=== PATIENT | female | born 1975 | race Caucasian/White ===

== ENCOUNTER 2017-12-02 04:42 | Inpatient (IN) | payer MEDICAID, SELFPAY ==
[2017-12-02] VITALS (33 sets, daily range): BP systolic 90–162; BP diastolic 50–101; PULSE 52–82; RESP 12–22; TEMP 35.6–36.6; O2SAT 93–100; BMI 24.5; BMI 23.6
--- NOTE | 2017-12-02 04:54 | EKG12_ITS ---
Test Reason : CP Blood Pressure : / mmHG Vent. Rate : 068 BPM Atrial Rate : 068 BPM P-R Int : 126 ms QRS Dur : 074 ms QT Int : 388 ms P-R-T Axes : 073 -17 -01 degrees QTc Int : 412 ms Normal sinus rhythm Nonspecific T wave abnormality Abnormal ECG Confirmed by LAURIE ANGELA, JOSE DE JESUS ([id number]), news editor BIRDIE JEFFREY ([id number]) on 12/04/2017 10:47:56 AM Referred By: NATHAN Confirmed By:JOSE DE JESUS SULLIVAN MD
--- NOTE | 2017-12-02 04:56 | ED.VISSUMM ---
- ER Visit Summary Date of Service: 12/02/17 Chief Complaint: [] Chest pain History of Present Illness: The patient is a 42 F [] complaining of midsternal chest pain with radiation to left upper extremity. Reports symptoms started 3 hours ago and awoke her from sleep. Patient reports similar symptoms in the past and was evaluated about 1 year ago for similar presentation and she ultimately had a negative stress test. Patient does report a history of COPD and is still an active smoker. No other complaints at this time. Physical Examination: [] Afebrile, vital signs stable. Cardiovascular exam is regular rate and rhythm. Lungs are clear to auscultation. Abdomen is soft and nontender. There is no lower extremity edema. Test Results: [] EKG shows normal sinus rhythm with a rate of 68 without ischemic changes or ectopy. Unchanged from previous EKG.CBC, BMP within normal limits. Chest x-ray negative per my interpretation. Troponin shows an indeterminate level of 0.14. Emergency Department Course and Treatment: [] Patient given nitroglycerin and intravenous morphine for symptom relief. Aspirin was provided upon arrival. In light of the patient's indeterminate troponin she will be admitted to the medical floor for further evaluation and serial enzymes. Case was discussed with the hospitalist, Dr. Hussein. Admit to telemetry. Disposition: [] Admission, stable. Impression: [] Chest pain Indeterminate troponin This note was generated with Jinni dictation software. It may contain incorrect words, spelling, and punctuation that were not noted in review of the chart prior to signing ED Disposition - Plan for ED Patient: Chief Complaint: Chest Pain Referrals: Bennett Blandon MD [Primary Care Provider] -
[2017-12-02 05:02] LABS: Absolute Lymphocyte Count 2.91 X10^3/ul (0.83-4.51); Absolute Neutrophil Count 4.7 X10^3/uL (2.0-7.7); Basophil# 0.07 X10^3/uL; Basophil% 0.8 % (0-1); Eosinophil# 0.13 X10^3/uL; Eosinophils% 1.5 % (0-5); Hematocrit 41.9 % (37-47); Hemoglobin 14.2 g/dl (12.0-15.0); Lymphocyte # 2.91 X10^3/ul (4.0); Lymphocyte % 33.7 % (19-41); Mean Corp Hgb Conc 33.9 g/gl (32-36); Mean Corpuscular Hgb 32.8 pg (27.0-32.0); Mean Corpuscular Volume 96.8 fL (81-99); Mean Platelet Vol. 9.1 fl (6.2-12.0); Monocyte% 9.3 % (0-10); Neutrophil # 4.71 X10^3/uL (2.7-7.7); Neutrophil % 54.5 % (47-70); Platelet Count 240 K/mm3 (150-450); RBC Distribution Width CV 12.9 % (11.6-14.6); RBC Distribution Width SD 44.8 fl (35.1-43.9); Red Blood Count 4.33 M/mm3 (4.2-5.4); White Blood Count 8.6 K/mm3 (4.4-11.0)
[2017-12-02 05:04] LABS: POSITIVE COUNT NO; POSITIVE DIFFERENTIAL NO; POSITIVE MORPHOLOGY NO
[2017-12-02] MEDS: Aspirin 81 MG TAB.CHEW 324 MG PO (05:05)
[2017-12-02 05:10] LABS: D-Dimer Quantitative (DVT/PE) 0.42 FEU/ug/m (0.27-0.49)
[2017-12-02] MEDS: Ondansetron 4 MG/2 ML Vial IV (05:22)
[2017-12-02 05:28] LABS: Anion Gap 8 (5-15); BUN 10 mg/dL (7-18); BUN/Creat Ratio 13.8 RATIO (10-20); Chloride 103 mmol/L (98-107); Creatinine, Serum 0.72 mg/dL (0.55-1.02); EST Glomerular Filtration Rate 93 mL/min (>60); Est Glom Filt Rate - Afr Amer 113 mL/min (>60); Estimated Creatinine Clearance 83.34 ml/min; Glucose 108 mg/dL (70-110); Potassium 4.4 mmol/L (3.5-5.1); Sodium Level 140 mmol/L (136-145)
--- NOTE | 2017-12-02 05:31 | RAD_ITS ---
STUDY: X-RAY CHEST REASON FOR EXAM: Female, 42 years old. Chest pain TECHNIQUE: Frontal and lateral views of the chest. COMPARISON: 07/25/2017 FINDINGS: The lungs are clear and expanded. There is no demonstrated pleural abnormality. Normal size heart. Normal mediastinum and kt. Normal visualized pulmonary arteries. Normal visualized aortic arch and descending thoracic aorta. Normal visualized thoracic spine. Normal visualized ribs, clavicles, and shoulders. There is no demonstrated abnormality of the visualized soft tissue structures of the upper abdomen. RAD/Chest PA and Lateral IMPRESSION: Normal x-ray examination of the chest. Electronically Signed: Isaías Huddleston MD at 5:57 EST Tel , Service support ,
--- NOTE | 2017-12-02 06:38 | HP.PCM_ITS ---
Problem List (1) Chest pain Status: Acute (2) Acute respiratory failure with hypoxemia Status: Acute (3) Hyponatremia Status: Acute (4) Lethargy Status: Acute (5) Trimalleolar fracture of left ankle Status: Acute Comment: 06/09....stepped in a hole (6) COPD (chronic obstructive pulmonary disease) Status: Chronic (7) Smoking addiction Status: Chronic History of Present Illness Date of Admission: 12/02/17 Chief Complaint: Chest pain The patient is a 42 year old female w/ h/o COPD, tobacco abuse, and HTN admitted for chest pain. She had chest pain this AM around 1AM. Pain was sudden and severe that it woke her up from her sleep. Pain was pressure on the left chest. It radiated down the left arm and caused ache in the left arm. Nothing appeared to make it better or worse. Morphine helped with the pain. She had similar episode of pain last year and had a stress test done about a year ago that was negative. She still smokes and lives a sedentary lifestyle. Past Medical History Past Medical History (Chronic Problems): Chronic Problems Smoking addiction (Chronic) COPD (chronic obstructive pulmonary disease) (Chronic) Allergies bupropion HCl [From Wellbutrin] Adverse Reaction (Verified 12/02/17 04:44) Other prednisone Adverse Reaction (Verified 12/02/17 04:44) Other Home Medications: Ambulatory Orders Medication Instructions Recorded Albuterol Aerosols [Ventolin 2.5 mg INHALATION Q4HWA.RT 02/16/17 Aerosols] Albuterol Inhaler [Ventolin Hfa] 2 puff INHALATION Q4H PRN PRN #1 02/16/17 inhaler Budesonide/Formoterol 160/4.5 2 puff INHALATION BID 12/02/17 [Symbicort 160/4.5 Mcg Inhaler (SP)] Surgical History: hysterectomy - with BL oophorectomy for cervical CA,, - - neurosurgery to repair a intracerebral aneurysm. 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 Denies: Palpitations Respiratory: Denies: Cough, Shortness of breath at rest, Sputum production Gastrointestinal: Denies: Abdominal Pain, Nausea, Vomiting Genitourinary: Denies: Dysuria Musculoskeletal: Denies: Joint Pain, Joint Tenderness Skin: Denies: Rash, Wounds Neurological: Denies: Numbness, Tingling, Focal weakness Psychiatric: Denies: Anxiety, Depression, Homicidal Ideations, Suicidal Ideations Hematologic/ Lymphatic: Denies: Easy Bruising, Easy Bleeding VTE Information - Inpt Only VTE Present on Admission: No VTE Mechan Device Prophylaxis: SCD's VTE Pharm Prophylaxis ordered?: Yes Patient Problems: Active and Suspected Problems Chest pain (Acute) - Physical Exam General: Alert, Oriented x3, Cooperative HEENT: Atraumatic, PERRLA, EOMI, Normocephalic Neck: Supple, No JVD, Negative Carotid Bruits Lungs: Short of Breath, Wheezes Cardiovascular: Regular rate, No murmurs Abdomen: Bowel Sounds Present, Soft, Non Tender Extremities: No edema, Capillary Refill Less than 3 Seconds Skin: No rashes, No breakdown Musculoskeletal: No Tenderness to Palpation of Joints or Extremities Neurological: Cranial nerves II-XII grossly intact Psych/Mental Status: Normal Affect, Appropriate Vital Signs Temp Pulse Resp BP Pulse Ox 96.1 F L 69 20 H 106/69 96 12/02/17 04:43 12/02/17 05:53 12/02/17 05:53 12/02/17 05:53 12/02/17 05:53 Oxygen Flow Rate 2 Oxygen Delivery Method Nasal Cannula Weight: 62.9 kg Body Mass Index (BMI) 24.5 Laboratory Tests Past 24 Hrs 12/02/17 12/02/17 12/02/17 04:54 04:54 04:54 WBC 8.6 RBC 4.33 Hgb 14.2 Hct 41.9 MCV 96.8 MCH 32.8 H MCHC 33.9 RDW 12.9 RDW Differential 44.8 H Plt Count 240 MPV 9.1 Immature Gran % (Auto) 0.200 Neut % (Auto) 54.5 Lymph % (Auto) 33.7 Crisp % (Auto) 9.3 Eos % (Auto) 1.5 Baso % (Auto) 0.8 Absolute Neuts (auto) 4.7 Absolute Lymphs (auto) 2.91 Total Counted Not Reportable D-Dimer Quant (PE/DVT) 0.42 Sodium 140 Potassium 4.4 Chloride 103 Carbon Dioxide 29.0 Anion Gap 8 BUN 10 Creatinine 0.72 Estim Creat Clear Calc 83.34 Est GFR (MDRD) Af Amer 113 Est GFR (MDRD) Non-Af 93 BUN/Creatinine Ratio 13.8 Glucose 108 Calcium 9.0 Troponin I 0.14 H Assessment/Plan Active and Suspected Problems Chest pain (Acute) 42 year old female w/ h/o COPD, tobacco abuse, and HTN admitted for chest pain. 1) Chest pain: Heart score 4 EKG and xray unremarkable. Trop elevated 0.14 Will get lipid. Will start statin, ASA, nitro, morphine, oxygen and coreg. Serial trops and stress test in AM. ECHO pending. Monitor. 2) Tobacco abuse: Education done. Monitor. 3) COPD: No acute exacerbation. Resume home meds. C/w bronchodilator. Monitor. 4) Prophylaxis: Heparin / SCD.
--- NOTE | 2017-12-02 07:07 | NURSING ---
Pt. arrived to PCU room 122 around 0645. No c/o pain or SOB at this time. Admission started, will report off to dayshift RN to finish admission. Pt. VSS
--- NOTE | 2017-12-02 08:13 | PCM.PN.BLA ---
Progress Note Patient is a 42-year-old female with a past medical history of hypertension, nicotine dependence, COPD, cervical cancer with BRIANNA/BSO and resection of an intracerebral aneurysm who presented to the emergency room at [facility] on 12/02/2017 complaining of chest pain that awoke her from sleep. It was located at the left chest and radiated down the left arm. Significant lab in the emergency room included a normal d-dimer at 0.42 and a troponin elevation to 0.14. Chest x-ray showed no infiltrates, pulmonary vascular congestion or pleural effusions. CTA of the chest done 1 year ago showed a normal aortic arch. Stress test on 07/26/2016 was negative for ischemia and the gated nuclear ejection fraction was 70%. Troponin has been increased in the past to 0.17, 1 month prior to the stress test. It has also been < 0/02 in the past. EKG showed no suspicious ST or T-wave changes and was unchanged from prior EKG. She was admitted to a monitored bed on PCU and stress test has been ordered for Sunday a.m. and also an echocardiogram. The pain last night was a 10/10 and currently is a 3/10. She has been getting exertional CP for the past year and it goes away with rest for a few minutes. The pain last night was associated with Nausea and she vomited twice.....once at home and once in the ER. She also had diaphoresis and the pain radiated down the left arm. She gets reflux sometimes and it goes away with baking soda and water but, last night she tried this and it did not work. The SL NTG made the pain better but it would recur. The CP last night would be severe for a few minutes, go away and then come right back. EKG's show non-specific T wave flattening with no ST elevation. There is a FH of CAD in her maternal GF and she thinks her mother recently had an SC, but it may have been a stroke. She has been smoking since the age of 13 and is currently smoking 1 PPD. Telemetry shows NSR with no significant ectopy. RR slows down at night. Has never been tested for sleep apnea. Alert and oriented ?3, having some chest discomfort but only a 3/10 and nonradiating Lungs-clear to auscultation Heart-regular rate and rhythm, normal S1, normal S2, no murmur, no gallop, no rub Abdomen-soft, nontender, nondistended, normal bowel sounds, no bruits Carotids-brisk upstroke with good pulse volume and no bruits heard No jugular vein distention Affect is flat Nonfocal neuro exam Impressions 1. NSTEMI 2. Hypertension 3. COPD 4. Tobacco dependence 5. History of cervical cancer, status post BRIANNA/BSO 6. History of intracerebral aneurysm-status post clipping Start nitroglycerin infusion Loading dose of Plavix, 300 mg Lovenox 1 mg/kg subcu ?[address] Alonso-will likely need cardiac catheterization smoking cessation counseling given Aspirin 81 mg daily Increase atorvastatin to 80 mg p.o. nightly Continue carvedilol ordered by Dr. Hussein Echo in the a.m. 40 minutes spent getting hx, reviewing chart, placing orders and discussing with Dr. Alonso and follow up visits to ensure the pain is improving. Code Visit Procedures: 47633 Prolonged Physician INPT
[2017-12-02] MEDS: Aspirin E.C. 81 MG Tablet PO (09:40)
[2017-12-02] MEDS: Carvedilol 3.125 MG TABLET PO ×2 (09:40→21:22)
[2017-12-02 10:10] LABS: Cholesterol 209 mg/dL (200); High Density Lipoprotein 46 mg/dL; Triglycerides 138 mg/dL; Very Low Density Lipoprotein 28 mg/dL (5-40)
[2017-12-02 10:21] LABS: International Normalized Ratio 0.9
[2017-12-02] MEDS: Clopidogrel Bisulfate 300 MG Tablet PO (10:21)
[2017-12-02] MEDS: Enoxaparin 60 MG/0.6 ML Syringe SC ×2 (10:21→17:57)
[2017-12-02 10:22] LABS: Partial Thromboplast Time 31.3 Seconds (24.1-36.2)
[2017-12-02] MEDS: Albuterol 2.5 MG/3 ML VIAL.NEB. INHALATION ×2 (11:14→20:30)
[2017-12-02] MEDS: Budesonide Respules 0.5 MG/2 ML AMPUL.NEB. INHALATION (11:15)
--- NOTE | 2017-12-02 11:44 | PCM.CONS.C ---
Problem List (1) Non-STEMI (non-ST elevated myocardial infarction) Status: Acute (2) Smoking addiction Status: Chronic (3) Chest pain Status: Acute Reason for Consult Date of Consultation: 12/02/17 Reason for Consultation: Chest pain, non-STEMI, tobacco abuse, History of Present Illness: The patient is a 42 year old F, no previous known cardiac history, nondiabetic, positive smoker 1 pack per day for the past 30 years, nondrinker, occasional THC, last dose 3 days ago, apparently with previously known hypertension hypercholesterolemia but on no medications. In July 2016 the patient developed substernal chest pain and underwent a non-walking nuclear stress test which reportedly was negative for inducible ischemia. Patient has never had a catheterization. Last evening around 1 AM she awoke with severe substernal 10 out of 10 chest heaviness, with associated nausea and vomiting, which waxed and waned over the next several hours about 4 times. When the pain came back fourth time, she was brought to the emergency room where her chest pain was relieved with sublingual nitroglycerin. Her initial EKG showed normal sinus rhythm with subtle nonspecific ST and T-wave changes. Her initial troponin was 0.14, and now is increased to 0.86. Patient has had periodic chest pain this morning which is relieved with sublingual nitroglycerin. She is currently chest pain-free. Patient was treated with baby aspirin, subcu Lovenox, and transitioned to nitroglycerin paste. On further history she denies any exertional chest pain, angina, shortness of breath prior to this event last evening other than the event in July 2016. Patient does report decreased exercise capacity and increasing fatigue. On further history the patient has had a diagnosis of a uterine type cancer in 2002 and reportedly is status post partial and complete hysterectomy. She required no chemotherapy or x-ray therapy after that. [] Past Medical History Allergies/Adverse Reactions: Allergies bupropion HCl [From Wellbutrin] Adverse Reaction (Verified 12/02/17 04:44) Other prednisone Adverse Reaction (Verified 12/02/17 04:44) Other Home Medications: Ambulatory Orders Medication Instructions Recorded Albuterol Aerosols [Ventolin 2.5 mg INHALATION Q4HWA.RT 02/16/17 Aerosols] Albuterol Inhaler [Ventolin Hfa] 2 puff INHALATION Q4H PRN PRN #1 04/14/17 inhaler Budesonide/Formoterol 160/4.5 2 puff INHALATION PRN PRN 12/02/17 [Symbicort 160/4.5 Mcg Inhaler (SP)] Past Medical History (Chronic Problems): Chronic Problems Smoking addiction (Chronic) COPD (chronic obstructive pulmonary disease) (Chronic) Surgical History: hysterectomy - with BL oophorectomy for cervical CA,, - - neurosurgery to repair a intracerebral aneurysm. 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 Denies: Shortness of Breath, Orthopnea, PND, Peripheral Edema, Palpitations, Lightheadedness, Dizziness, Near Syncope, Syncope Respiratory: Denies: Cough, Sputum Production, Hemoptysis Gastrointestinal: Reports: Nausea, Emesis. Denies: Hematemesis, Hematochezia, Melena Genitourinary: Denies: Dysuria, Hematuria Skin: Denies: Rash Subjectve: Patient chest pain-free, no acute distress. Objective: Vital Signs Temp Pulse Resp BP Pulse Ox 98 F 52 L 16 91/64 98 12/02/17 06:48 12/02/17 11:16 12/02/17 11:16 12/02/17 11:05 12/02/17 11:05 Oxygen Flow Rate 2 Oxygen Delivery Method Nasal Cannula Weight: 133 lb 6.075 oz Body Mass Index (BMI) 23.6 Intake and Output for Last 24 Hours 11/30/17 12/01/17 12/02/17 23:59 23:59 23:59 Intake Total 100 / 100 Balance 100 / 100 General: Awake, Alert, Oriented x 3 HEENT: PERRL, EOMI, Sclera Non Icteric Neck: Supple, Good ROM, No Lymph Node Enlargement Lungs: Clear to auscultation Cardiovascular: Regular Rhythm, Normal S1, Normal S2, No Murmurs, No Rubs, No Gallops Vascular: No Carotid Bruits, Normal Femoral Pulses, Normal Radial Pulses, Normal Dorsalis Pedal Pulse, Normal Posterior Tibial Pulses Abdomen: Bowel Sounds Present, Soft, Non Tender, No HSM, No Organomegaly Extremities: No Cyanosis, No Clubbing, No edema Neurological: No Focal Motor or Sensory Deficit 12/02/17 08:27: Troponin I 0.86 H* 12/02/17 08:27: Triglycerides 138, Cholesterol 209 H, LDL Cholesterol 135 H, VLDL Cholesterol 28, HDL Cholesterol 46 12/02/17 10:05: PT 12.0, INR 0.9, APTT 31.3 Rhythm: Telemetry negative. EKG: As above ECHO: Pending Stress Test: Cardiac Cath: Pending PCI: CT Surgery: Holter monitor: EPS: PPM: CXR: Chest CT Scan: As above Assessment/Plan #1. Unstable angina: The patient presents with acute onset substernal chest pain waking her up from a sound sleep, waxing and waning chest pain since that time, abnormal initial troponin 0 0.14 increase and is 0.86. At this point I recommend the patient continue baby aspirin 81 mg p.o. daily, that should be loaded with Plavix 300 mg ?1 now followed by 75 mg a day, continued subcu Lovenox 1 mg/kg subcu twice daily holding it for tomorrow morning in anticipation for left heart catheterization. The risks/benefits of the procedure were thoroughly explained the patient including specific attention to lack of on-site surgical backup and emergent transfer protocols, and the patient is agreed to proceed. Out of an abundance of caution given her confusion about her gynecological history, I recommend that we obtain a urine test. Also recommend that she continue Coreg at this time. We will obtain a 2D echo with Doppler to determine if she has any LV dysfunction. If so she will require afterload reduction with CHIKI inhibitor or ARB. In addition I recommend that she be placed on nitroglycerin paste 1 inch every 6 hours, and if this is ineffective would recommend an IV nitroglycerin drip. 2. Hyperlipidemia: Her LDL cholesterol is 135 and HDL is 46. I am in agreement with high-dose Lipitor therapy. We will repeat lipid profile in 6 weeks time. 3. Tobacco cessation: I had a long and thorough discussion with the patient regarding tobacco cessation and recommended cessation of all tobacco products as well as THC products. 4. Thank you very much for the opportunity to precipitate in the cardiac care of your patient. Consultation time took place between 1030 11 AM. Code Visit Inpatient E&M: 71384 Init Hosp L2
--- NOTE | 2017-12-02 12:39 | CASEMGMT ---
According to [facility] website, the following are in-network tertiary facilities: [facility], [facility], [facility], [facility], [facility], [facility], [place], [facility], and . Jack DECKER CM
[2017-12-02] MEDS: Atorvastatin Calcium 80 MG Tablet PO (21:22)
[2017-12-02 21:26] LABS: Internal QC Validated? YES +Cl - CLEAR BKGD; Pregnancy, Urine Negative Negative
[2017-12-02 21:46] LABS: Amphetamine Urine VISTA NEGATIVE (<1000 ng/mL); Barbiturate Urine VISTA NEGATIVE (< 200 ng/mL); Benzodiazepine Urine VISTA NEGATIVE (< 200 ng/mL); Cocaine Urine VISTA NEGATIVE (< 300 ng/mL); Ecstacy Urine VISTA NEGATIVE (< 500 ng/mL); Methadone Urine VISTA NEGATIVE (< 300 ng/mL); PCP Urine VISTA NEGATIVE (< 25 ng/mL); THC Urine VISTA POSITIVE (< 50 ng/mL); Vista UDS pH Range 6
[2017-12-03] VITALS (47 sets, daily range): BP systolic 90–172; BP diastolic 52–140; PULSE 64–86; RESP 10–25; TEMP 36.6–36.8; O2SAT 92–99; BMI 23.6
[2017-12-03] MEDS: Zolpidem Tartrate 5 MG Tablet PO (00:18)
[2017-12-03] MEDS: Acetaminophen 325 MG Tablet 650 MG PO ×2 (00:18→04:42)
[2017-12-03 05:18] LABS: Absolute Lymphocyte Count 3.08 X10^3/ul (0.83-4.51); Absolute Neutrophil Count 5.9 X10^3/uL (2.0-7.7); Basophil# 0.02 X10^3/uL; Basophil% 0.2 % (0-1); Eosinophil# 0.22 X10^3/uL; Eosinophils% 2.2 % (0-5); Hematocrit 37.1 % (37-47); Hemoglobin 12.3 g/dl (12.0-15.0); Lymphocyte # 3.08 X10^3/ul (4.0); Lymphocyte % 30.5 % (19-41); Mean Corp Hgb Conc 33.2 g/gl (32-36); Mean Corpuscular Hgb 32.3 pg (27.0-32.0); Mean Corpuscular Volume 97.4 fL (81-99); Mean Platelet Vol. 9.1 fl (6.2-12.0); Monocyte# 0.84 X10^3/uL; Monocyte% 8.3 % (0-10); Neutrophil # 5.92 X10^3/uL (2.7-7.7); Neutrophil % 58.7 % (47-70); Platelet Count 240 K/mm3 (150-450); RBC Distribution Width CV 12.9 % (11.6-14.6); RBC Distribution Width SD 44.5 fl (35.1-43.9); Red Blood Count 3.81 M/mm3 (4.2-5.4); White Blood Count 10.1 K/mm3 (4.4-11.0)
[2017-12-03 05:23] LABS: Partial Thromboplast Time 35.7 Seconds (24.1-36.2); Prothrombin Time (Protime)PT. 12.9 SECONDS (11.7-14.9)
[2017-12-03 05:35] LABS: POSITIVE COUNT NO; POSITIVE DIFFERENTIAL NO; POSITIVE MORPHOLOGY NO
[2017-12-03 05:46] LABS: AST(SGOT) 17 U/L (15-37); Alanine Aminotransfer ALT/SGPT 19 U/L (13-56); Albumin, Serum 3.2 g/dL (3.2-5.0); Alkaline Phosphatase 122 U/L (45-117); Anion Gap 7 (5-15); BUN 9 mg/dL (7-18); BUN/Creat Ratio 15.2 RATIO (10-20); Calcium,Total 8.4 mg/dL (8.5-10.1); Chloride 104 mmol/L (98-107); Creatinine, Serum 0.59 mg/dL (0.55-1.02); EST Glomerular Filtration Rate 117 mL/min (>60); Est Glom Filt Rate - Afr Amer 142 mL/min (>60); Globulin 3.3 g/dL (2.2-4.2); Glucose 103 mg/dL (70-110); Magnesium 2.4 mg/dL (1.6-2.6); Potassium 3.8 mmol/L (3.5-5.1); Protein, Total 6.5 g/dL (6.4-8.2); Sodium Level 139 mmol/L (136-145); Thyroid Stim Hormone (TSH) 1.98 uIU/mL (0.358-3.74)
--- NOTE | 2017-12-03 05:55 | ECHOCS_ITS ---
Reason For Study: Chest Pain Procedure This was a 2D Doppler, Color Flow transthoracic echocardiogram. Exam performed portable in ICU/CCU. Left Ventricle Normal LV size. The estimated ejection fraction is 50 %. Transmitral and pulmonary venous doppler flow suggestive of impaired relaxation of left ventricle. Walden : Hypokinetic. Right Ventricle Normal RV size. Normal systolic function. Atria Normal left atrium. Normal right atrium. Mitral Valve Normal mitral valve. Tricuspid Valve Normal tricuspid valve. Aortic Valve Normal aortic valve. Pulmonic Valve Normal pulmonic valve. Great Vessels Normal aortic root. The pulmonary artery is normal size. Normal inferior vena cava. Pericardium/Pleural No pericardial effusion. Medication Definity0.6ml given slow IV push to enhance endocardial definition. MMode/2D Measurements & Calculations LVIDd: 4.7 cm IVSd: 0.90 cm Ao root diam: 2.9 cm LVIDs: 3.0 cm LVPWd: 0.71 cm LA dimension: 3.5 cm RVDd: 2.3 cm FS: 35.7 % LAV(MOD-bp): 31.1 ml LAV(MOD-bp) Indexed: 19.1 ml/m2 LA A4 area: 13.3 cm2 RA A4 area: 11.9 cm2 LAV(MOD-sp2): 32.3 ml LAV(MOD-sp4): 31.4 ml Doppler Measurements & Calculations MV E max david: 64.2 cm/sec Lat Peak E' David: 5.9 cm/sec Med Peak E' David: 5.7 cm/sec MV A max david: 80.1 cm/sec E/E' lat: 10.9 E/E' med: 11.2 MV E/A: 0.80 Ao V2 max: 118.9 cm/sec LV V1 max: 89.4 cm/sec PA V2 max: 65.3 cm/sec Ao max P.7 mmHg LV V1 max P.2 mmHg Ao V2 mean: 83.0 cm/sec Ao mean P.1 mmHg Ao V2 VTI: 25.0 cm Interpretation Summary Normal LV size. The estimated ejection fraction is 50 %. Transmitral and pulmonary venous doppler flow suggestive of impaired relaxation of left ventricle Contrast injection was performed. Ordering Physician: Brandyn Hussein Referring Physician: Delonte Blandon M.D. Performed By: Kathi Garvin, NICK, RVT
--- NOTE | 2017-12-03 05:55 | EKG12_ITS ---
Test Reason : MORNING EKG Blood Pressure : / mmHG Vent. Rate : 077 BPM Atrial Rate : 077 BPM P-R Int : 118 ms QRS Dur : 082 ms QT Int : 458 ms P-R-T Axes : 081 -04 257 degrees QTc Int : 518 ms Normal sinus rhythm with sinus arrhythmia ST & Marked T wave abnormality, consider anterolateral ischemia Prolonged QT Abnormal ECG When compared with ECG of 02-DEC-2017 04:46, MANUAL COMPARISON REQUIRED, DATA IS UNCONFIRMED Confirmed by ADINA UMANZOR ([id number]), art editor BIRDIE JEFFREY ([id number]) on 12/06/2017 12:00:50 PM Referred By: Confirmed By:ADINA UMANZOR
[2017-12-03] MEDS: Clopidogrel Bisulfate 75 MG Tablet PO (06:32)
[2017-12-03] MEDS: Aspirin E.C. 81 MG Tablet PO (06:32)
[2017-12-03] MEDS: Carvedilol 3.125 MG TABLET PO ×2 (06:32→21:42)
[2017-12-03] MEDS: 0.9% Normal Saline 1,000 ML 15 ML IV (06:47)
[2017-12-03] MEDS: DiphenhydrAMINE 25 MG Capsule 50 MG PO (07:37)
--- NOTE | 2017-12-03 08:49 | NURSING ---
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
--- NOTE | 2017-12-03 08:55 | EKG12_ITS ---
Test Reason : POST PCI Blood Pressure : / mmHG Vent. Rate : 073 BPM Atrial Rate : 073 BPM P-R Int : 130 ms QRS Dur : 076 ms QT Int : 464 ms P-R-T Axes : 071 -14 240 degrees QTc Int : 511 ms Normal sinus rhythm ST & Marked T wave abnormality, consider anterolateral ischemia Prolonged QT Abnormal ECG When compared with ECG of 03-DEC-2017 05:31, MANUAL COMPARISON REQUIRED, DATA IS UNCONFIRMED Confirmed by ADINA UMANZOR ([id number]), international editorial producer BIRDIE JEFFREY ([id number]) on 12/06/2017 12:07:20 PM Referred By: LUIS Confirmed By:ADINA UMANZOR
--- NOTE | 2017-12-03 08:59 | PCM.PROGNOTE ---
Patient Problems: Active and Suspected Problems Chest pain (Acute) Non-STEMI (non-ST elevated myocardial infarction) (Acute) Subjective: 42-year-old female admitted to the hospital with NSTEMI. Cardiac catheterization was done today revealed an 85% lesion in the LAD which was stented. There was a wall motion abnormality in the apex with a mild decrease in ejection fraction. Dr. Alonso has started her on Cozaar for LV dysfunction. She basically had single-vessel disease. She denies chest pain or shortness of breath. She is still somewhat drowsy after her catheterization. Her only complaint currently is back pain which she has chronically. EKG shows deep T-wave inversions in the precordial leads. Telemetry shows normal sinus rhythm. Blood pressure stable. - Physical Exam General: Alert, Cooperative, No apparent distress HEENT: Atraumatic, PERRLA, EOMI Oral: Moist Mucosa Neck: Supple, Trachea Midline Lungs: Clear to auscultation, Diminished Cardiovascular: Regular rate, Regular Rhythm, Normal S1, Normal S2, No murmurs, No Gallop Abdomen: Bowel Sounds Present, Soft, Non Tender, Non-Distended Extremities: - - The dressing on the right groin is dry and there is no evidence of swelling. Skin: No rashes Neurological: Cranial nerves II-XII grossly intact, Neuro grossly intact Vital Signs Temp Pulse Resp BP Pulse Ox 98.0 F 75 12 107/75 97 12/03/17 07:00 12/03/17 07:00 12/03/17 07:00 12/03/17 07:00 12/03/17 07:35 Oxygen Flow Rate 2 Oxygen Delivery Method Nasal Cannula Intake and Output for Last 24 Hours 12/01/17 12/02/17 12/03/17 23:59 23:59 23:59 Intake Total 731 / 731 Balance 731 / 731 Laboratory Tests Past 24 Hrs 12/02/17 12/02/17 12/02/17 12:55 19:10 21:00 WBC RBC Hgb Hct MCV MCH MCHC RDW RDW Differential Plt Count MPV Immature Gran % (Auto) Neut % (Auto) Lymph % (Auto) [place] % (Auto) Eos % (Auto) Baso % (Auto) Absolute Neuts (auto) Absolute Lymphs (auto) Total Counted PT INR APTT Sodium Potassium Chloride Carbon Dioxide Anion Gap BUN Creatinine Estim Creat Clear Calc Est GFR (MDRD) Af Amer Est GFR (MDRD) Non-Af BUN/Creatinine Ratio Glucose Calcium Magnesium Total Bilirubin AST ALT Alkaline Phosphatase Troponin I 0.98 H* 0.61 H* Total Protein Albumin Globulin Albumin/Globulin Ratio TSH Urine Test Urine Opiates Screen POSITIVE H Urine Methadone Screen NEGATIVE Ur Barbiturates Screen NEGATIVE Ur Phencyclidine Scrn NEGATIVE Ur Amphetamines Screen NEGATIVE U Methamphetamin-MDMA NEGATIVE U Benzodiazepines Scrn NEGATIVE Urine Cocaine Screen NEGATIVE U Cannabinoids Screen POSITIVE H Ur Drug Screen Comment 12/02/17 12/03/17 12/03/17 21:00 05:02 05:02 WBC 10.1 RBC 3.81 L Hgb 12.3 Hct 37.1 MCV 97.4 MCH 32.3 H MCHC 33.2 RDW 12.9 RDW Differential 44.5 H Plt Count 240 MPV 9.1 Immature Gran % (Auto) 0.100 Neut % (Auto) 58.7 Lymph % (Auto) 30.5 [place] % (Auto) 8.3 Eos % (Auto) 2.2 Baso % (Auto) 0.2 Absolute Neuts (auto) 5.9 Absolute Lymphs (auto) 3.08 Total Counted Not Reportable PT INR APTT Sodium 139 Potassium 3.8 Chloride 104 Carbon Dioxide 28.0 Anion Gap 7 BUN 9 Creatinine 0.59 Estim Creat Clear Calc 101.70 Est GFR (MDRD) Af Amer 142 Est GFR (MDRD) Non-Af 117 BUN/Creatinine Ratio 15.2 Glucose 103 Calcium 8.4 L Magnesium 2.4 Total Bilirubin 0.40 AST 17 ALT 19 Alkaline Phosphatase 122 H Troponin I Total Protein 6.5 Albumin 3.2 Globulin 3.3 Albumin/Globulin Ratio 1.0 TSH 1.98 Urine Test Negative Urine Opiates Screen Urine Methadone Screen Ur Barbiturates Screen Ur Phencyclidine Scrn Ur Amphetamines Screen U Methamphetamin-MDMA U Benzodiazepines Scrn Urine Cocaine Screen U Cannabinoids Screen Ur Drug Screen Comment 12/03/17 05:02 WBC RBC Hgb Hct MCV MCH MCHC RDW RDW Differential Plt Count MPV Immature Gran % (Auto) Neut % (Auto) Lymph % (Auto) [place] % (Auto) Eos % (Auto) Baso % (Auto) Absolute Neuts (auto) Absolute Lymphs (auto) Total Counted PT 12.9 INR 1.0 APTT 35.7 Sodium Potassium Chloride Carbon Dioxide Anion Gap BUN Creatinine Estim Creat Clear Calc Est GFR (MDRD) Af Amer Est GFR (MDRD) Non-Af BUN/Creatinine Ratio Glucose Calcium Magnesium Total Bilirubin AST ALT Alkaline Phosphatase Troponin I Total Protein Albumin Globulin Albumin/Globulin Ratio TSH Urine Test Urine Opiates Screen Urine Methadone Screen Ur Barbiturates Screen Ur Phencyclidine Scrn Ur Amphetamines Screen U Methamphetamin-MDMA U Benzodiazepines Scrn Urine Cocaine Screen U Cannabinoids Screen Ur Drug Screen Comment Assessment/Plan Active and Suspected Problems Chest pain (Acute) Non-STEMI (non-ST elevated myocardial infarction) (Acute) Impressions 1. NSTEMI 2. Hypertension 3. COPD 4. Tobacco dependence 5. History of cervical cancer, status post BRIANNA/BSO 6. History of intracerebral aneurysm-status post clipping 7. Coronary artery disease with an 85% occlusion of the LAD-status post PCI and drug-eluting stent 8. Left ventricular dysfunction at the apex 9. Dyslipidemia Admitted to ICU post stent-currently stable and without chest pain Abnormal EKG with deep T-wave inversions V2-V6 and in the inferior leads started on an ARB by Dr. Alonso Will need dual antiplatelet therapy for 1 year and lifelong aspirin Nitroglycerin has been discontinued. Continue carvedilol, atorvastatin, aspirin, Plavix, losartan and as needed sublingual nitroglycerin for chest pain. Possible discharge on 12/04/2017 Echocardiogram todaySmoking cessation advised again. she feels the nicotine patch is helping and will RX at DC meet with cardiac rehab prior to DC
[2017-12-03] MEDS: 0.9% Normal Saline 1,000 ML 150 ML IV (09:00)
[2017-12-03 09:01] LABS: ACT Activated Clotting Time 252 sec (74-137)
[2017-12-03 09:52] LABS: CPK Total, Creatine Kinase 50 U/L (26-192)
[2017-12-03 09:54] LABS: Hematocrit 36.5 % (37-47); Hemoglobin 11.9 g/dl (12.0-15.0); Mean Corp Hgb Conc 32.6 g/gl (32-36); Mean Corpuscular Hgb 31.8 pg (27.0-32.0); Mean Corpuscular Volume 97.6 fL (81-99); Mean Platelet Vol. 9.3 fl (6.2-12.0); Platelet Count 223 K/mm3 (150-450); RBC Distribution Width CV 12.9 % (11.6-14.6); RBC Distribution Width SD 45.3 fl (35.1-43.9); Red Blood Count 3.74 M/mm3 (4.2-5.4); White Blood Count 9.3 K/mm3 (4.4-11.0)
[2017-12-03 09:55] LABS: Scan Indicated on CBC? Y/N NO
--- NOTE | 2017-12-03 10:10 | CL.I_ITS ---
Patient Name: CANDIE IRIS Nathan Study Date: 12/03/2017 Performing: Mat Alonso MD Ht: 63 inches 160 cm : 1975 Wt: 134.7 lbs 61 kg Age: 42 Gender: female BSA: 1.63 PROCEDURE(S) PERFORMED QH91-VET/COR/LV ZM34-LHB W OR WO PTCA, SINGLE CORONARY ARTERY CLINICAL PROFILE AND CO-MORBIDITIES INDICATIONS: Unstable Angina Stress/Imaging Stress/Image Study Performed: No Angina Classification Anginal Classification w/in 2 Weeks: CCS III CAD Presentations: Unstable angina. Non-STEMI. Symptom onset Date/Time: 12/02/2017 Time Not Availa ble Comorbidities/Risk Factors: Hypertension Dyslipidemia Current/Recent Smoker (< 1year) CONCLUSIONS Segmented LV systolic dysfunction- Mild Non obstructive coronary arteries Single vessel CAD of the Critical mid LAD stenosis. Successful PTCA/LIZETH of the mid LAD with a 2.5 x 20 Promus Synergy; 75%-->0%, no dissection. RECOMMENDATIONS Referred for immediate PCI Risk factor modification Management as per referring Digital Account Manager Highly recommend quitting all tobacco products Follow up with primary emr trainer Risk factor modification ASA Indefinitley Plavix for at least 12 months Routine post interventional care Refer for Outpatient Cardiac Rehab Manual sheath removal per protocol Follow up with Dr. Alonso Medical management of remaining non-obstructive CAD. DESCRIPTION OF PROCEDURE The patient arrived to the procedure lab. The risks and benefits of the procedure as well as a full d escription of our services here and lack of surgical backup were fully explained to the patient and/o r their significant other prior to the catheterization. The Timeout was completed, verifying the nicky ect patient and procedure. The patient's procedural site was prepped and draped in the usual fashion. Local anesthetic was given subcutaneously to right groin region with Lidocaine 2%. Using a modified Seldinger technique, arterial access was obtained via the right femoral artery, a 4Fr sheath was inse rted. Left Coronary Artery selective angiography was performed in multiple views using a 4 Fr. JL5 c atheter. Right Coronary Artery selective angiography was then performed in multiple views using a 4 F r. 3DRC catheter. Left Ventriculography was performed in MEDINA projection using a 4 Fr. Pigtail cathete r. LV to AO pullback pressures were then recorded Arterial sheath was exchanged for a 6 Fr Sheath EBU 3.5 Guide catheter was inserted and engaged into the LCA. Kerman Guide wire was advanced to the LAD. 2.0 by 12 Balloon catheter was inserted. Ballo on catheter was advanced across lesion in the LAD, mid. PTCA balloon inflated at 6 atms for 14 secs 2 .5 by 20 Drug Eluting stent was inserted Drug Eluting stent was advanced across the lesion in the LAD , mid.. . The arterial sheath was sutured in place and capped. CORONARY ANGIOGRAPHY DOMINANCE: Right Dominant LEFT HEART ASSESSMENT Left Ventricular Ejection Fraction: by LV Gram 50 % Anterior Hypokinesis - Mild. Apical Hypokinesis - Moderate LEFT MAIN: Angiographically normal LEFT ANTERIOR DECENDING ARTERY: MID LAD: 75 % Stenosis CIRCUMFLEX ARTERY: Mild luminal irregularities less than 30% RIGHT CORONARY ARTERY: Mild luminal irregularities less than 30% RT PDA: Proximal - Mild luminal irregularities less than 30% INTERVENTION INFORMATION LESION SITE: LAD (Mid) Lesion Complexity: High/C, lesion at bifurcation: No, thrombus present: No, lesion length: 20 mm, cul prit lesion: Yes Pre Stenosis: 75 % Pre intervention ESTEFANIA flow: 3 PROCEDURE: Drug Eluting Stent with pre dilatation. Post Stenosis: 0 % Post intervention ESTEFANIA flow: 3 Lesion Devices: Barreto .014 BMW Kerman Straight 190cm Medtronic 6 Fr EBU3.5 100cm Guide Catheter Mann Sci EMERGE MR 2.00x12 BALLOON Mann Sci Synergy MR LIZETH 2.50x20 COMPLICATIONS No Complications PROCEDURE MEDICATIONS Versed 1 mg IV Atropine 1mg/10ml 0.25 amp @ 12/03/2017 08:25:38 Heparin 6000 unit(s) IV 12/03/2017 08:29:42 Nitro glycerin 25mg / 250ml D5W @ 12/03/2017 07:52:30 Nitro glycerin 25mg / 250ml D5W @ 5 mcg/min arrived on 12/03/2017 07:55:47 Nitro glycerin 25mg / 250ml D5W @ 0 mcg/min discontinued 12/03/2017 08:24:42 Nitro 200 mcg IC 12/03/2017 08:31:36 Nitro 200 mcg IC 12/03/2017 08:36:34 Nitro 200 mcg IC 12/03/2017 08:40:25 IV Bolus: .9 NaCl 200 ml total 12/03/2017 08:49:36 IV Fluids: .9 NaCl increased to wide open ml/hr 12/03/2017 08:23:33 SUMMARY OF HEMODYNAMIC DATA Time AIR REST ECG 07:52:40 AO 100/70 (84) SA 08:22:54 LV 161/7, 27 08:27:56 LV 160/-10, 15 08:28:02 LVp 155/-11, 13 08:28:09 AOp 155/78 (108) 08:28:14 AO 147/72 (102) 08:30:46 Signed By Mat Alonso MD On 12/03/2017 10:09:52 Mat Alonso MD
[2017-12-03 11:01] LABS: ACT Activated Clotting Time 169 sec (74-137)
[2017-12-03] MEDS: Atropine Sulfate 1 MG/10 ML Syringe 0.25 MG IV (11:21)
[2017-12-03] MEDS: Labetalol 100 MG/20 ML Vial IV (11:51)
[2017-12-03] MEDS: tiZANidine HCl 2 MG Tablet PO (11:52)
--- NOTE | 2017-12-03 11:55 | CRPHASE1_ITS ---
Patient Data/Charges Vehicle Delivery Worker:: Mat Alonso Phase I Charge:: Level I - Education - INFORMATION LEFT WITH PATIENT IN PAIN AT THIS TIME Risk Factors/Lifestyle Smoking Status: Current every day smoker Hx Hypertension: Yes Height: 1.6 m Weight:: 60.328 kg BMI: 23.6 Stress: Long-standing Caffeine: Yes Risk Factor for Sedentary Lifestyle: Moderate Risk Family History: Asthma Laboratory Values: Cardiac Rehab Phase I Labs Triglycerides 138 mg/dL (-199) 12/02/17 08:27 Cholesterol 209 mg/dL (200) H 12/02/17 08:27 LDL Cholesterol 135 mg/dL (0-130) H 12/02/17 08:27 HDL Cholesterol 46 mg/dL (40-) 12/02/17 08:27 Issues Affecting Care:: None Hospital Course Pain Description: Sharp, Tightness Cardiac Cath Date:: 12/03/17 Medical/Surgical History Angina:: Yes Pulmonary:: Yes COPD:: Yes Hypertension:: Yes Cancer:: Yes - CERVICAL Anxiety:: Yes
--- NOTE | 2017-12-03 11:57 | CRPH1.INST_ITS ---
General Education CAD and cardiac anatomy and function:: Not instructed Explanation of diagnoses and procedures:: Not instructed Sign/Symptoms of [place]:: Not instructed Compliance of all prescribed medications: Not instructed - INFORMATION LEFT WITH PATIENT SHE IS IN PAIN AT THIS TIME Smoking Patient Nicotine/Smoking Risk Factors Are:: Cigarettes Dyslipidemia Patient Dyslipidemia Risk Factors Are:: Total Cholesterol - 209, Triglycerides - 138, HDL - 46, LDL - 28 Recommendations Include:: Lipid profile provided Overweight/Obesity Patient Overweight/Obesity Risk Factors Are:: BMI Normal [18-25 & < 65 years old ] Diabetes Patient Diabetes Risk Factors Are:: No documented hx of diabetes Sedentary Patient Sedentary Risk Factors Are:: Lack of regular exercise
[2017-12-03 12:38] LABS: M R Staph aureus DNA By PCR Negative (Negative); Probe Check PASS; Specimen Processing Control PASS
[2017-12-03] MEDS: Losartan Potassium 25 MG Tablet PO (12:46)
[2017-12-03 14:51] LABS: Hematocrit 36.8 % (37-47); Hemoglobin 12.5 g/dl (12.0-15.0); Mean Corpuscular Hgb 32.9 pg (27.0-32.0); Mean Corpuscular Volume 96.8 fL (81-99); Mean Platelet Vol. 9.2 fl (6.2-12.0); Platelet Count 235 K/mm3 (150-450); RBC Distribution Width CV 12.7 % (11.6-14.6); RBC Distribution Width SD 42.9 fl (35.1-43.9); Scan Indicated on CBC? Y/N NO; White Blood Count 9.3 K/mm3 (4.4-11.0)
[2017-12-03 15:05] LABS: CPK Total, Creatine Kinase 55 U/L (26-192)
[2017-12-03] MEDS: Magnesium Citrate 300 ML PO (18:16)
[2017-12-03] MEDS: Ondansetron 4 MG/2 ML Vial IV (18:45)
[2017-12-03] MEDS: Atorvastatin Calcium 40 MG Tablet PO (21:42)
[2017-12-03 22:13] LABS: Hematocrit 39.8 % (37-47); Hemoglobin 13.1 g/dl (12.0-15.0); Mean Corp Hgb Conc 32.9 g/gl (32-36); Mean Corpuscular Hgb 32.1 pg (27.0-32.0); Mean Corpuscular Volume 97.5 fL (81-99); Mean Platelet Vol. 9.5 fl (6.2-12.0); Platelet Count 185 K/mm3 (150-450); RBC Distribution Width CV 12.9 % (11.6-14.6); RBC Distribution Width SD 46.1 fl (35.1-43.9); Red Blood Count 4.08 M/mm3 (4.2-5.4); Scan Indicated on CBC? Y/N NO; White Blood Count 10.1 K/mm3 (4.4-11.0)
[2017-12-03 22:29] LABS: CPK Total, Creatine Kinase 65 U/L (26-192)
[2017-12-04] VITALS (13 sets, daily range): BP systolic 95–151; BP diastolic 49–85; PULSE 57–85; RESP 11–22; TEMP 36.9; O2SAT 92–96
[2017-12-04] MEDS: 0.9% Normal Saline 500 ML IV.SOLN. IV (03:59)
[2017-12-04 05:19] LABS: Hematocrit 35.6 % (37-47); Hemoglobin 11.8 g/dl (12.0-15.0); Mean Corp Hgb Conc 33.1 g/gl (32-36); Mean Corpuscular Hgb 32.5 pg (27.0-32.0); Mean Corpuscular Volume 98.1 fL (81-99); Mean Platelet Vol. 9.2 fl (6.2-12.0); Platelet Count 211 K/mm3 (150-450); RBC Distribution Width CV 12.9 % (11.6-14.6); RBC Distribution Width SD 44.7 fl (35.1-43.9); Red Blood Count 3.63 M/mm3 (4.2-5.4); Scan Indicated on CBC? Y/N NO; White Blood Count 7.1 K/mm3 (4.4-11.0)
[2017-12-04] MEDS: Budesonide Respules 0.5 MG/2 ML AMPUL.NEB. INHALATION (05:20)
[2017-12-04] MEDS: Albuterol 2.5 MG/3 ML VIAL.NEB. INHALATION (05:20)
[2017-12-04 05:34] LABS: ALB/GLOB Ratio 0.9 RATIO (0.9-2.4); AST(SGOT) 16 U/L (15-37); Alanine Aminotransfer ALT/SGPT 15 U/L (13-56); Albumin, Serum 2.8 g/dL (3.2-5.0); Alkaline Phosphatase 109 U/L (45-117); Anion Gap 7 (5-15); BUN 7 mg/dL (7-18); BUN/Creat Ratio 14.6 RATIO (10-20); Calcium,Total 7.5 mg/dL (8.5-10.1); Chloride 110 mmol/L (98-107); Creatinine, Serum 0.48 mg/dL (0.55-1.02); EST Glomerular Filtration Rate 150 mL/min (>60); Est Glom Filt Rate - Afr Amer 181 mL/min (>60); Estimated Creatinine Clearance 125.01 ml/min; Glucose 85 mg/dL (70-110); Protein, Total 5.8 g/dL (6.4-8.2); Sodium Level 141 mmol/L (136-145)
--- NOTE | 2017-12-04 05:54 | NURSING ---
500ml NS fluid bolus given due to low BP
--- NOTE | 2017-12-04 05:55 | EKG12_ITS ---
Test Reason : AM EKG Blood Pressure : / mmHG Vent. Rate : 074 BPM Atrial Rate : 074 BPM P-R Int : 120 ms QRS Dur : 074 ms QT Int : 478 ms P-R-T Axes : 077 000 263 degrees QTc Int : 530 ms Normal sinus rhythm ST & Marked T wave abnormality, consider anterolateral ischemia Prolonged QT Abnormal ECG When compared with ECG of 03-DEC-2017 09:09, MANUAL COMPARISON REQUIRED, DATA IS UNCONFIRMED Confirmed by ADINA UMANZOR ([id number]), film editor BIRDIE JEFFREY ([id number]) on 12/06/2017 11:39:30 AM Referred By: FARIDEH Confirmed By:ADINA UMANZOR
--- NOTE | 2017-12-04 07:15 | PCM.PN.BLA ---
Progress Note Pt. is scheduled for a Cardiology office follow-up appointment with the [facility] on 01/02/2018 at 9:30 AM with Viral Garvin, Nurse Practitioner. She will follow-up long-term with Dr. Alonso.
--- NOTE | 2017-12-04 08:57 | PCM.DC ---
- Discharge Diagnoses Current Active Problems: Current Active and Chronic Problems Chest pain (Acute) Non-STEMI (non-ST elevated myocardial infarction) (Acute) You will use the following diet at home:: Cardiac Your food should be the consistency of: Regular Your liquids should be the consistency of: Regular/Thin Discharge Activity: May Shower - on sunday, - - no lifting > 5-10 lbs for the next 10 days. May resume sexual activity in: 10-14 days Call your doctor if your incision/area has: Continuous Slow Oozing, Sudden Increased Bleeding, Increased Pain/ Swelling, Increased Redness, Foul Smelling Discharge, Swelling at the incision site Call your doctor if you observe: Fever of 101 or Higher, Shortness of breath, Dizziness, Fainting spells, Swelling in the ankles, Chest pain, Increased palpitations (irregular heartbeat) Instructions: Tips for Quitting Smoking (Cardiovascular), Why Do You Smoke?, Planning to Quit Smoking, Getting Support for Quitting Smoking, Facts About Dietary Fat, Low-Fat Cooking Tips, Reading?Food Labels, Eating Heart-Healthy Foods, Coronary Stents Additional Instructions: You can remove the bandage tomorrow and take a shower. NO lifiting > 5-10 pounds for the next 10 days. No sexual intercourse for 10-14 days becuase of the puncture site in the right groin.....there is increased risk of bleeding and infection for the first 10 days. You should start a walking program.....no hills and work up to 30 minutes daily. The BEST thing you can do to prevent additional heart attacks and need for stents or bypass surgery is to stop smoking. I know it is hard but you are only 42 and alread had a heart attack and an 85% occlusion of a major artery in the heart. If you want to lead a long life with good quality of life then you must quit smoking. Allergies/Adverse Reactions: Allergies bupropion HCl [From Wellbutrin] Adverse Reaction (Verified 12/02/17 04:44) Other prednisone Adverse Reaction (Verified 12/02/17 04:44) Other Medications to take at Discharge Albuterol Inhaler [Ventolin Hfa] 2 puff INHALATION Q4H PRN PRN #1 inhaler 02/16/17 Budesonide/Formoterol 160/4.5 [Symbicort 160/4.5 Mcg Inhaler (SP)] 2 puff INHALATION PRN PRN 12/02/17 Acetaminophen [Tylenol Tablet] 650 mg PO Q4H PRN PRN tablet 12/04/17 Albuterol Aerosols [Ventolin Aerosols] 2.5 mg INHALATION Q4H PRN PRN vial.neb. 12/04/17 Aspirin E.C. [Ecotrin] 81 mg PO DAILY@0800 #30 tab 12/04/17 Atorvastatin Calcium [Lipitor] 40 mg PO QHS #30 tab 12/04/17 Carvedilol [Coreg (Beta Alise)] 3.125 mg PO BID #60 tab 12/04/17 Clopidogrel Bisulfate [Plavix] 75 mg PO DAILY #30 tab 12/04/17 Losartan Potassium [Cozaar] 25 mg PO DAILY #30 tab 12/04/17 Nicotine [Nicoderm Cq] 21 mg TRANSDERM. DAILY #28 patch 12/04/17 Nitroglycerin [Nitrostat] 0.4 mg SUBLINGUAL Q5M PRN #1 bottle 12/04/17 The following prescriptions were given: Aspirin E.C. [Ecotrin] 81 mg PO DAILY@0800 #30 tab Atorvastatin Calcium [Lipitor] 40 mg PO QHS #30 tab Clopidogrel Bisulfate [Plavix] 75 mg PO DAILY #30 tab Losartan Potassium [Cozaar] 25 mg PO DAILY #30 tab Nicotine [Nicoderm Cq] 21 mg TRANSDERM. DAILY #28 patch Nitroglycerin [Nitrostat] 0.4 mg SUBLINGUAL Q5M PRN #1 bottle PRN Reason: Chest Pain Carvedilol [Coreg (Beta Alise)] 3.125 mg PO BID #60 tab Primary Care Physician: Bennett Blandon MD [Primary Care Provider] - Please follow up with your Primary Care Physician in: 5-7 days Please Follow Up With: Cardiology/Dr. Alonso - has appt scheduled already When: 01/02/18 Proposed Discharge Date: 12/04/17
[2017-12-04] MEDS: Losartan Potassium 25 MG Tablet PO (09:49)
[2017-12-04] MEDS: Carvedilol 3.125 MG TABLET PO (09:49)
[2017-12-04] MEDS: Aspirin E.C. 81 MG Tablet PO (09:49)
[2017-12-04] MEDS: Clopidogrel Bisulfate 75 MG Tablet PO (09:49)
--- NOTE | 2017-12-04 09:59 | PCM.DC.SUM ---
Discharge Date and Diagnosis - Problem List Patient Problems: Active and Suspected Problems Ischemic cardiomyopathy (Acute) Chest pain (Acute) Non-STEMI (non-ST elevated myocardial infarction) (Acute) Date of Admission: 12/02/17 Date of Discharge: 12/04/17 - Primary Discharge Diagnosis Active and Suspected Problems Chest pain (Acute) Non-STEMI (non-ST elevated myocardial infarction) (Acute) Ischemic cardiomyopathy (Acute) S/P PCI/LIZETH to 75% lesion in the LAD Mild LV dysfunction with segmental wall motion abnormality due to STEMI/ischemic CM - Secondary Discharge Diagnosis Chronic Problems Dyslipidemia (Chronic) Chronic back pain (Chronic) Smoking addiction (Chronic) COPD (chronic obstructive pulmonary disease) (Chronic) Hx of cervical CA - S/P BRIANNA with BSO hx of intracerebral aneurysm - S/P clipping Hospital Course and Treatment Imaging Results: Clinical Impression(s) from Imaging Studies Chest X-Ray 12/02/17 05:31 IMPRESSION: Normal x-ray examination of the chest. Electronically Signed: Isaías Huddleston MD at 5:57 EST Tel , Service support , Laboratory Tests 12/02/17 12/02/17 12/02/17 04:54 04:54 04:54 WBC 8.6 RBC 4.33 Hgb 14.2 Hct 41.9 MCV 96.8 MCH 32.8 H MCHC 33.9 RDW 12.9 RDW Differential 44.8 H Plt Count 240 MPV 9.1 Immature Gran % (Auto) 0.200 Neut % (Auto) 54.5 Lymph % (Auto) 33.7 Rhea % (Auto) 9.3 Eos % (Auto) 1.5 Baso % (Auto) 0.8 Absolute Neuts (auto) 4.7 Absolute Lymphs (auto) 2.91 Total Counted Not Reportable PT INR APTT Activated Clotting Time D-Dimer Quant (PE/DVT) 0.42 Sodium 140 Potassium 4.4 Chloride 103 Carbon Dioxide 29.0 Anion Gap 8 BUN 10 Creatinine 0.72 Estim Creat Clear Calc 83.34 Est GFR (MDRD) Af Amer 113 Est GFR (MDRD) Non-Af 93 BUN/Creatinine Ratio 13.8 Glucose 108 Calcium 9.0 Magnesium Total Bilirubin AST ALT Alkaline Phosphatase Total Creatine Kinase Troponin I 0.14 H Total Protein Albumin Globulin Albumin/Globulin Ratio Triglycerides Cholesterol LDL Cholesterol VLDL Cholesterol HDL Cholesterol TSH Urine Test Urine Opiates Screen Urine Methadone Screen Ur Barbiturates Screen Ur Phencyclidine Scrn Ur Amphetamines Screen U Methamphetamin-MDMA U Benzodiazepines Scrn Urine Cocaine Screen U Cannabinoids Screen Ur Drug Screen Comment MRSA (PCR) 12/02/17 12/02/17 12/02/17 08:27 08:27 10:05 WBC RBC Hgb Hct MCV MCH MCHC RDW RDW Differential Plt Count MPV Immature Gran % (Auto) Neut % (Auto) Lymph % (Auto) Rhea % (Auto) Eos % (Auto) Baso % (Auto) Absolute Neuts (auto) Absolute Lymphs (auto) Total Counted PT 12.0 INR 0.9 APTT 31.3 Activated Clotting Time D-Dimer Quant (PE/DVT) Sodium Potassium Chloride Carbon Dioxide Anion Gap BUN Creatinine Estim Creat Clear Calc Est GFR (MDRD) Af Amer Est GFR (MDRD) Non-Af BUN/Creatinine Ratio Glucose Calcium Magnesium Total Bilirubin AST ALT Alkaline Phosphatase Total Creatine Kinase Troponin I 0.86 H* Total Protein Albumin Globulin Albumin/Globulin Ratio Triglycerides 138 Cholesterol 209 H LDL Cholesterol 135 H VLDL Cholesterol 28 HDL Cholesterol 46 TSH Urine Test Urine Opiates Screen Urine Methadone Screen Ur Barbiturates Screen Ur Phencyclidine Scrn Ur Amphetamines Screen U Methamphetamin-MDMA U Benzodiazepines Scrn Urine Cocaine Screen U Cannabinoids Screen Ur Drug Screen Comment MRSA (PCR) 12/02/17 12/02/17 12/02/17 12:55 19:10 21:00 WBC RBC Hgb Hct MCV MCH MCHC RDW RDW Differential Plt Count MPV Immature Gran % (Auto) Neut % (Auto) Lymph % (Auto) Rhea % (Auto) Eos % (Auto) Baso % (Auto) Absolute Neuts (auto) Absolute Lymphs (auto) Total Counted PT INR APTT Activated Clotting Time D-Dimer Quant (PE/DVT) Sodium Potassium Chloride Carbon Dioxide Anion Gap BUN Creatinine Estim Creat Clear Calc Est GFR (MDRD) Af Amer Est GFR (MDRD) Non-Af BUN/Creatinine Ratio Glucose Calcium Magnesium Total Bilirubin AST ALT Alkaline Phosphatase Total Creatine Kinase Troponin I 0.98 H* 0.61 H* Total Protein Albumin Globulin Albumin/Globulin Ratio Triglycerides Cholesterol LDL Cholesterol VLDL Cholesterol HDL Cholesterol TSH Urine Test Urine Opiates Screen POSITIVE H Urine Methadone Screen NEGATIVE Ur Barbiturates Screen NEGATIVE Ur Phencyclidine Scrn NEGATIVE Ur Amphetamines Screen NEGATIVE U Methamphetamin-MDMA NEGATIVE U Benzodiazepines Scrn NEGATIVE Urine Cocaine Screen NEGATIVE U Cannabinoids Screen POSITIVE H Ur Drug Screen Comment MRSA (PCR) 12/02/17 12/03/17 12/03/17 21:00 05:02 05:02 WBC 10.1 RBC 3.81 L Hgb 12.3 Hct 37.1 MCV 97.4 MCH 32.3 H MCHC 33.2 RDW 12.9 RDW Differential 44.5 H Plt Count 240 MPV 9.1 Immature Gran % (Auto) 0.100 Neut % (Auto) 58.7 Lymph % (Auto) 30.5 Rhea % (Auto) 8.3 Eos % (Auto) 2.2 Baso % (Auto) 0.2 Absolute Neuts (auto) 5.9 Absolute Lymphs (auto) 3.08 Total Counted Not Reportable PT INR APTT Activated Clotting Time D-Dimer Quant (PE/DVT) Sodium 139 Potassium 3.8 Chloride 104 Carbon Dioxide 28.0 Anion Gap 7 BUN 9 Creatinine 0.59 Estim Creat Clear Calc 101.70 Est GFR (MDRD) Af Amer 142 Est GFR (MDRD) Non-Af 117 BUN/Creatinine Ratio 15.2 Glucose 103 Calcium 8.4 L Magnesium 2.4 Total Bilirubin 0.40 AST 17 ALT 19 Alkaline Phosphatase 122 H Total Creatine Kinase Troponin I Total Protein 6.5 Albumin 3.2 Globulin 3.3 Albumin/Globulin Ratio 1.0 Triglycerides Cholesterol LDL Cholesterol VLDL Cholesterol HDL Cholesterol TSH 1.98 Urine Test Negative Urine Opiates Screen Urine Methadone Screen Ur Barbiturates Screen Ur Phencyclidine Scrn Ur Amphetamines Screen U Methamphetamin-MDMA U Benzodiazepines Scrn Urine Cocaine Screen U Cannabinoids Screen Ur Drug Screen Comment MRSA (PCR) 12/03/17 12/03/17 12/03/17 05:02 08:44 09:15 WBC RBC Hgb Hct MCV MCH MCHC RDW RDW Differential Plt Count MPV Immature Gran % (Auto) Neut % (Auto) Lymph % (Auto) Rhea % (Auto) Eos % (Auto) Baso % (Auto) Absolute Neuts (auto) Absolute Lymphs (auto) Total Counted PT 12.9 INR 1.0 APTT 35.7 Activated Clotting Time 252 H D-Dimer Quant (PE/DVT) Sodium Potassium Chloride Carbon Dioxide Anion Gap BUN Creatinine Estim Creat Clear Calc Est GFR (MDRD) Af Amer Est GFR (MDRD) Non-Af BUN/Creatinine Ratio Glucose Calcium Magnesium Total Bilirubin AST ALT Alkaline Phosphatase Total Creatine Kinase 50 Troponin I Total Protein Albumin Globulin Albumin/Globulin Ratio Triglycerides Cholesterol LDL Cholesterol VLDL Cholesterol HDL Cholesterol TSH Urine Test Urine Opiates Screen Urine Methadone Screen Ur Barbiturates Screen Ur Phencyclidine Scrn Ur Amphetamines Screen U Methamphetamin-MDMA U Benzodiazepines Scrn Urine Cocaine Screen U Cannabinoids Screen Ur Drug Screen Comment MRSA (PCR) 12/03/17 12/03/17 12/03/17 09:15 10:45 10:49 WBC 9.3 RBC 3.74 L Hgb 11.9 L Hct 36.5 L MCV 97.6 MCH 31.8 MCHC 32.6 RDW 12.9 RDW Differential 45.3 H Plt Count 223 MPV 9.3 Immature Gran % (Auto) Neut % (Auto) Lymph % (Auto) Rhea % (Auto) Eos % (Auto) Baso % (Auto) Absolute Neuts (auto) Absolute Lymphs (auto) Total Counted PT INR APTT Activated Clotting Time 169 H D-Dimer Quant (PE/DVT) Sodium Potassium Chloride Carbon Dioxide Anion Gap BUN Creatinine Estim Creat Clear Calc Est GFR (MDRD) Af Amer Est GFR (MDRD) Non-Af BUN/Creatinine Ratio Glucose Calcium Magnesium Total Bilirubin AST ALT Alkaline Phosphatase Total Creatine Kinase Troponin I Total Protein Albumin Globulin Albumin/Globulin Ratio Triglycerides Cholesterol LDL Cholesterol VLDL Cholesterol HDL Cholesterol TSH Urine Test Urine Opiates Screen Urine Methadone Screen Ur Barbiturates Screen Ur Phencyclidine Scrn Ur Amphetamines Screen U Methamphetamin-MDMA U Benzodiazepines Scrn Urine Cocaine Screen U Cannabinoids Screen Ur Drug Screen Comment MRSA (PCR) Negative 12/03/17 12/03/17 12/03/17 14:30 14:30 21:55 WBC 9.3 RBC 3.80 L Hgb 12.5 Hct 36.8 L MCV 96.8 MCH 32.9 H MCHC 34.0 RDW 12.7 RDW Differential 42.9 Plt Count 235 MPV 9.2 Immature Gran % (Auto) Neut % (Auto) Lymph % (Auto) Rhea % (Auto) Eos % (Auto) Baso % (Auto) Absolute Neuts (auto) Absolute Lymphs (auto) Total Counted PT INR APTT Activated Clotting Time D-Dimer Quant (PE/DVT) Sodium Potassium Chloride Carbon Dioxide Anion Gap BUN Creatinine Estim Creat Clear Calc Est GFR (MDRD) Af Amer Est GFR (MDRD) Non-Af BUN/Creatinine Ratio Glucose Calcium Magnesium Total Bilirubin AST ALT Alkaline Phosphatase Total Creatine Kinase 55 65 Troponin I Total Protein Albumin Globulin Albumin/Globulin Ratio Triglycerides Cholesterol LDL Cholesterol VLDL Cholesterol HDL Cholesterol TSH Urine Test Urine Opiates Screen Urine Methadone Screen Ur Barbiturates Screen Ur Phencyclidine Scrn Ur Amphetamines Screen U Methamphetamin-MDMA U Benzodiazepines Scrn Urine Cocaine Screen U Cannabinoids Screen Ur Drug Screen Comment MRSA (PCR) 12/03/17 12/04/17 12/04/17 21:55 05:10 05:10 WBC 10.1 7.1 RBC 4.08 L 3.63 L Hgb 13.1 11.8 L Hct 39.8 35.6 L MCV 97.5 98.1 MCH 32.1 H 32.5 H MCHC 32.9 33.1 RDW 12.9 12.9 RDW Differential 46.1 H 44.7 H Plt Count 185 211 MPV 9.5 9.2 Immature Gran % (Auto) Neut % (Auto) Lymph % (Auto) Rhea % (Auto) Eos % (Auto) Baso % (Auto) Absolute Neuts (auto) Absolute Lymphs (auto) Total Counted PT INR APTT Activated Clotting Time D-Dimer Quant (PE/DVT) Sodium 141 Potassium 4.0 Chloride 110 H Carbon Dioxide 24.0 Anion Gap 7 BUN 7 Creatinine 0.48 L Estim Creat Clear Calc 125.01 Est GFR (MDRD) Af Amer 181 Est GFR (MDRD) Non-Af 150 BUN/Creatinine Ratio 14.6 Glucose 85 Calcium 7.5 L Magnesium Total Bilirubin 0.40 AST 16 ALT 15 Alkaline Phosphatase 109 Total Creatine Kinase Troponin I Total Protein 5.8 L Albumin 2.8 L Globulin 3.0 Albumin/Globulin Ratio 0.9 Triglycerides Cholesterol LDL Cholesterol VLDL Cholesterol HDL Cholesterol TSH Urine Test Urine Opiates Screen Urine Methadone Screen Ur Barbiturates Screen Ur Phencyclidine Scrn Ur Amphetamines Screen U Methamphetamin-MDMA U Benzodiazepines Scrn Urine Cocaine Screen U Cannabinoids Screen Ur Drug Screen Comment MRSA (PCR) Dr. [facility] Operations: None Procedures: 2-D Echocardiogram - 50% ejection fraction, suspected impaired relaxation of the left ventricle, hypokinetic apex, Cardiac catheterization - Single vessel CAD with PCI/LIZETH to a 75% LAD lesion Summary of Care Provided: Patient is a 42-year-old female with a past medical history of hypertension, nicotine dependence, COPD, cervical cancer with BRIANNA/BSO and resection of an intracerebral aneurysm who presented to the emergency room at [facility] on 12/02/2017 complaining of chest pain that awoke her from sleep. It was located at the left chest and radiated down the left arm. Significant lab in the emergency room included a normal d-dimer at 0.42 and a troponin elevation to 0.14. Chest x-ray showed no infiltrates, pulmonary vascular congestion or pleural effusions. EKG showed no suspicious ST or T-wave changes and was unchanged from prior EKG. She was admitted to a monitored bed on PCU. Troponin peaked at 0.98. Lipid panel showed a total cholesterol of 209 with an LDL of 135 and an HDL of 46. Dr. Mat Alonso was consulted and performed cardiac catheterization on 12/03/2017. Cardiac cath revealed single-vessel disease in the LAD. She had PCI/LIZETH to a 75% occlusion in the LAD. Post cath she was transferred to the intensive care unit. Telemetry post-cath showed no ventricular ectopy. She was in normal sinus rhythm for the entire monitoring period post cath. Smoking cessation counselling was given by multiple individuals during her hospital stay and she was given a RX for a Nicotine patch at [facility]. She was also given the contact number for the smoking cessation program at [facility]. She was seen by cardiac rehab during her stay and also by the PA for [facility]. An appointment was arranged for January 02 prior to discharge. On the day of DC the vital signs were temp 98.4, heart rate 64-85, blood pressure 108/64, respiratory rate 11 and she was 96% saturated on room air. She does desaturate at night when sleeping and has never had a sleep study. Telemetry showed normal sinus rhythm with no ectopy. EKG showed diffuse deep T-wave inversions in V3 through V6 and in the inferior leads. This has been consistent since 12/03/2017. Auscultation of her lungs revealed diminished breath sounds but they were clear to auscultation. The heart had a regular rate and rhythm with no murmur, no gallop and no rub. She had no calf tenderness and no peripheral edema. The right groin site was dry with no swelling, erythema or extensive bruising. She was seen by Dr. Alonso on the morning of 12/04/2017 and okayed for discharge. She will follow-up with Dr. Bennett Blandon in [address] Alonso on January 02. At the time of discharge she was on aspirin, Plavix, atorvastatin, Coreg and Cozaar. She was also given a prescription for sublingual nitroglycerin and instructed on how to use it. She will need a liver profile, CPK and lipid profile in 4-6 weeks. This note was generated with [employer] dictation software. It may contain incorrect words, spelling, and punctuation that were not noted in checking the note before signing. Discharge Activity: May Shower - on sunday, - - no lifting > 5-10 lbs for the next 10 days. May resume sexual activity in: 10-14 days Call your doctor if your incision/area has: Continuous Slow Oozing, Sudden Increased Bleeding, Increased Pain/ Swelling, Increased Redness, Foul Smelling Discharge, Swelling at the incision site Call your doctor if you observe: Fever of 101 or Higher, Shortness of breath, Dizziness, Fainting spells, Swelling in the ankles, Chest pain, Increased palpitations (irregular heartbeat) Home Medications: Medications to take at Discharge Albuterol Inhaler [Ventolin Hfa] 2 puff INHALATION Q4H PRN PRN #1 inhaler 02/16/17 Budesonide/Formoterol 160/4.5 [Symbicort 160/4.5 Mcg Inhaler (SP)] 2 puff INHALATION PRN PRN 12/02/17 Acetaminophen [Tylenol Tablet] 650 mg PO Q4H PRN PRN tablet 12/04/17 Albuterol Aerosols [Ventolin Aerosols] 2.5 mg INHALATION Q4H PRN PRN vial.neb. 12/04/17 Aspirin E.C. [Ecotrin] 81 mg PO DAILY@0800 #30 tab 12/04/17 Atorvastatin Calcium [Lipitor] 40 mg PO QHS #30 tab 12/04/17 Carvedilol [Coreg (Beta Alise)] 3.125 mg PO BID #60 tab 12/04/17 Clopidogrel Bisulfate [Plavix] 75 mg PO DAILY #30 tab 12/04/17 Losartan Potassium [Cozaar] 25 mg PO DAILY #30 tab 12/04/17 Nicotine [Nicoderm Cq] 21 mg TRANSDERM. DAILY #28 patch 12/04/17 Nitroglycerin [Nitrostat] 0.4 mg SUBLINGUAL Q5M PRN #1 bottle 12/04/17 Following Prescrptions Were Given to Patient: Aspirin E.C. [Ecotrin] 81 mg PO DAILY@0800 #30 tab Atorvastatin Calcium [Lipitor] 40 mg PO QHS #30 tab Clopidogrel Bisulfate [Plavix] 75 mg PO DAILY #30 tab Losartan Potassium [Cozaar] 25 mg PO DAILY #30 tab Nicotine [Nicoderm Cq] 21 mg TRANSDERM. DAILY #28 patch Nitroglycerin [Nitrostat] 0.4 mg SUBLINGUAL Q5M PRN #1 bottle PRN Reason: Chest Pain Carvedilol [Coreg (Beta Alise)] 3.125 mg PO BID #60 tab Primary Care Physician: Bennett Blandon MD [Primary Care Provider] - Please follow up with your Primary Care Physician in: 5-7 days Please Follow Up With: Cardiology/Dr. Alonso - has appt scheduled already When: 01/02/18 Patient Instructions: Coronary Stents, Tips for Quitting Smoking (Cardiovascular), Facts About Dietary Fat, Low-Fat Cooking Tips, Reading?Food Labels, Why Do You Smoke?, Planning to Quit Smoking, Getting Support for Quitting Smoking, Eating Heart-Healthy Foods Disposition: Home Minutes spent on discharge:: 40 Patient Condition:: Good Meaningful Use Info Meaningful Use Diagnoses (Choose all that apply): AMI - AMI Aspirin given w/in 24hrs of arrival?: Yes ASA at discharge?: Yes Statins at discharge?: Yes Blair/ARB at discharge?: Yes Beta Alise at discharge?: Yes Done w/ Acute CT measure.: Yes Code Visit Inpatient E&M: 58572 Disch Hosp
--- NOTE | 2017-12-04 10:18 | DS.PCM_ITS ---
Discharge Date and Diagnosis - Problem List Patient Problems: Active and Suspected Problems Ischemic cardiomyopathy (Acute) Chest pain (Acute) Non-STEMI (non-ST elevated myocardial infarction) (Acute) Date of Admission: 12/02/17 Date of Discharge: 12/04/17 - Primary Discharge Diagnosis Active and Suspected Problems Chest pain (Acute) Non-STEMI (non-ST elevated myocardial infarction) (Acute) Ischemic cardiomyopathy (Acute) S/P PCI/LIZETH to 75% lesion in the LAD Mild LV dysfunction with segmental wall motion abnormality due to STEMI/ ischemic CM - Secondary Discharge Diagnosis Chronic Problems Dyslipidemia (Chronic) Chronic back pain (Chronic) Smoking addiction (Chronic) COPD (chronic obstructive pulmonary disease) (Chronic) Hx of cervical CA - S/P BRIANNA with BSO hx of intracerebral aneurysm - S/P clipping Hospital Course and Treatment Imaging Results: Clinical Impression(s) from Imaging Studies Chest X-Ray 12/02/17 05:31 IMPRESSION: Normal x-ray examination of the chest. Electronically Signed: Isaías Huddleston MD at 5:57 EST Tel , Service support , Laboratory Tests 12/02/17 12/02/17 12/02/17 04:54 04:54 04:54 WBC 8.6 RBC 4.33 Hgb 14.2 Hct 41.9 MCV 96.8 MCH 32.8 H MCHC 33.9 RDW 12.9 RDW Differential 44.8 H Plt Count 240 MPV 9.1 Immature Gran % (Auto) 0.200 Neut % (Auto) 54.5 Lymph % (Auto) 33.7 [place] % (Auto) 9.3 Eos % (Auto) 1.5 Baso % (Auto) 0.8 Absolute Neuts (auto) 4.7 Absolute Lymphs (auto) 2.91 Total Counted Not Reportable PT INR APTT Activated Clotting Time D-Dimer Quant (PE/DVT) 0.42 Sodium 140 Potassium 4.4 Chloride 103 Carbon Dioxide 29.0 Anion Gap 8 BUN 10 Creatinine 0.72 Estim Creat Clear Calc 83.34 Est GFR (MDRD) Af Amer 113 Est GFR (MDRD) Non-Af 93 BUN/Creatinine Ratio 13.8 Glucose 108 Calcium 9.0 Magnesium Total Bilirubin AST ALT Alkaline Phosphatase Total Creatine Kinase Troponin I 0.14 H Total Protein Albumin Globulin Albumin/Globulin Ratio Triglycerides Cholesterol LDL Cholesterol VLDL Cholesterol HDL Cholesterol TSH Urine Test Urine Opiates Screen Urine Methadone Screen Ur Barbiturates Screen Ur Phencyclidine Scrn Ur Amphetamines Screen U Methamphetamin-MDMA U Benzodiazepines Scrn Urine Cocaine Screen U Cannabinoids Screen Ur Drug Screen Comment MRSA (PCR) 12/02/17 12/02/17 12/02/17 08:27 08:27 10:05 WBC RBC Hgb Hct MCV MCH MCHC RDW RDW Differential Plt Count MPV Immature Gran % (Auto) Neut % (Auto) Lymph % (Auto) [place] % (Auto) Eos % (Auto) Baso % (Auto) Absolute Neuts (auto) Absolute Lymphs (auto) Total Counted PT 12.0 INR 0.9 APTT 31.3 Activated Clotting Time D-Dimer Quant (PE/DVT) Sodium Potassium Chloride Carbon Dioxide Anion Gap BUN Creatinine Estim Creat Clear Calc Est GFR (MDRD) Af Amer Est GFR (MDRD) Non-Af BUN/Creatinine Ratio Glucose Calcium Magnesium Total Bilirubin AST ALT Alkaline Phosphatase Total Creatine Kinase Troponin I 0.86 H* Total Protein Albumin Globulin Albumin/Globulin Ratio Triglycerides 138 Cholesterol 209 H LDL Cholesterol 135 H VLDL Cholesterol 28 HDL Cholesterol 46 TSH Urine Test Urine Opiates Screen Urine Methadone Screen Ur Barbiturates Screen Ur Phencyclidine Scrn Ur Amphetamines Screen U Methamphetamin-MDMA U Benzodiazepines Scrn Urine Cocaine Screen U Cannabinoids Screen Ur Drug Screen Comment MRSA (PCR) 12/02/17 12/02/17 12/02/17 12:55 19:10 21:00 WBC RBC Hgb Hct MCV MCH MCHC RDW RDW Differential Plt Count MPV Immature Gran % (Auto) Neut % (Auto) Lymph % (Auto) [place] % (Auto) Eos % (Auto) Baso % (Auto) Absolute Neuts (auto) Absolute Lymphs (auto) Total Counted PT INR APTT Activated Clotting Time D-Dimer Quant (PE/DVT) Sodium Potassium Chloride Carbon Dioxide Anion Gap BUN Creatinine Estim Creat Clear Calc Est GFR (MDRD) Af Amer Est GFR (MDRD) Non-Af BUN/Creatinine Ratio Glucose Calcium Magnesium Total Bilirubin AST ALT Alkaline Phosphatase Total Creatine Kinase Troponin I 0.98 H* 0.61 H* Total Protein Albumin Globulin Albumin/Globulin Ratio Triglycerides Cholesterol LDL Cholesterol VLDL Cholesterol HDL Cholesterol TSH Urine Test Urine Opiates Screen POSITIVE H Urine Methadone Screen NEGATIVE Ur Barbiturates Screen NEGATIVE Ur Phencyclidine Scrn NEGATIVE Ur Amphetamines Screen NEGATIVE U Methamphetamin-MDMA NEGATIVE U Benzodiazepines Scrn NEGATIVE Urine Cocaine Screen NEGATIVE U Cannabinoids Screen POSITIVE H Ur Drug Screen Comment MRSA (PCR) 12/02/17 12/03/17 12/03/17 21:00 05:02 05:02 WBC 10.1 RBC 3.81 L Hgb 12.3 Hct 37.1 MCV 97.4 MCH 32.3 H MCHC 33.2 RDW 12.9 RDW Differential 44.5 H Plt Count 240 MPV 9.1 Immature Gran % (Auto) 0.100 Neut % (Auto) 58.7 Lymph % (Auto) 30.5 [place] % (Auto) 8.3 Eos % (Auto) 2.2 Baso % (Auto) 0.2 Absolute Neuts (auto) 5.9 Absolute Lymphs (auto) 3.08 Total Counted Not Reportable PT INR APTT Activated Clotting Time D-Dimer Quant (PE/DVT) Sodium 139 Potassium 3.8 Chloride 104 Carbon Dioxide 28.0 Anion Gap 7 BUN 9 Creatinine 0.59 Estim Creat Clear Calc 101.70 Est GFR (MDRD) Af Amer 142 Est GFR (MDRD) Non-Af 117 BUN/Creatinine Ratio 15.2 Glucose 103 Calcium 8.4 L Magnesium 2.4 Total Bilirubin 0.40 AST 17 ALT 19 Alkaline Phosphatase 122 H Total Creatine Kinase Troponin I Total Protein 6.5 Albumin 3.2 Globulin 3.3 Albumin/Globulin Ratio 1.0 Triglycerides Cholesterol LDL Cholesterol VLDL Cholesterol HDL Cholesterol TSH 1.98 Urine Test Negative Urine Opiates Screen Urine Methadone Screen Ur Barbiturates Screen Ur Phencyclidine Scrn Ur Amphetamines Screen U Methamphetamin-MDMA U Benzodiazepines Scrn Urine Cocaine Screen U Cannabinoids Screen Ur Drug Screen Comment MRSA (PCR) 12/03/17 12/03/17 12/03/17 05:02 08:44 09:15 WBC RBC Hgb Hct MCV MCH MCHC RDW RDW Differential Plt Count MPV Immature Gran % (Auto) Neut % (Auto) Lymph % (Auto) [place] % (Auto) Eos % (Auto) Baso % (Auto) Absolute Neuts (auto) Absolute Lymphs (auto) Total Counted PT 12.9 INR 1.0 APTT 35.7 Activated Clotting Time 252 H D-Dimer Quant (PE/DVT) Sodium Potassium Chloride Carbon Dioxide Anion Gap BUN Creatinine Estim Creat Clear Calc Est GFR (MDRD) Af Amer Est GFR (MDRD) Non-Af BUN/Creatinine Ratio Glucose Calcium Magnesium Total Bilirubin AST ALT Alkaline Phosphatase Total Creatine Kinase 50 Troponin I Total Protein Albumin Globulin Albumin/Globulin Ratio Triglycerides Cholesterol LDL Cholesterol VLDL Cholesterol HDL Cholesterol TSH Urine Test Urine Opiates Screen Urine Methadone Screen Ur Barbiturates Screen Ur Phencyclidine Scrn Ur Amphetamines Screen U Methamphetamin-MDMA U Benzodiazepines Scrn Urine Cocaine Screen U Cannabinoids Screen Ur Drug Screen Comment MRSA (PCR) 12/03/17 12/03/17 12/03/17 09:15 10:45 10:49 WBC 9.3 RBC 3.74 L Hgb 11.9 L Hct 36.5 L MCV 97.6 MCH 31.8 MCHC 32.6 RDW 12.9 RDW Differential 45.3 H Plt Count 223 MPV 9.3 Immature Gran % (Auto) Neut % (Auto) Lymph % (Auto) [place] % (Auto) Eos % (Auto) Baso % (Auto) Absolute Neuts (auto) Absolute Lymphs (auto) Total Counted PT INR APTT Activated Clotting Time 169 H D-Dimer Quant (PE/DVT) Sodium Potassium Chloride Carbon Dioxide Anion Gap BUN Creatinine Estim Creat Clear Calc Est GFR (MDRD) Af Amer Est GFR (MDRD) Non-Af BUN/Creatinine Ratio Glucose Calcium Magnesium Total Bilirubin AST ALT Alkaline Phosphatase Total Creatine Kinase Troponin I Total Protein Albumin Globulin Albumin/Globulin Ratio Triglycerides Cholesterol LDL Cholesterol VLDL Cholesterol HDL Cholesterol TSH Urine Test Urine Opiates Screen Urine Methadone Screen Ur Barbiturates Screen Ur Phencyclidine Scrn Ur Amphetamines Screen U Methamphetamin-MDMA U Benzodiazepines Scrn Urine Cocaine Screen U Cannabinoids Screen Ur Drug Screen Comment MRSA (PCR) Negative 12/03/17 12/03/17 12/03/17 14:30 14:30 21:55 WBC 9.3 RBC 3.80 L Hgb 12.5 Hct 36.8 L MCV 96.8 MCH 32.9 H MCHC 34.0 RDW 12.7 RDW Differential 42.9 Plt Count 235 MPV 9.2 Immature Gran % (Auto) Neut % (Auto) Lymph % (Auto) [place] % (Auto) Eos % (Auto) Baso % (Auto) Absolute Neuts (auto) Absolute Lymphs (auto) Total Counted PT INR APTT Activated Clotting Time D-Dimer Quant (PE/DVT) Sodium Potassium Chloride Carbon Dioxide Anion Gap BUN Creatinine Estim Creat Clear Calc Est GFR (MDRD) Af Amer Est GFR (MDRD) Non-Af BUN/Creatinine Ratio Glucose Calcium Magnesium Total Bilirubin AST ALT Alkaline Phosphatase Total Creatine Kinase 55 65 Troponin I Total Protein Albumin Globulin Albumin/Globulin Ratio Triglycerides Cholesterol LDL Cholesterol VLDL Cholesterol HDL Cholesterol TSH Urine Test Urine Opiates Screen Urine Methadone Screen Ur Barbiturates Screen Ur Phencyclidine Scrn Ur Amphetamines Screen U Methamphetamin-MDMA U Benzodiazepines Scrn Urine Cocaine Screen U Cannabinoids Screen Ur Drug Screen Comment MRSA (PCR) 12/03/17 12/04/17 12/04/17 21:55 05:10 05:10 WBC 10.1 7.1 RBC 4.08 L 3.63 L Hgb 13.1 11.8 L Hct 39.8 35.6 L MCV 97.5 98.1 MCH 32.1 H 32.5 H MCHC 32.9 33.1 RDW 12.9 12.9 RDW Differential 46.1 H 44.7 H Plt Count 185 211 MPV 9.5 9.2 Immature Gran % (Auto) Neut % (Auto) Lymph % (Auto) [place] % (Auto) Eos % (Auto) Baso % (Auto) Absolute Neuts (auto) Absolute Lymphs (auto) Total Counted PT INR APTT Activated Clotting Time D-Dimer Quant (PE/DVT) Sodium 141 Potassium 4.0 Chloride 110 H Carbon Dioxide 24.0 Anion Gap 7 BUN 7 Creatinine 0.48 L Estim Creat Clear Calc 125.01 Est GFR (MDRD) Af Amer 181 Est GFR (MDRD) Non-Af 150 BUN/Creatinine Ratio 14.6 Glucose 85 Calcium 7.5 L Magnesium Total Bilirubin 0.40 AST 16 ALT 15 Alkaline Phosphatase 109 Total Creatine Kinase Troponin I Total Protein 5.8 L Albumin 2.8 L Globulin 3.0 Albumin/Globulin Ratio 0.9 Triglycerides Cholesterol LDL Cholesterol VLDL Cholesterol HDL Cholesterol TSH Urine Test Urine Opiates Screen Urine Methadone Screen Ur Barbiturates Screen Ur Phencyclidine Scrn Ur Amphetamines Screen U Methamphetamin-MDMA U Benzodiazepines Scrn Urine Cocaine Screen U Cannabinoids Screen Ur Drug Screen Comment MRSA (PCR) Dr. [facility] Operations: None Procedures: 2-D Echocardiogram - 50% ejection fraction, suspected impaired relaxation of the left ventricle, hypokinetic apex, Cardiac catheterization - Single vessel CAD with PCI/LIZETH to a 75% LAD lesion Summary of Care Provided: Patient is a 42-year-old female with a past medical history of hypertension , nicotine dependence, COPD, cervical cancer with BRIANNA/BSO and resection of an intracerebral aneurysm who presented to the emergency room at [facility] on 12/02/2017 complaining of chest pain that awoke her from sleep. It was located at the left chest and radiated down the left arm. Significant lab in the emergency room included a normal d-dimer at 0.42 and a troponin elevation to 0.14. Chest x-ray showed no infiltrates, pulmonary vascular congestion or pleural effusions. EKG showed no suspicious ST or T-wave changes and was unchanged from prior EKG. She was admitted to a monitored bed on PCU. Troponin peaked at 0.98. Lipid panel showed a total cholesterol of 209 with an LDL of 135 and an HDL of 46. Dr. Mat Alonso was consulted and performed cardiac catheterization on 12/03/2017. Cardiac cath revealed single-vessel disease in the LAD. She had PCI/LIZETH to a 75% occlusion in the LAD. Post cath she was transferred to the intensive care unit. Telemetry post-cath showed no ventricular ectopy. She was in normal sinus rhythm for the entire monitoring period post cath. Smoking cessation counselling was given by multiple individuals during her hospital stay and she was given a RX for a Nicotine patch at [place]. She was also given the contact number for the smoking cessation program at [facility]. She was seen by cardiac rehab during her stay and also by the PA for [facility]. An appointment was arranged for January 02 prior to discharge. On the day of DC the vital signs were temp 98.4, heart rate 64-85, blood pressure 108/64, respiratory rate 11 and she was 96% saturated on room air. She does desaturate at night when sleeping and has never had a sleep study. Telemetry showed normal sinus rhythm with no ectopy. EKG showed diffuse deep T- wave inversions in V3 through V6 and in the inferior leads. This has been consistent since 12/03/2017. Auscultation of her lungs revealed diminished breath sounds but they were clear to auscultation. The heart had a regular rate and rhythm with no murmur, no gallop and no rub. She had no calf tenderness and no peripheral edema. The right groin site was dry with no swelling, erythema or extensive bruising. She was seen by Dr. Alonso on the morning of 12/04/2017 and okayed for discharge. She will follow-up with Dr. Bennett Blandon in [address] Alonso on January 02. At the time of discharge she was on aspirin, Plavix, atorvastatin, Coreg and Cozaar. She was also given a prescription for sublingual nitroglycerin and instructed on how to use it. She will need a liver profile, CPK and lipid profile in 4-6 weeks. This note was generated with [employer] dictation software. It may contain incorrect words, spelling, and punctuation that were not noted in checking the note before signing. Discharge Activity: May Shower - on sunday, - - no lifting > 5-10 lbs for the next 10 days. May resume sexual activity in: 10-14 days Call your doctor if your incision/area has: Continuous Slow Oozing, Sudden Increased Bleeding, Increased Pain/ Swelling, Increased Redness, Foul Smelling Discharge, Swelling at the incision site Call your doctor if you observe: Fever of 101 or Higher, Shortness of breath, Dizziness, Fainting spells, Swelling in the ankles, Chest pain, Increased palpitations (irregular heartbeat) Home Medications: Medications to take at Discharge Albuterol Inhaler [Ventolin Hfa] 2 puff INHALATION Q4H PRN PRN #1 inhaler Budesonide/Formoterol 160/4.5 [Symbicort 160/4.5 Mcg Inhaler (SP)] 2 puff INHALATION PRN PRN 12/02/17 Acetaminophen [Tylenol Tablet] 650 mg PO Q4H PRN PRN tablet 12/04/17 Albuterol Aerosols [Ventolin Aerosols] 2.5 mg INHALATION Q4H PRN PRN vial.neb. 12/04/17 Aspirin E.C. [Ecotrin] 81 mg PO DAILY@0800 #30 tab 12/04/17 Atorvastatin Calcium [Lipitor] 40 mg PO QHS #30 tab 12/04/17 Carvedilol [Coreg (Beta Alise)] 3.125 mg PO BID #60 tab 12/04/17 Clopidogrel Bisulfate [Plavix] 75 mg PO DAILY #30 tab 12/04/17 Losartan Potassium [Cozaar] 25 mg PO DAILY #30 tab 12/04/17 Nicotine [Nicoderm Cq] 21 mg TRANSDERM. DAILY #28 patch 12/04/17 Nitroglycerin [Nitrostat] 0.4 mg SUBLINGUAL Q5M PRN #1 bottle 12/04/17 Following Prescrptions Were Given to Patient: Aspirin E.C. [Ecotrin] 81 mg PO DAILY@0800 #30 tab Atorvastatin Calcium [Lipitor] 40 mg PO QHS #30 tab Clopidogrel Bisulfate [Plavix] 75 mg PO DAILY #30 tab Losartan Potassium [Cozaar] 25 mg PO DAILY #30 tab Nicotine [Nicoderm Cq] 21 mg TRANSDERM. DAILY #28 patch Nitroglycerin [Nitrostat] 0.4 mg SUBLINGUAL Q5M PRN #1 bottle PRN Reason: Chest Pain Carvedilol [Coreg (Beta Alise)] 3.125 mg PO BID #60 tab Primary Care Physician: Bennett Blandon MD [Primary Care Provider] - Please follow up with your Primary Care Physician in: 5-7 days Please Follow Up With: Cardiology/Dr. Alonso - has appt scheduled already When: 01/02/18 Patient Instructions: Coronary Stents, Tips for Quitting Smoking ( Cardiovascular), Facts About Dietary Fat, Low-Fat Cooking Tips, Reading?Food Labels, Why Do You Smoke?, Planning to Quit Smoking, Getting Support for Quitting Smoking, Eating Heart-Healthy Foods Disposition: Home Minutes spent on discharge:: 40 Patient Condition:: Good Meaningful Use Info Meaningful Use Diagnoses (Choose all that apply): AMI - AMI Aspirin given w/in 24hrs of arrival?: Yes ASA at discharge?: Yes Statins at discharge?: Yes Blair/ARB at discharge?: Yes Beta Alise at discharge?: Yes Done w/ Acute VA measure.: Yes Code Visit Inpatient E&M: 60373 Disch Hosp
--- NOTE | 2017-12-04 10:25 | PCM.PN.CARD ---
Subjectve: Patient doing very well, feels much better. Right groin is clean/dry/intact, no thrills, bruits or hematoma. Hemoglobin and creatinine within nominal limits. Telemetry negative. EKG showed normal sinus rhythm with resolving anterior T-wave inversion. Objective: Vital Signs Temp Pulse Resp BP Pulse Ox 98.4 F 70 22 H 127/62 H 92 12/04/17 00:21 12/04/17 09:00 12/04/17 09:00 12/04/17 09:00 12/04/17 09:00 Oxygen Flow Rate 2 Oxygen Delivery Method Room Air Weight: 136 lb 10.986 oz Intake and Output for Last 24 Hours 12/02/17 12/03/17 12/04/17 23:59 23:59 23:59 Intake Total 731 / 731 2427 / 2427 555 / 555 Output Total 400 / 400 Balance 731 / 731 2026 / 2026 555 / 555 General: Awake, Alert, Oriented x 3 HEENT: PERRL, EOMI, Sclera Non Icteric Neck: Supple, Good ROM, No Lymph Node Enlargement Lungs: Clear to auscultation Cardiovascular: Regular Rhythm, Normal S1, Normal S2, No Murmurs, No Rubs, No Gallops Vascular: No Carotid Bruits, Normal Femoral Pulses, Normal Radial Pulses, Normal Dorsalis Pedal Pulse, Normal Posterior Tibial Pulses Abdomen: Bowel Sounds Present, Soft, Non Tender, No HSM, No Organomegaly Extremities: No Cyanosis, No Clubbing, No edema Neurological: No Focal Motor or Sensory Deficit 12/03/17 14:30: WBC 9.3, RBC 3.80 L, Hgb 12.5, Hct 36.8 L, MCV 96.8, MCH 32.9 H, MCHC 34.0, RDW 12.7, RDW Differential 42.9, Plt Count 235, MPV 9.2 12/03/17 21:55: WBC 10.1, RBC 4.08 L, Hgb 13.1, Hct 39.8, MCV 97.5, MCH 32.1 H, MCHC 32.9, RDW 12.9, RDW Differential 46.1 H, Plt Count 185, MPV 9.5 12/04/17 05:10: WBC 7.1, RBC 3.63 L, Hgb 11.8 L, Hct 35.6 L, MCV 98.1, MCH 32.5 H, MCHC 33.1, RDW 12.9, RDW Differential 44.7 H, Plt Count 211, MPV 9.2 12/04/17 05:10: Sodium 141, Potassium 4.0, Chloride 110 H, Carbon Dioxide 24.0, Anion Gap 7, BUN 7, Creatinine 0.48 L, Est GFR (MDRD) Af Amer 181, Est GFR (MDRD) Non-Af 150, BUN/Creatinine Ratio 14.6, Glucose 85, Calcium 7.5 L, Total Bilirubin 0.40 Rhythm: EKG: ECHO: Stress Test: Cardiac Cath: PCI: CT Surgery: Holter monitor: EPS: PPM: CXR: Chest CT Scan: Assessment/Plan #1. Unstable angina: The patient presents with acute onset substernal chest pain waking her up from a sound sleep, waxing and waning chest pain since that time, abnormal initial troponin 0 0.14 increase and is 0.86. Patient underwent diagnostic coronary angiogram yesterday which demonstrated a critical lesion in her mid LAD and nonobstructive disease in her left circumflex and RCA. Patient underwent successful drug-eluting stent with a 2.5X 16 drug-eluting Promus stent. Telemetry is negative. Right groin is clean/dry/intact. The patient may continue baby aspirin and Plavix going forward and may be discharged home today. Patient will be arranged for cardiac rehab in the next few weeks once her groin heals. 2. Hyperlipidemia: Her LDL cholesterol is 135 and HDL is 46. I am in agreement with high-dose Lipitor therapy. We will repeat lipid profile in 6 weeks time. 3. Tobacco cessation: I had a long and thorough discussion with the patient regarding tobacco cessation and recommended cessation of all tobacco products as well as THC products. 4. Thank you very much for the opportunity to precipitate in the cardiac care of your patient. Patient will follow-up with me going forward. Patient may be discharged home. Code Visit Inpatient E&M: 00717 Subs Hosp L2
--- NOTE | 2017-12-04 10:28 | PN.CARD_ITS ---
Subjectve: Patient doing very well, feels much better. Right groin is clean/dry/intact, no thrills, bruits or hematoma. Hemoglobin and creatinine within nominal limits. Telemetry negative. EKG showed normal sinus rhythm with resolving anterior T-wave inversion. Objective: Vital Signs Temp Pulse Resp BP Pulse Ox 98.4 F 70 22 H 127/62 H 92 12/04/17 00:21 12/04/17 09:00 12/04/17 09:00 12/04/17 09:00 12/04/17 09:00 Oxygen Flow Rate 2 Oxygen Delivery Method Room Air Weight: 136 lb 10.986 oz Intake and Output for Last 24 Hours 12/02/17 12/03/17 12/04/17 23:59 23:59 23:59 Intake Total 731 / 731 2427 / 2427 555 / 555 Output Total 400 / 400 Balance 731 / 731 2026 / 2026 555 / 555 General: Awake, Alert, Oriented x 3 HEENT: PERRL, EOMI, Sclera Non Icteric Neck: Supple, Good ROM, No Lymph Node Enlargement Lungs: Clear to auscultation Cardiovascular: Regular Rhythm, Normal S1, Normal S2, No Murmurs, No Rubs, No Gallops Vascular: No Carotid Bruits, Normal Femoral Pulses, Normal Radial Pulses, Normal Dorsalis Pedal Pulse, Normal Posterior Tibial Pulses Abdomen: Bowel Sounds Present, Soft, Non Tender, No HSM, No Organomegaly Extremities: No Cyanosis, No Clubbing, No edema Neurological: No Focal Motor or Sensory Deficit 12/03/17 14:30: WBC 9.3, RBC 3.80 L, Hgb 12.5, Hct 36.8 L, MCV 96.8, MCH 32.9 H , MCHC 34.0, RDW 12.7, RDW Differential 42.9, Plt Count 235, MPV 9.2 12/03/17 21:55: WBC 10.1, RBC 4.08 L, Hgb 13.1, Hct 39.8, MCV 97.5, MCH 32.1 H, MCHC 32.9, RDW 12.9, RDW Differential 46.1 H, Plt Count 185, MPV 9.5 12/04/17 05:10: WBC 7.1, RBC 3.63 L, Hgb 11.8 L, Hct 35.6 L, MCV 98.1, MCH 32.5 H, MCHC 33.1, RDW 12.9, RDW Differential 44.7 H, Plt Count 211, MPV 9.2 12/04/17 05:10: Sodium 141, Potassium 4.0, Chloride 110 H, Carbon Dioxide 24.0, Anion Gap 7, BUN 7, Creatinine 0.48 L, Est GFR (MDRD) Af Amer 181, Est GFR (MDRD ) Non-Af 150, BUN/Creatinine Ratio 14.6, Glucose 85, Calcium 7.5 L, Total Bilirubin 0.40 Rhythm: EKG: ECHO: Stress Test: Cardiac Cath: PCI: CT Surgery: Holter monitor: EPS: PPM: CXR: Chest CT Scan: Assessment/Plan #1. Unstable angina: The patient presents with acute onset substernal chest pain waking her up from a sound sleep, waxing and waning chest pain since that time, abnormal initial troponin 0 0.14 increase and is 0.86. Patient underwent diagnostic coronary angiogram yesterday which demonstrated a critical lesion in her mid LAD and nonobstructive disease in her left circumflex and RCA. Patient underwent successful drug-eluting stent with a 2.5X 16 drug-eluting Promus stent. Telemetry is negative. Right groin is clean /dry/intact. The patient may continue baby aspirin and Plavix going forward and may be discharged home today. Patient will be arranged for cardiac rehab in the next few weeks once her groin heals. 2. Hyperlipidemia: Her LDL cholesterol is 135 and HDL is 46. I am in agreement with high-dose Lipitor therapy. We will repeat lipid profile in 6 weeks time. 3. Tobacco cessation: I had a long and thorough discussion with the patient regarding tobacco cessation and recommended cessation of all tobacco products as well as THC products. 4. Thank you very much for the opportunity to precipitate in the cardiac care of your patient. Patient will follow-up with me going forward. Patient may be discharged home. Code Visit Inpatient E&M: 85453 Subs Hosp L2
== END 2017-12-04 10:19 | disposition home or self-care (01) | DRG 116 ==
LOC: ED 05:52 → PCU 06:34 → ICU 12-03 09:57 → PCU 12-04 07:43
PROVIDERS: Internal Medicine Cardiovascular Disease; Admitting Provider Internal Medicine; Emergency Provider Emergency Medicine; Family Provider Family Medicine; PCP Family Medicine; Visit Provider Internal Medicine
DX: I21.4 Non-ST elevation (NSTEMI) myocardial infarction (principal); E78.5 Hyperlipidemia, unspecified; J44.9 Chronic obstructive pulmonary disease, unspecified; F17.210 Nicotine dependence, cigarettes, uncomplicated; I10 Essential (primary) hypertension; Z90.710 Acquired absence of both cervix and uterus; Z90.722 Acquired absence of ovaries, bilateral; Z85.41 Personal history of malignant neoplasm of cervix uteri; I25.110 Atherosclerotic heart disease of native coronary artery with unstable angina pectoris; I25.5 Ischemic cardiomyopathy
CPT/HCPCS: 36415; 71046; 80048; 80053; 80061; 80307; 81025; 82550; 83735; 84443; 84484; 85025; 85027; 85347; 85379; 85610; 85730; 87641; 92928; 93005; 93306; 93458; 94640; 97802; 99152; 99153; 99285; 99406; J7030; J7040; Q9957; A4216; C1725; C1769; C1874; C1887; C1894; C8929; C9600; J2405; Q9967

== ENCOUNTER → 2017-12-13 11:12 | Outpatient (CLI) | payer MEDICAID, SELFPAY ==
[2017-12-03 11:54] VITALS: BMI 23.6
--- NOTE | 2017-12-13 11:14 | ADUL_ITS ---
Reason For Study: injury to blood vessel Right Velocities Left Velocities Common Femoral Artery, mid = 130 cm./sec. Common Femoral Artery, mid = 128 cm./sec. SENIOR QUALITY TECHNICIAN measures .548 x .598 cm. SENIOR QUALITY TECHNICIAN measures .485 x .465 cm. CFV is compressible with normal venous flow CFV is compressible with normal venous flow patterns. patterns. No pseudoaneurysm or fistula identified. Procedure The exam was diagnostic. Exam performed in department. Prelim to Melissa DECKER. Interpretation Summary Common femoral arteries appear bilaterally patent, demonstrating pulsatile color flow bilaterally. No evidence for pseduoaneurysm of fistula on the right. Normal bilateral venous flow in the common femoral veins. Ordering Physician: Mat Alonso Performed By: Cuate Thomas RVT
== END ==
PROVIDERS: Family Provider Family Medicine; PCP Family Medicine; Visit Provider Internal Medicine Cardiovascular Disease
DX: T14.8XXA Other injury of unspecified body region, initial encounter (principal); Z98.890 Other specified postprocedural states
CPT/HCPCS: 93926

== ENCOUNTER → 2017-12-28 12:51 | Outpatient (CLI) | payer MEDICAID, SELFPAY ==
[2017-12-03 11:54] VITALS: BMI 23.6
--- NOTE | 2017-12-28 12:58 | PCM.CR.HP2 ---
CR - History & Physical - General Arrival date:: 12/28/17 Arrival time:: 12:58 Referring Physician: Dr. Mat Alonso Primary Diagnosis: Z95.5 12/03/2017 - History of Present Cardiac Event Onset Date: Enter Onset Date of cardiac illnesses in Comment field below Angina:: Yes [place]:: No PTCA:: Yes Were there any complications?: groin pain - Medications Home Medications: Ambulatory Orders Medication Instructions Recorded Albuterol Inhaler [Ventolin Hfa] 2 puff INHALATION Q4H PRN PRN #1 02/16/17 inhaler Budesonide/Formoterol 160/4.5 2 puff INHALATION PRN PRN 12/02/17 [Symbicort 160/4.5 Mcg Inhaler (SP)] Acetaminophen [Tylenol Tablet] 650 mg PO Q4H PRN PRN tablet 12/04/17 Albuterol Aerosols [Ventolin 2.5 mg INHALATION Q4H PRN PRN 12/04/17 Aerosols] vial.neb. Aspirin E.C. [Ecotrin] 81 mg PO DAILY@0800 #30 tab 12/04/17 Atorvastatin Calcium [Lipitor] 40 mg PO QHS #30 tab 12/04/17 Carvedilol [Coreg (Beta Alise)] 3.125 mg PO BID #60 tab 12/04/17 Clopidogrel Bisulfate [Plavix] 75 mg PO DAILY #30 tab 12/04/17 Losartan Potassium [Cozaar] 25 mg PO DAILY #30 tab 12/04/17 Nicotine [Nicoderm Cq] 21 mg TRANSDERM. DAILY #28 patch 12/04/17 Nitroglycerin [Nitrostat] 0.4 mg SUBLINGUAL Q5M PRN #1 bottle 12/04/17 - Allergies Allergies/Adverse Reactions: Allergies bupropion HCl [From Wellbutrin] Adverse Reaction (Verified 12/02/17 04:44) Other prednisone Adverse Reaction (Verified 12/02/17 04:44) Other - Sleep Disorder Evaluation Hx of Sleep Apnea: No Do you snore loudly (louder than talking or can be heard through closed doors)?: No Do you often feel tired/ fatigued/ sleepy during daytime?: Yes Has anyone observed you stop breathing during sleep?: No History of Hypertension (for STOP score): No STOP Results: Negative Advanced Directives - Advanced Directives Power of Imaging Technician: No Living Will: No Advance Directives Information Provided: Yes Advance Directives on File: No DNR Order?:: No Past Medical History - Problems and Co-Morbidities Problems & Co-Morbidities: Smoking, Dyslipidemia, Hypertension, Depression - Past Medical Illness Other Medical Illnesses:: uterine cancer, hysterectomy - Cardiology Procedures/Interventions Cardiology Procedures/Interventions: PCI w/Stenting, Heart Catheterization, Echocardiogram - Past Surgical History Surgical History: hysterectomy - with BL oophorectomy for cervical CA,, - - neurosurgery to repair a intracerebral aneurysm, left broken foot with pins - Family History Summary Family History: Heart Disease: Maternal, Paternal Review of Systems - Review of Systems Hints: Right click = Denies (Slash). Left click = Reports ([place]) Review of Present Symptoms: Reports: Appetite - Normal, Sleep - Normal. Denies: Shortness of Breath at Rest, Shortness of Breath with Exertion, PVD, Operative Discomfort, Angina, Wound Healing, Dizziness/Lightheadedness, Fatigue, Heart Arrhythmia/Irregularities, Appetite - Special Diet, Sexual Changes Risk Factor Assessment - Chief Complaint Chief Complaint: CP - Pulse Pulse Rate: 88 - 94 % SPO2 Pulse Rhythm: Regular - Hypertension How long have you been treated?: 3 weeks Blood Pressure Sitting - Left Arm: 108/50 - Stress Stress: Long-standing, Home/Family - Diabetes Nutrition Referral for Diabetes: No - Obesity Height: 1.6 m Weight:: 60.328 kg Weight in Pounds: 133.0 lbs Body Mass Index (BMI): 23.6 Nutritional Referral for Obesity: No - Physical Inactivity Physical Inactivity: Recreational activity - Risk Stratification Risk Guidelines: Moderate Risk: Risk Factor for Dyslipidemia, Risk Factor for Diabetes, Risk Factor for Obesity, Risk Factor for Hypertension, Risk Factor for Sedentary Lifestyle, Highest Risk: Risk Factor for Smoking, Risk Factor for Depression - For Smoking Smoking Risk Guidelines: Smoking Low Risk: None or quit greater than 6 months ago. Smoking Moderate Risk: Smoker or quit 6 months or less ago. Smoking High Risk: Smoker - For Dyslipidemia Dyslipidemia Risk Guidelines: Low Risk: Moderate Risk: High Risk: 15-25% fat 25.1-29% fat >/= 30% fat. <7% sat fat 7-9% sat fat >9% sat fat. <150 mg chol 150-299 mg chol >/= 300 mg chol. LDL <100 LDL 100-129 LDL >/= 130. Chol/HDL ratio <5.0 Chol/HDL ratio 5.0-6.0 Chol/HDL ratio >6.0. Triglycerides <100 Triglycerides 100-149 Triglycerides >/= 150 - For Diabetes Mellitus Diabetes Risk Guidelines: Diabetes Low Risk: HgA1c <6.5% and/or FBG <120. Diabetes Moderate Risk: HgA1c 6.6-7.9% and/or FBG 120-180. Diabetes High Risk: HgA1c >/= 8% and/or FBG >180 - For Obesity/Overweight Obesity/Overweight Risk Guidelines: Obesity Low Risk: BMI <25.0. Obesity Moderate Risk: BMI 25-29.9. Obesity High Risk: BMI >/= 30.0 - For Hypertension Hypertension Risk Guidelines: Hypertension Low Risk: Systolic <120 and Diastolic <80. Hypertension Moderate Risk: Systolic 120-139 and Diastolic 80-89. Hypertension High Risk: Systolic >/= 140 and Diastolic >/= 90 - For Sedentary Lifestyle Sedentary Lifestyle Risk Guidelines: Sedentary Lifestyle Low Risk: >/= 1,500 kcal/week. Sedentary Lifestyle Moderate Risk: 700-1,499 kcal/week. Sedentary Lifestyle High Risk: < 700 kcal/week - For Depression Depression Risk Guidelines: Depression Low Risk: Not clinically depressed. Depression Moderate Risk: Mildly depressed. Depression High Risk: Clinically depressed Social History - Smoking History Smoking Status: Current every day smoker Years Smokin Packs Smoked per Day: 1 Hx Tobacco Use: Yes Hx Smoking Exposure: Yes - Alcohol Use Alcohol Usage: No - Substance Abuse Hx Substance Use: Yes - THC - Occupation Occupation (List type of work in comments):: Unemployed - disabled - Hobbies, Recreation, Social Activities Hobbies: Other - bingo and racing Recreational Activities: I am able to engage in a few activities Marital Status - Status Marital Status: Single - Current Living Arrangements Living Environment:: Family - Children How many children do you have?: 3 Do any of your children live nearby?: Yes - Safety Do you feel safe in your surroundings?: Yes - Assistance Do you need any assistance at home?: none
--- NOTE | 2017-12-28 13:07 | CR.ITP_ITS ---
<Cuate Thomas - Last Filed: 12/28/17 12:57> Exercise - Initial Assessment - Visit Date of Eval: 12/28/17 - Initial Eval - Stages of Change Stages of Change:: Contemplate - Exercise Prescription Mode:: Treadmill, Biodyne, Rower, Airdyne, NuStep Angina with exercise?: No - Hypertension Do any of the following apply?: Yes Resting Blood Pressure:: 108/50 - Intervention Home Exercise/Activity Goal:: Sitting Time <3 hrs/day - Education Goals:: Warm-up, RPE CASSY Scale, S/S, Safe Exercise, Self-Monitoring - Exercise Program Goals Exercise Program Goals: Aerobic Activity >30 min, B/P <140/90 Nutrition - Initial Assessment - Program Goals Nutrition Program Goals: LDL <70. Total Cholesterol <200. HDL >45. Triglycerides <150. HgbA1C <7%. BMI <25 - Visit Date of Assessment:: 12/28/17 - Stages of Change Stages of Change:: Contemplate - Diabetes Diabetes:: No - Weight Management Height: 5 ft 2.99 in Weight:: 60.328 kg Total Score:: 5 - Intervention Referral to dietitian:: No Referral to Diabetic Clinic:: No Will attend diet classes:: Yes - Education Gave educational materials for:: Signs & symptoms of hypoglycemia, Signs & symptoms of hyperglycemia, Relate diabetes to coronary artery disease, Healthy eating Nutrition - 30-Day Assessment - Program Goals Nutrition Program Goals: LDL <70. Total Cholesterol <200. HDL >45. Triglycerides <150. HgbA1C <7%. BMI <25 - Diabetes Diabetes:: No Nutrition - 60-Day Assessment - Program Goals Nutrition Program Goals: LDL <70. Total Cholesterol <200. HDL >45. Triglycerides <150. HgbA1C <7%. BMI <25 - Diabetes Diabetes:: No Nutrition - 90-Day Assessment - Program Goals Nutrition Program Goals: LDL <70. Total Cholesterol <200. HDL >45. Triglycerides <150. HgbA1C <7%. BMI <25 - Diabetes Diabetes:: No Nutrition - Final Assessment - Program Goals Nutrition Program Goals: LDL <70. Total Cholesterol <200. HDL >45. Triglycerides <150. HgbA1C <7%. BMI <25 - Diabetes Diabetes:: No Tobacco - Initial Assessment - Program Goals Tobacco Program Goals: Complete smoking cessation. Attend education classes. Improve Knowledge Test score - Stage of Change Stages of Change:: Contemplate - Learning Barriers Total Score:: 6 - Family Support Do you have family support?: Yes - Tobacco Use Tobacco Use: Cigarettes Do you use smokeless tobacco?: No - Intervention Smoking Cessation Referral:: No Individual Education/Counseling:: No Education Schedule Given:: Yes - Education Gave educational material for:: Tobacco triggers, Coronary artery disease, Risk factors, Sexuality, Medical compliance, Cardiac A&P, Angina signs & symptoms Psychosocial - Initial Assess - Target Goals Target Goals: Assess presence or absence of depression. Using a valid screening tool, maximizes coping skills. Positive support system - Stages of Change Stages of Change:: Contemplate - Psychosocial Test Tool Used:: HANDS Depression Questionnaire Total Mood Screening Score:: 9 Self-Efficacy Score:: 4 - Intervention PS - Interventions: Yes Attend Stress Management Classes, Yes Uses Stress Management Skills, No Referral to Mental Health, No Referral to [facility] Case Management, No Referral to Physician - Education Gave educational materials for:: Coping techniques, Signs & symptoms of depression, Stress management, Relaxation techniques - Assistive Devices Assistive Devices:: None Fall Risk Assessed:: Yes Patient Health Questionnaire Initial Assessment 1. Little interest or pleasure in doing things: Several days 2. Feeling down, depressed, or hopeless: Not at all 3. Trouble falling or staying asleep, or sleeping too much: More than half the days 4. Feeling tired or having little energy: Several days 5. Poor appetite or overeating: Nearly every day 7. Trouble concentrating on things, such as reading the newspaper or watching television: Several days 8. Moving or speaking so slowly that other people could have noticed. Or the opposite - being so fidgety or restless that you have been moving around a lot more than usual: Several days 9. Thoughts that you would be better off , or of hurting yourself in some way: Not at all How difficult have these problems made it for you to do your work, take care of things at home, or get along with other people?: Not difficult at all Total Score: 9 Knowledge Test - Check your knowledge Initial The #1 cause of in the [place] each year is:: Heart disease Which of the following is a common treatment for heart disease?: All of the above The arteries that feed the heart are called:: Coronary arteries HDL cholesterol is known as the good cholesterol.: False What disease increases your risk for heart disease?: Diabetes What food product raises blood cholesterol level the most?: Vegetable oil The bad cholesterol in the blood is called:: HDL Hypertension is another word for:: High blood pressure A blood pressure reading of 148/88 is considered normal.: False Exercise will only benefit your health when your heart rate reaches a target level.: True Total Score:: 6 Self-Efficacy Initial Assessment We would like to know how confident you are in doing certain activities. Please select your confidence level for:: Select your confidence level for the following using the scale 1-10 where 1 is not at all confident and 10 is totally confident. Your score is the average of all 6 responses. Fatigue: How confident are you that you can keep the fatigue caused by your disease from interfering with the things you want to do? Select Number: 5 Physical Discomfort or Pain: How confident are you that you can keep the physical discomfort or pain of your disease from interfering with the things you want to do? Select Number: 5 Emotional Distress: How confident are you that you can keep the emotional distress caused by your disease from interfering with the things you want to do? Select Number: 5 Other Symptoms or Health Problems: How confident are you that you can keep other symptoms or health problems from interfering with the things you want to do? Select Number: 4 Different Tasks and Activities: How confident are you that you can do the different tasks and activities needed to manage your health condition so as to reduce your need to see a doctor? Select Number: 3 Medication: How confident are you that you can do things other than just taking medication to reduce how much your illness affects your everyday life? Select Number: 5 Total Score:: 4 Nutrition Survey - Nutrition Survey Instructions Scoring Instructions: Scoring is as follows: Yes = 1 points. No = 0 point. Patient score that is >/=12 is considered to be at potential nutritional risk and could benefit from a referral to a registered dietitian. - Nutrition Survey Initial Have you lost >10 lbs over the past 2 months without trying?: No Are you following a special diet at home for diabetes, low fat, or low salt?: No Are you interested in meeting with a dietitian for help understanding your diet? : No Do you eat less than 3 meals a day?: Yes Do you eat fatty meats (javier, sausage, ribs, etc), fried foods, desserts, large amounts of salad dressings, margarine, butter, or cheese most days?: Yes Do you have food allergies? [Enter types in comment field]: No Do you eat in restaurants more than 3 times a week?: Yes Do you season food with salt, seasoning salt, or garlic salt?: Yes Do you used canned, boxed, frozen meals, or soups, seasoning packets?: Yes Total Score:: 5 Cardiac Rehabilitation Goals - Cardiac Rehab Goals Cardiac Rehabilitation Goals: 1. Maintain the individual as the primary focus of care. 2. To improve the patient's quality of life. 3. Identification of cardiac risk factors and provide cardiac risk factor management. 4. Enhance the psychosocial status of the patient. 5. Reconditioning enough to allow the patient to resume customary activities. 6. Control symptoms of cardiac disease - Scale Scale for measuring improvement of personal goals: Enter appropriate number in Comments. 2 = Unchanged. 3 = Slightly Better. 4 = Moderate Improvement. 5 = Met my Goal Initial Assessment Personal Goals: 30-day Re-assessment: Improve management of stress and emotions , Improve energy level, Improve diet and eating habits (eat healthier) <Jose Arciniega - Last Filed: 01/01/18 06:43> Exercise - Initial Assessment - Visit Date of Eval: 01/01/18 Session #:: 0 - Established ITP; patient to start *01/04/2018
--- NOTE | 2017-12-28 13:11 | CR.HP_ITS ---
CR - History & Physical - General Arrival date:: 12/28/17 Arrival time:: 12:58 Referring Physician: Dr. Mat Alonso Primary Diagnosis: Z95.5 12/03/2017 - History of Present Cardiac Event Onset Date: Enter Onset Date of cardiac illnesses in Comment field below Angina:: Yes [place]:: No PTCA:: Yes Were there any complications?: groin pain - Medications Home Medications: Ambulatory Orders Medication Instructions Recorded Albuterol Inhaler [Ventolin Hfa] 2 puff INHALATION Q4H PRN PRN #1 02/16/17 inhaler Budesonide/Formoterol 160/4.5 2 puff INHALATION PRN PRN 12/02/17 [Symbicort 160/4.5 Mcg Inhaler (SP)] Acetaminophen [Tylenol Tablet] 650 mg PO Q4H PRN PRN tablet 12/04/17 Albuterol Aerosols [Ventolin 2.5 mg INHALATION Q4H PRN PRN 12/04/17 Aerosols] vial.neb. Aspirin E.C. [Ecotrin] 81 mg PO DAILY@0800 #30 tab 12/04/17 Atorvastatin Calcium [Lipitor] 40 mg PO QHS #30 tab 12/04/17 Carvedilol [Coreg (Beta Alise)] 3.125 mg PO BID #60 tab 12/04/17 Clopidogrel Bisulfate [Plavix] 75 mg PO DAILY #30 tab 12/04/17 Losartan Potassium [Cozaar] 25 mg PO DAILY #30 tab 12/04/17 Nicotine [Nicoderm Cq] 21 mg TRANSDERM. DAILY #28 patch 12/04/17 Nitroglycerin [Nitrostat] 0.4 mg SUBLINGUAL Q5M PRN #1 bottle 12/04/17 - Allergies Allergies/Adverse Reactions: Allergies bupropion HCl [From Wellbutrin] Adverse Reaction (Verified 12/02/17 04:44) Other prednisone Adverse Reaction (Verified 12/02/17 04:44) Other - Sleep Disorder Evaluation Hx of Sleep Apnea: No Do you snore loudly (louder than talking or can be heard through closed doors)? : No Do you often feel tired/ fatigued/ sleepy during daytime?: Yes Has anyone observed you stop breathing during sleep?: No History of Hypertension (for STOP score): No STOP Results: Negative Advanced Directives - Advanced Directives Power of Restaurant Hourly Team Member: No Living Will: No Advance Directives Information Provided: Yes Advance Directives on File: No DNR Order?:: No Past Medical History - Problems and Co-Morbidities Problems & Co-Morbidities: Smoking, Dyslipidemia, Hypertension, Depression - Past Medical Illness Other Medical Illnesses:: uterine cancer, hysterectomy - Cardiology Procedures/Interventions Cardiology Procedures/Interventions: PCI w/Stenting, Heart Catheterization, Echocardiogram - Past Surgical History Surgical History: hysterectomy - with BL oophorectomy for cervical CA,, - - neurosurgery to repair a intracerebral aneurysm, left broken foot with pins - Family History Summary Family History: Heart Disease: Maternal, Paternal Review of Systems - Review of Systems Hints: Right click = Denies ([place]ash). Left click = Reports ([place]) Review of Present Symptoms: Reports: Appetite - Normal, Sleep - Normal. Denies : Shortness of Breath at Rest, Shortness of Breath with Exertion, PVD, Operative Discomfort, Angina, Wound Healing, Dizziness/Lightheadedness, Fatigue , Heart Arrhythmia/Irregularities, Appetite - Special Diet, Sexual Changes Risk Factor Assessment - Chief Complaint Chief Complaint: CP - Pulse Pulse Rate: 88 - 94 % SPO2 Pulse Rhythm: Regular - Hypertension How long have you been treated?: 3 weeks Blood Pressure Sitting - Left Arm: 108/50 - Stress Stress: Long-standing, Home/Family - Diabetes Nutrition Referral for Diabetes: No - Obesity Height: 1.6 m Weight:: 60.328 kg Weight in Pounds: 133.0 lbs Body Mass Index (BMI): 23.6 Nutritional Referral for Obesity: No - Physical Inactivity Physical Inactivity: Recreational activity - Risk Stratification Risk Guidelines: Moderate Risk: Risk Factor for Dyslipidemia, Risk Factor for Diabetes, Risk Factor for Obesity, Risk Factor for Hypertension, Risk Factor for Sedentary Lifestyle, Highest Risk: Risk Factor for Smoking, Risk Factor for Depression - For Smoking Smoking Risk Guidelines: Smoking Low Risk: None or quit greater than 6 months ago. Smoking Moderate Risk: Smoker or quit 6 months or less ago. Smoking High Risk: Smoker - For Dyslipidemia Dyslipidemia Risk Guidelines: Low Risk: Moderate Risk: High Risk: 15-25% fat 25.1-29% fat >/= 30% fat. <7% sat fat 7-9% sat fat >9% sat fat. <150 mg chol 150-299 mg chol >/= 300 mg chol. LDL <100 LDL 100-129 LDL >/= 130. Chol/HDL ratio <5.0 Chol/HDL ratio 5.0-6.0 Chol/HDL ratio >6.0. Triglycerides <100 Triglycerides 100-149 Triglycerides >/= 150 - For Diabetes Mellitus Diabetes Risk Guidelines: Diabetes Low Risk: HgA1c <6.5% and/or FBG <120. Diabetes Moderate Risk: HgA1c 6.6-7.9% and/or FBG 120-180. Diabetes High Risk: HgA1c >/= 8% and/or FBG >180 - For Obesity/Overweight Obesity/Overweight Risk Guidelines: Obesity Low Risk: BMI <25.0. Obesity Moderate Risk: BMI 25-29.9. Obesity High Risk: BMI >/= 30.0 - For Hypertension Hypertension Risk Guidelines: Hypertension Low Risk: Systolic <120 and Diastolic <80. Hypertension Moderate Risk: Systolic 120-139 and Diastolic 80-89. Hypertension High Risk: Systolic >/= 140 and Diastolic >/= 90 - For Sedentary Lifestyle Sedentary Lifestyle Risk Guidelines: Sedentary Lifestyle Low Risk: >/= 1 ,500 kcal/week. Sedentary Lifestyle Moderate Risk: 700-1,499 kcal/week. Sedentary Lifestyle High Risk: < 700 kcal/week - For Depression Depression Risk Guidelines: Depression Low Risk: Not clinically depressed. Depression Moderate Risk: Mildly depressed. Depression High Risk: Clinically depressed Social History - Smoking History Smoking Status: Current every day smoker Years Smokin Packs Smoked per Day: 1 Hx Tobacco Use: Yes Hx Smoking Exposure: Yes - Alcohol Use Alcohol Usage: No - Substance Abuse Hx Substance Use: Yes - THC - Occupation Occupation (List type of work in comments):: Unemployed - disabled - Hobbies, Recreation, Social Activities Hobbies: Other - bingo and racing Recreational Activities: I am able to engage in a few activities Marital Status - Status Marital Status: Single - Current Living Arrangements Living Environment:: Family - Children How many children do you have?: 3 Do any of your children live nearby?: Yes - Safety Do you feel safe in your surroundings?: Yes - Assistance Do you need any assistance at home?: none
[2017-12-28 13:55] VITALS: BP 108/50; PULSE 88; BMI 23.6
== END ==
PROVIDERS: Family Provider Family Medicine; PCP Family Medicine; Visit Provider Internal Medicine Cardiovascular Disease
DX: Z95.5 Presence of coronary angioplasty implant and graft (principal)

== ENCOUNTER 2018-03-02 18:36 | Emergency (ER) | payer MEDICAID, SELFPAY ==
[2017-12-03 11:54] VITALS: BMI 23.6
[2018-03-02 18:37] VITALS: BP 106/63; PULSE 89; RESP 20; TEMP 36.9; O2SAT 93; BMI 26.6
--- NOTE | 2018-03-02 18:38 | NURSING ---
RN CALLED FOR EKG, PULLED OLD EKG'S FOR
--- NOTE | 2018-03-02 18:41 | EKG12_ITS ---
Test Reason : CP Blood Pressure : / mmHG Vent. Rate : 081 BPM Atrial Rate : 081 BPM P-R Int : 128 ms QRS Dur : 072 ms QT Int : 366 ms P-R-T Axes : 068 -01 -40 degrees QTc Int : 425 ms Normal sinus rhythm Septal infarct , age undetermined T wave abnormality, consider anterior ischemia Abnormal ECG Confirmed by KASEY ANGELA, ETIENNE ([id number]), assistant editor BIRDIE JEFFREY ([id number]) on 03/05/2018 2:05:29 PM Referred By: CECI Confirmed By:ETIENNE PARKS MD
--- NOTE | 2018-03-02 18:50 | RAD_ITS ---
STUDY: X-RAY CHEST REASON FOR EXAM: Female, 42 years old. Chest pains and shortness of breath TECHNIQUE: Single AP portable view of the chest. COMPARISON: Prior study of 12/02/2017 FINDINGS: monitoring engineer leads are present. The lungs are clear and expanded. There is no demonstrated pleural abnormality. Normal size heart. Normal mediastinum and kt. Normal visualized pulmonary arteries. Normal visualized aortic arch and descending thoracic aorta. Normal visualized thoracic spine. Normal visualized ribs, clavicles, and shoulders. There is no demonstrated abnormality of the visualized soft tissue structures of the upper abdomen. RAD/Chest 1 View (Portable) IMPRESSION: Normal x-ray examination of the chest. Electronically Signed: Nhan Berry MD at 19:24 EDT , Service support ,
[2018-03-02] MEDS: Aspirin 81 MG TAB.CHEW 324 MG PO (18:52)
[2018-03-02] MEDS: 0.9% Normal Saline 1,000 ML 150 ML IV (18:52)
--- NOTE | 2018-03-02 19:05 | ED.DCSUM_ITS ---
- ER Visit Summary Date of Service: 03/02/18 Chief Complaint: Chest pain History of Present Illness: The patient is a [address] Bennett Alonso. She reports that at 450 while at rest she had the onset of a substernal pain that she is unable to further describe. States pain is 10 out of 10 at worst and she is pain-free currently. Is worsened by nothing including exertion. Initially she began by taking baking soda and water and did not have relief. She took one sublingual nitro and became diaphoretic. The pain did not resolve so she took a second nitro. She became very lightheaded. She walked outside to get air and had a syncopal episode. Patient reports that this is similar to the pain that she had prior to her stent in November of this year. She denies headache. She reports that she is taking her Plavix. Physical Examination: Vitals: Stable. Afebrile. General: Well-nourished and well-developed. Head: Normocephalic atraumatic. Neck: Supple, no lymphadenopathy. No JVD. Nontender. Cardiovascular: Regular rate and rhythm. No murmurs. Respiratory: No respiratory distress. Clear to auscultation bilaterally. Abdominal: Soft, nontender, nondistended, normal bowel sounds. No guarding, rebound, or peritoneal signs. Back: Nontender. Extremities: Nontender, no edema. Skin: Normal color, no rash. Neurologic: Alert and oriented ?3. Cranial nerves II through XII are intact. Normal strength and sensation. Psych: Normal affect. Test Results: EKG is sinus at 81 and is unchanged from December 04, 2017. CBC is marked for white count of 11.2. Chem-7 is more for glucose 150. Initial troponin is negative. Repeat EKG and repeat troponin are unchanged. Chest x- ray is normal. Emergency Department Course and Treatment: Patient was treated with aspirin. She is pain-free currently. She refused a CT of the head. Treatment Plan: The patient was discussed with Dr. Alonso. With a 3 hour rule out we are both comfortable with her being discharged home. She is instructed to follow-up with Dr. Bennett Blandon in 1-2 days if not improving. Return to the emergency department for any worsening symptoms. Disposition: To home in improved and stable condition. Impression: 1. Atypical chest pain. 2. ESTEFANIA score of 3. 3. Syncope after sublingual nitroglycerin ?2. This note was generated with [employer] dictation software. It may contain incorrect words, spelling, and punctuation that were not noted in review of the chart prior to signing ED Disposition - Plan for ED Patient: Disposition: Home or Assisted Living Chief Complaint: Chest Pain Instructions: ED Chest Pain Atypical Unkn Cause Referrals: Bennett Blandon, DO [Primary Care Provider] - 1-2 Days if not improving
[2018-03-02 19:08] LABS: Absolute Lymphocyte Count 2.67 X10^3/ul (0.83-4.51); Absolute Neutrophil Count 7.6 X10^3/uL (2.0-7.7); Basophil# 0.02 X10^3/uL; Basophil% 0.2 % (0-1); Eosinophil# 0.14 X10^3/uL; Eosinophils% 1.3 % (0-5); Hematocrit 42.2 % (37-47); Hemoglobin 13.7 g/dl (12.0-15.0); Lymphocyte # 2.67 X10^3/ul (4.0); Lymphocyte % 23.9 % (19-41); Mean Corp Hgb Conc 32.5 g/gl (32-36); Mean Corpuscular Hgb 31.8 pg (27.0-32.0); Mean Corpuscular Volume 97.9 fL (81-99); Mean Platelet Vol. 9.3 fl (6.2-12.0); Monocyte# 0.66 X10^3/uL; Monocyte% 5.9 % (0-10); Neutrophil # 7.64 X10^3/uL (2.7-7.7); Neutrophil % 68.3 % (47-70); Platelet Count 225 K/mm3 (150-450); RBC Distribution Width CV 12.6 % (11.6-14.6); RBC Distribution Width SD 45.3 fl (35.1-43.9); Red Blood Count 4.31 M/mm3 (4.2-5.4); White Blood Count 11.2 K/mm3 (4.4-11.0)
[2018-03-02 19:18] LABS: POSITIVE COUNT NO; POSITIVE DIFFERENTIAL NO; POSITIVE MORPHOLOGY NO
[2018-03-02 19:20] LABS: Anion Gap 7 (5-15); BUN 10 mg/dL (7-18); BUN/Creat Ratio 10.9 RATIO (10-20); Calcium,Total 8.6 mg/dL (8.5-10.1); Chloride 106 mmol/L (98-107); Creatinine, Serum 0.92 mg/dL (0.55-1.02); EST Glomerular Filtration Rate 71 mL/min (>60); Est Glom Filt Rate - Afr Amer 86 mL/min (>60); Estimated Creatinine Clearance 62.36 ml/min; Glucose 150 mg/dL (74-106); Potassium 3.8 mmol/L (3.5-5.1); Sodium Level 141 mmol/L (136-145)
--- NOTE | 2018-03-02 19:49 | EKG12_ITS ---
Test Reason : REPEAT Blood Pressure : / mmHG Vent. Rate : 079 BPM Atrial Rate : 079 BPM P-R Int : 124 ms QRS Dur : 076 ms QT Int : 362 ms P-R-T Axes : 073 000 -45 degrees QTc Int : 415 ms Normal sinus rhythm Septal infarct , age undetermined T wave abnormality, consider inferior ischemia T wave abnormality, consider anterior ischemia Abnormal ECG Confirmed by ETIENNE PARKS MD ([id number]), scientific editor BIRDIE JEFFREY ([id number]) on 03/05/2018 2:05:55 PM Referred By: CECI Confirmed By:ETIENNE PARKS MD
[2018-03-02 20:08] VITALS: BP 123/68; PULSE 82; RESP 12; O2SAT 96
[2018-03-02 21:44] VITALS: BP 104/63; PULSE 89; RESP 16; O2SAT 95
[2018-03-02] MEDS: Clopidogrel Bisulfate 75 MG Tablet PO (21:44)
[2018-03-02 22:00] VITALS: BP 112/81; PULSE 79; RESP 16; O2SAT 93
[2018-03-02] MEDS: HYDROcodone Bitartrate/Apap 5/325 Tablet PO ×2 (22:59→23:00)
[2018-03-02 23:04] VITALS: BP 112/81; PULSE 86; RESP 16; O2SAT 98
== END 2018-03-02 23:05 | disposition home or self-care (01) ==
LOC: ED 19:00
PROVIDERS: Emergency Provider Emergency Medicine; Family Provider Family Medicine; PCP Family Medicine
DX: R07.89 Other chest pain (principal); R55 Syncope and collapse; R19.7 Diarrhea, unspecified; R05 Cough; I10 Essential (primary) hypertension; E78.00 Pure hypercholesterolemia, unspecified; J44.9 Chronic obstructive pulmonary disease, unspecified; I25.10 Atherosclerotic heart disease of native coronary artery without angina pectoris; K21.9 Gastro-esophageal reflux disease without esophagitis; F17.210 Nicotine dependence, cigarettes, uncomplicated
CPT/HCPCS: 36415; 71045; 80048; 84484; 85025; 93005; 96360; 96361; 99285; J7030; A4216

== ENCOUNTER 2018-09-24 08:09 | Emergency (ER) | payer MEDICAID, SELFPAY ==
[2017-12-03 11:54] VITALS: BMI 23.6
[2018-09-24 08:10] VITALS: BP 125/71; PULSE 95; RESP 15; TEMP 36.6; BMI 25.6
--- NOTE | 2018-09-24 08:38 | ED.DCSUM_ITS ---
- ER Visit Summary Date of Service: 09/24/18 Chief Complaint: Insect bites and left eye redness History of Present Illness: The patient is a 43 F who presents for 1-1/2 weeks of recurring insect bites on her wrists and also complaining of left eye redness. Patient has had pruritic nodules appear on her wrists and a few scattered elsewhere, including lower leg and back of neck over the last week and a half. Patient has exposure to bedbugs, as her daughter has been staying with her mother who does have bedbugs, but patient has not noted any in the house. She also has pets and has been treating them for fleas. Patient was seen in urgent care and was treated with Zyrtec and Benadryl but states the itching continues and she continues to get new lesions. She denies any involvement of the mucosal surfaces or the palms or soles. Patient also has been having an intermittent left red eye that is irritated and producing discharge. Patient has no eye pain. Associated congestion, rhinorrhea, cough. Denies fever, abdominal pain, chest pain, nausea or vomiting, urinary symptoms, diarrhea. Medical history remarkable for COPD, tobacco use, coronary artery disease. Physical Examination: Vital signs: afebrile, hemodynamically stable, no hypoxia on room air General: well nourished, well developed, in no distress Skin: warm, dry, no pallor, multiple uniform sized nodules on the bilateral wrists with secondary excoriations and scabbing of the apices. No purulent discharge or fluctuance. No surrounding erythema or lymphangitis. No involvement of the palms or soles. Single lesions noted to the right lower leg, the forehead, and the back of the neck. lesions are in various stages of healing. No other rash noted, no vesicles, bullae, petechiae or purpura. HEENT: normocephalic and atraumatic; PERRL, EOMI, no pain with eye movement, diffuse conjunctival injection of the left eye with mild erythema to the eyelid, no tenderness, no periorbital swelling, presence of dried crusted discharge around the eyelid with clear watery active discharge. No foreign bodies noted. Moist mucous membranes. Oropharynx is clear without lesions. TMs clear and pearly with good light reflex, no bulging or dullness. Neck supple without lymphadenopathy, no tenderness. Cardiovascular: regular rate and rhythm without murmurs, no peripheral edema, 2+ pulses all distal extremities Respiratory: No increased work of breathing, lungs are clear to auscultation bilaterally, no rales, rhonchi or wheezing Abdominal: Abdomen is soft, nontender with normoactive bowel sounds, no guarding or rebound, no masses MSK: Moves all extremities, no deformities, normal strength Neuro: Awake and alert, oriented ?4. No facial droop, sensation and motor function intact and symmetric Test Results: [] Emergency Department Course and Treatment: Examination of patient's rash does look consistent with arthropod bites, and the pruritus is consistent with this. There is no sign of secondary infection. Patient denies any history of IV drug use, and the lesions do not appear to be vasculitic or due to septic emboli. Lesions do not appear urticarial. Patient was prescribed hydrocortisone topical cream and advised to examine her house for any evidence of fleas or bedbugs. If patient's rash does not improve, she may require evaluation by traffic counter. She is advised to follow-up with her primary care doctor for reevaluation if the rash persists to consider alternative causes other than arthropod bites. Patient's left eye appears consistent with conjunctivitis, and given the discharge, this may be a bacterial conjunctivitis. Thus patient was prescribed erythromycin ointment. We discussed that it also is possibly an allergic, irritant or viral conjunctivitis. Patient has mild associated URI symptoms for less than a week, and thus we discussed that treatment of her symptoms with antibiotics at this time is not indicated. Patient was discharged home well- appearing and is to follow-up with her primary care doctor. Treatment Plan: [] Disposition: [] Impression: Left eye conjunctivitis, multiple arthropod bites, URI This note was generated with [employer] dictation software. It may contain incorrect words, spelling, and punctuation that were not noted in review of the chart prior to signing ED Disposition - Plan for ED Patient: Disposition: Home or Assisted Living Chief Complaint: Eye Problem Instructions: ED Conjunctivitis Bacterial, ED Bite Insect Prescriptions: Hydrocortisone 1% Crm [Hytone] 1 applic TOPICAL TID PRN #1 tube PRN Reason: Itching Referrals: Bennett Blandon, [Primary Care Provider] - 3-5 Days if not improving Additional Instructions: Use the antibiotic eye ointment as prescribed. Use the hydrocortisone cream as needed for itching. DO NOT SCRATCH THE BITES. This increases your risk of infection. If you continue to have these lesions, please follow-up with your primary care doctor and to discuss dermatology referral. If you have any worsening of your condition or any new concerning symptoms, please return immediately to the emergency department for another evaluation.
[2018-09-24] MEDS: Erythromycin Base 1 OPTH.TUBE 1 APPLIC LEFT EYE (08:40)
== END 2018-09-24 08:47 | disposition home or self-care (01) ==
PROVIDERS: Emergency Provider Emergency Medicine; Family Provider Family Medicine; PCP Family Medicine
DX: H10.9 Unspecified conjunctivitis (principal); J06.9 Acute upper respiratory infection, unspecified; S60.861A Insect bite (nonvenomous) of right wrist, initial encounter; S60.862A Insect bite (nonvenomous) of left wrist, initial encounter; W57.XXXA Bitten or stung by nonvenomous insect and other nonvenomous arthropods, initial encounter; J44.9 Chronic obstructive pulmonary disease, unspecified; I25.10 Atherosclerotic heart disease of native coronary artery without angina pectoris; Z72.0 Tobacco use
CPT/HCPCS: 99282

== ENCOUNTER 2018-11-02 11:49 | Emergency (ER) | payer MEDICAID, SELFPAY ==
[2017-12-03 11:54] VITALS: BMI 23.6
[2018-11-02 11:50] VITALS: BP 120/81; PULSE 110; RESP 19; TEMP 36.6; O2SAT 95; BMI 23.8
--- NOTE | 2018-11-02 11:58 | RAD_ITS ---
STUDY: X-RAY CHEST REASON FOR EXAM: Female, 43 years old. Chills and cough. TECHNIQUE: Single AP portable view of the chest. COMPARISON: 03/02/2018. FINDINGS: The lungs are clear and expanded. There is no demonstrated pleural abnormality. Normal size heart. Normal mediastinum and kt. Normal visualized pulmonary arteries. Normal visualized aortic arch and descending thoracic aorta. Normal visualized thoracic spine. Normal visualized ribs, clavicles, and shoulders. There is no demonstrated abnormality of the visualized soft tissue structures of the upper abdomen. RAD/Chest 1 View (Portable) IMPRESSION: Normal x-ray examination of the chest. Electronically Signed: Barrie Marte MD at 12:51 EST , Service support ,
--- NOTE | 2018-11-02 11:58 | EKG12_ITS ---
Test Reason : CP Blood Pressure : / mmHG Vent. Rate : 107 BPM Atrial Rate : 107 BPM P-R Int : 128 ms QRS Dur : 070 ms QT Int : 314 ms P-R-T Axes : 084 -39 -39 degrees QTc Int : 419 ms Sinus tachycardia Left axis deviation Low voltage QRS (limb leads) T-wave abnormality: consider anterior ischemia Abnormal ECG Confirmed by LAURIE ANGELA, JOSE DE JESUS ([id number]), production editor BIRDIE JEFFREY ([id number]) on 11/04/2018 12:38:12 PM Referred By: RACIEL Confirmed By:JOSE DE JESUS SULLIVAN MD
--- NOTE | 2018-11-02 11:59 | ED.VISSUMM ---
- ER Visit Summary Date of Service: 11/02/18 Chief Complaint: Chest pain, cough, sore throat History of Present Illness: The patient is a 43 F who has had the above symptoms that started last night. She started having a cough and sore throat. She felt very chilled last night. She did not check her temperature at home. She denies nasal congestion. Her cough is nonproductive. She then developed chest pain. She has a history of coronary artery disease and has had a heart attack in the past. She does continue to smoke. She did not get a flu shot this year. She did nothing for her symptoms last night or today. Physical Examination: Vital signs reviewed. HEENT exam does show posterior oropharyngeal erythema. Heart is tachycardic and regular rhythm without murmurs. Lungs are clear to auscultation. Abdomen is soft and nontender. Extremities reveal no edema. Peripheral pulses are equal. Skin exam normal. Neurologic exam normal. Test Results: EKG is sinus rhythm with nonspecific changes. Heart rate 107. Chest x-ray unremarkable. White blood cell count 13.6. Troponin normal. Influenza negative Emergency Department Course and Treatment: Patient likely has a viral etiology for her symptoms. I do not feel is cardiac in nature. Patient will be treated with Mucinex D at home. She will follow-up with her PCP Treatment Plan: [] Disposition: Discharge Impression: URI This note was generated with [employer] dictation software. It may contain incorrect words, spelling, and punctuation that were not noted in review of the chart prior to signing ED Disposition - Plan for ED Patient: Chief Complaint: Cold Sx Referrals: Bennett Blandon DO [Primary Care Provider] -
[2018-11-02 12:14] LABS: Absolute Neutrophil Count 10.5 X10^3/uL (2.0-7.7); Basophil# 0.01 X10^3/uL; Basophil% 0.1 % (0-1); Eosinophil# 0.05 X10^3/uL; Eosinophils% 0.4 % (0-5); Hemoglobin 13.3 g/dl (12.0-15.0); Mean Corp Hgb Conc 33.3 g/gl (32-36); Mean Corpuscular Hgb 31.2 pg (27.0-32.0); Mean Corpuscular Volume 93.9 fL (81-99); Mean Platelet Vol. 8.7 fl (6.2-12.0); Monocyte# 1.09 X10^3/uL; Neutrophil # 10.53 X10^3/uL (2.7-7.7); Neutrophil % 77.3 % (47-70); Platelet Count 240 K/mm3 (150-450); RBC Distribution Width CV 13.2 % (11.6-14.6); RBC Distribution Width SD 45.2 fl (35.1-43.9); Red Blood Count 4.26 M/mm3 (4.2-5.4); White Blood Count 13.6 K/mm3 (4.4-11.0)
[2018-11-02 12:15] LABS: POSITIVE COUNT NO; POSITIVE DIFFERENTIAL NO; POSITIVE MORPHOLOGY NO
[2018-11-02 12:31] LABS: Anion Gap 8 (5-15); BUN 7 mg/dL (7-18); Calcium,Total 8.4 mg/dL (8.5-10.1); Chloride 105 mmol/L (98-107); Creatinine, Serum 0.78 mg/dL (0.55-1.02); EST Glomerular Filtration Rate 86 mL/min (>60); Est Glom Filt Rate - Afr Amer 104 mL/min (>60); Estimated Creatinine Clearance 72.79 ml/min; Glucose 95 mg/dL (74-106); Potassium 3.5 mmol/L (3.5-5.1); Sodium Level 139 mmol/L (136-145)
[2018-11-02] MEDS: Aspirin 81 MG TAB.CHEW 324 MG PO (12:52)
[2018-11-02 13:02] VITALS: O2SAT 94
--- NOTE | 2018-11-02 13:15 | ED.DEP ---
ED Disposition - Plan for ED Patient: Disposition: Home or Assisted Living Chief Complaint: Cold Sx Instructions: ED Upper Resp Infec No Abx Tx Prescriptions: Guaifenesin/Pseudoephedrne HCl [Mucinex D ER Tablet] 1 ea PO BID #14 [id number] Referrals: Bennett Blandon DO [Primary Care Provider] -
[2018-11-02 13:34] VITALS: BP 113/81; PULSE 105; RESP 21; O2SAT 97
== END 2018-11-02 13:36 | disposition home or self-care (01) ==
PROVIDERS: Emergency Provider Emergency Medicine; Family Provider Family Medicine; PCP Family Medicine
DX: J06.9 Acute upper respiratory infection, unspecified (principal); I25.10 Atherosclerotic heart disease of native coronary artery without angina pectoris; I25.2 Old myocardial infarction; Z72.0 Tobacco use
CPT/HCPCS: 71045; 80048; 84484; 85025; 87804; 93005; 99284; A4216

== ENCOUNTER 2018-11-06 09:43 | Emergency (ER) | payer MEDICAID, SELFPAY ==
[2017-12-03 11:54] VITALS: BMI 23.6
[2018-11-06 09:43] VITALS: BP 159/84; PULSE 104; RESP 16; TEMP 36.3; O2SAT 93; BMI 25.0
--- NOTE | 2018-11-06 09:53 | RAD_ITS ---
STUDY: X-RAY CHEST REASON FOR EXAM: Female, 43 years old. Cough. Shortness of breath and chills. Generalized illness. TECHNIQUE: PA and lateral views of the chest. COMPARISON: Comparison is made with prior study dated November 02, 2018. FINDINGS: There now is evidence of increased markings in the right middle lobe suggestive of early infiltrate. Radiographic follow-up is recommended. There is no demonstrated pleural abnormality. Normal size heart. Normal mediastinum and kt. Normal visualized pulmonary arteries. Normal visualized aortic arch and descending thoracic aorta. Normal visualized thoracic spine. Normal visualized ribs, clavicles, and shoulders. There is no demonstrated abnormality of the visualized soft tissue structures of the upper abdomen. RAD/Chest PA and Lateral IMPRESSION: Findings suggestive of a early infiltrate in the right middle lobe. Follow-up is recommended. Electronically Signed: Rodney Saleh MD at 10:59 EST Tel [phone], Service support ,
--- NOTE | 2018-11-06 09:54 | EKG12_ITS ---
Test Reason : SOB Blood Pressure : / mmHG Vent. Rate : 098 BPM Atrial Rate : 098 BPM P-R Int : 114 ms QRS Dur : 074 ms QT Int : 308 ms P-R-T Axes : 075 -18 -47 degrees QTc Int : 393 ms Normal sinus rhythm Nonspecific ST and T wave abnormality Abnormal ECG Confirmed by LAURIE ANGELA, JOSE DE JESUS ([id number]), medical transcription editor BIRDIE JEFFREY ([id number]) on 11/08/2018 2:35:23 PM Referred By: SUNG Confirmed By:JOSE DE JESUS SULLIVAN MD
[2018-11-06 10:07] VITALS: PULSE 110; RESP 18
[2018-11-06] MEDS: Ipratropium/Albuterol Sulfate 3 ML AMPUL.NEB INHALATION (10:07)
[2018-11-06] MEDS: Triamcinolone Acetonide 40 MG/ML Vial IM (10:16)
[2018-11-06 10:24] LABS: Absolute Lymphocyte Count 2.18 X10^3/ul (0.83-4.51); Absolute Neutrophil Count 10.1 X10^3/uL (2.0-7.7); Basophil# 0.04 X10^3/uL; Basophil% 0.3 % (0-1); Eosinophil# 0.07 X10^3/uL; Eosinophils% 0.5 % (0-5); Hematocrit 36.3 % (37-47); Lymphocyte # 2.18 X10^3/ul (4.0); Lymphocyte % 15.8 % (19-41); Mean Corp Hgb Conc 33.1 g/gl (32-36); Mean Corpuscular Hgb 31.5 pg (27.0-32.0); Mean Corpuscular Volume 95.3 fL (81-99); Monocyte% 10.2 % (0-10); Neutrophil # 10.05 X10^3/uL (2.7-7.7); POSITIVE COUNT NO; POSITIVE DIFFERENTIAL NO; POSITIVE MORPHOLOGY NO; Platelet Count 271 K/mm3 (150-450); RBC Distribution Width CV 13.2 % (11.6-14.6); RBC Distribution Width SD 44.3 fl (35.1-43.9); Red Blood Count 3.81 M/mm3 (4.2-5.4); White Blood Count 13.8 K/mm3 (4.4-11.0)
[2018-11-06 10:39] LABS: Anion Gap 9 (5-15); BUN 8 mg/dL (7-18); BUN/Creat Ratio 12.2 RATIO (10-20); Calcium,Total 8.7 mg/dL (8.5-10.1); Chloride 107 mmol/L (98-107); Creatinine, Serum 0.66 mg/dL (0.55-1.02); EST Glomerular Filtration Rate 104 mL/min (>60); Est Glom Filt Rate - Afr Amer 125 mL/min (>60); Estimated Creatinine Clearance 86.03 ml/min; Glucose 91 mg/dL (74-106); Potassium 3.4 mmol/L (3.5-5.1); Sodium Level 141 mmol/L (136-145)
[2018-11-06 12:24] VITALS: BP 123/80; PULSE 103; RESP 20; O2SAT 90
[2018-11-06 12:28] VITALS: O2SAT 90
[2018-11-06] MEDS: Benzonatate 100 MG Capsule 200 MG PO (12:32)
--- NOTE | 2018-11-06 13:09 | ED.VISSUMM ---
- ER Visit Summary Date of Service: 11/06/18 Chief Complaint: Short of breath History of Present Illness: The patient is a 43 F with a history of COPD and coronary disease et al. she presents today with shortness of breath that has been getting worse for several days. She was seen in this emergency department days ago. Her flu test was negative. She was treated with Mucinex and discharged. She denies any sputum or fevers. No chest pain. She is a smoker and uses marijuana. Physical Examination: Afebrile. Heart rate 104 and pulse ox 93% on room air. Patient appears uncomfortable but not objectively short of breath. Speaking in full sentences and sitting comfortably. Heart is slightly tachycardic but regular. Patient has expiratory wheeze in all stanley. Extremities nontender with no edema. Test Results: EKG showed sinus rhythm at a rate of 98. No sign of ischemia or infarction. Chest x-ray showed a possible early right middle lobe infiltrate. White count 13.8, potassium 3.4. Troponin normal. Emergency Department Course and Treatment: Treat with a DuoNeb and Kenalog. She felt better after treatment and would like to go home. Her pulse ox remains borderline in the low 90s. Her heart rate is around 100. She does meet sepsis criteria. Risks were discussed. Patient will be treated with doxycycline. She also was given a prescription for DuoNeb. Patient was advised that her condition could worsen and she could require inpatient care and oxygen. She should return right away for any new or worsening issues. She voiced understanding and agreement. Treatment Plan: As above Disposition: Discharge Impression: 1. Community acquired pneumonia 2. COPD This note was generated with [employer] software. It may contain incorrect words, spelling, and punctuation that were not noted in review of the chart prior to signing ED Disposition - Plan for ED Patient: Chief Complaint: Shortness of Breath Referrals: Bennett Blandon, [Primary Care Provider] -
--- NOTE | 2018-11-06 13:11 | ED.DEP ---
ED Disposition - Plan for ED Patient: Chief Complaint: Shortness of Breath Instructions: ED Pneumonia Adult Prescriptions: Ipratropium/Albuterol Sulfate [Duoneb] 3 ml INHALATION Q6H PRN PRN #30 ampul.neb PRN Reason: Wheezing Doxycycline 100 mg PO BID 10 Days #20 cap Referrals: Bennett Blandon DO [Primary Care Provider] -
[2018-11-06] MEDS: Doxycycline 100 MG CAPSULE PO (13:13)
[2018-11-06 13:21] VITALS: PULSE 98; RESP 20; TEMP 38.4; O2SAT 92
== END 2018-11-06 13:21 | disposition home or self-care (01) ==
LOC: ED 09:57
PROVIDERS: Emergency Provider Emergency Medicine; Family Provider Family Medicine; PCP Family Medicine
DX: J18.9 Pneumonia, unspecified organism (principal); J44.9 Chronic obstructive pulmonary disease, unspecified; I25.10 Atherosclerotic heart disease of native coronary artery without angina pectoris; I10 Essential (primary) hypertension; E78.00 Pure hypercholesterolemia, unspecified; I25.2 Old myocardial infarction; Z72.0 Tobacco use; Z95.5 Presence of coronary angioplasty implant and graft
CPT/HCPCS: 71046; 80048; 84484; 85025; 93005; 94640; 96372; 99283; A4216

== ENCOUNTER 2018-11-26 11:51 | Emergency (ER) | payer MEDICAID, SELFPAY ==
[2017-12-03 11:54] VITALS: BMI 23.6
[2018-11-20 13:03] VITALS: BMI 25.0
[2018-11-26] VITALS (8 sets, daily range): BP systolic 94–117; BP diastolic 61–74; PULSE 83–106; RESP 16–27; TEMP 36.9–39.4; O2SAT 89–100; BMI 24.7
--- NOTE | 2018-11-26 12:11 | EKG12_ITS ---
Test Reason : SOB Blood Pressure : / mmHG Vent. Rate : 097 BPM Atrial Rate : 097 BPM P-R Int : 114 ms QRS Dur : 066 ms QT Int : 306 ms P-R-T Axes : 067 -29 -18 degrees QTc Int : 388 ms Normal sinus rhythm Nonspecific ST and T wave abnormality Abnormal ECG Confirmed by LAURIE ANGELA, JOSE DE JESUS ([id number]), video news editor BIRDIE JEFFREY ([id number]) on 11/29/2018 2:18:32 PM Referred By: SUNG Confirmed By:JOSE DE JESUS SULLIVAN MD
[2018-11-26] MEDS: Ipratropium/Albuterol Sulfate 3 ML AMPUL.NEB INHALATION (12:29)
[2018-11-26] MEDS: Acetaminophen 500 MG Tablet 1000 MG PO (12:29)
[2018-11-26] MEDS: Ondansetron 4 MG/2 ML Vial IV (12:29)
[2018-11-26 12:44] LABS: Absolute Lymphocyte Count 0.88 X10^3/ul (0.83-4.51); Absolute Neutrophil Count 3.1 X10^3/uL (2.0-7.7); Basophil# 0.01 X10^3/uL; Basophil% 0.2 % (0-1); Hematocrit 41.1 % (37-47); Hemoglobin 13.3 g/dl (12.0-15.0); Lymphocyte # 0.88 X10^3/ul (4.0); Lymphocyte % 17.9 % (19-41); Mean Corp Hgb Conc 32.4 g/gl (32-36); Mean Corpuscular Hgb 31.2 pg (27.0-32.0); Mean Corpuscular Volume 96.5 fL (81-99); Monocyte% 18.3 % (0-10); Neutrophil # 3.11 X10^3/uL (2.7-7.7); Neutrophil % 63.4 % (47-70); Platelet Count 216 K/mm3 (150-450); RBC Distribution Width SD 52.6 fl (35.1-43.9); Red Blood Count 4.26 M/mm3 (4.2-5.4); White Blood Count 4.9 K/mm3 (4.4-11.0)
[2018-11-26 12:45] LABS: POSITIVE COUNT NO; POSITIVE DIFFERENTIAL NO; POSITIVE MORPHOLOGY NO
--- NOTE | 2018-11-26 12:50 | RAD_ITS ---
STUDY: X-RAY CHEST REASON FOR EXAM: Female, 43 years old. Cough and fever. TECHNIQUE: Single AP portable view of the chest. COMPARISON: Comparison is made with prior study dated November 06, 2018. FINDINGS: EKG electrodes are seen. The lungs are clear and expanded. Scattered calcified granulomas. There is no demonstrated pleural abnormality. Normal size heart. Normal mediastinum and kt. Normal visualized pulmonary arteries. Normal visualized aortic arch and descending thoracic aorta. Normal visualized thoracic spine. Normal visualized ribs, clavicles, and shoulders. There is no demonstrated abnormality of the visualized soft tissue structures of the upper abdomen. RAD/Chest 1 View (Portable) IMPRESSION: Normal x-ray examination of the chest. Electronically Signed: Rodney Saleh MD at 13:07 EST Tel [phone], Service support ,
[2018-11-26 12:53] LABS: Color, Urine Yellow (Yellow); Glucose, Dipstick Normal (Normal); Ketone-Dipstick 5 mg/dl (Negative); Leukocyte Esterase-Dipstick 500 /ul (Negative); Nitrite-Dipstick Negative (Negative); Occult Blood-Urine 50 /ul (Negative); Protein-Dipstick 30 mg/dl (Negative); Red Blood Cells-Urine 0 SEEN /hpf (0-5); Urine Bilirubin Dipstick Negative (Negative); Urine Clarity Cloudy (Clear); Urine Urobilinogen Normal (Normal)
[2018-11-26 12:56] LABS: International Normalized Ratio 0.9; Prothrombin Time (Protime)PT. 12.6 SECONDS (11.7-14.9)
[2018-11-26 12:57] LABS: Partial Thromboplast Time 32.6 Seconds (24.1-36.2)
[2018-11-26 13:00] LABS: Lactic Acid 1.2 mmol/L (0.4-2.0)
[2018-11-26 13:00] LABS: Bacteria 2+ /hpf (None Seen); Mucous, Urine 2+ /hpf (<or=2+); Squamous Epithelial Cells - UA 0-5 SEEN /hpf (5-10); White Blood Cells 10-25 SEEN /hpf (0-5)
[2018-11-26 13:03] LABS: AST(SGOT) 23 U/L (15-37); Alanine Aminotransfer ALT/SGPT 24 U/L (13-56); Albumin, Serum 3.8 g/dL (3.2-5.0); Alkaline Phosphatase 154 U/L (45-117); Anion Gap 10 (5-15); BUN 16 mg/dL (7-18); BUN/Creat Ratio 18.4 RATIO (10-20); Chloride 104 mmol/L (98-107); Creatinine, Serum 0.87 mg/dL (0.55-1.02); EST Glomerular Filtration Rate 75 mL/min (>60); Est Glom Filt Rate - Afr Amer 91 mL/min (>60); Estimated Creatinine Clearance 65.26 ml/min; Glucose 118 mg/dL (74-106); Potassium 3.8 mmol/L (3.5-5.1); Protein, Total 7.8 g/dL (6.4-8.2); Sodium Level 136 mmol/L (136-145)
--- NOTE | 2018-11-26 14:14 | ED.VISSUMM ---
- ER Visit Summary Date of Service: 11/26/18 Chief Complaint: Cough History of Present Illness: The patient is a 43 F with a cough for 2 days. The patient had a recent episode of pneumonia and completed her antibiotic treatment. She is currently taking breathing treatments at home. She is not currently on steroids or antibiotics. She does not use home oxygen. She has a history of COPD and LA. She is not having chest pain. She does report fevers and mild shortness of breath. No history of DVT or PE. She takes aspirin and Plavix but no other blood thinners. Physical Examination: Patient has a fever and a heart rate of 106. Respiratory rate 20. Alert and oriented, sitting comfortably. Speaking in full sentences. HEENT exam unremarkable. Lungs show wheezing in all stanley with expiration. Heart tachycardic but regular. Abdomen soft and nontender. Skin unremarkable. Test Results: Chest x-ray showed sinus rhythm at a rate of [address] and T wave changes. No sign of acute ischemia or infarction pattern. Chest x-ray was normal. CBC normal. Chemistry panel unremarkable. Coags normal. Lactate normal. Troponin normal. Urinalysis showed signs of infection. Cultures pending. Influenza test negative. Emergency Department Course and Treatment: Patient treated with DuoNeb and Zofran and Tylenol while awaiting results. Her workup shows a UTI. She does have sepsis criteria but no leukocytosis. She does not have any signs of pneumonia. Patient does not have severe sepsis or shock. Patient is requesting to go home. Her vital signs have improved. She has no red flag features. Risks were discussed. She was treated with Keflex to cover her UTI. Tessalon for cough. She has breathing treatments. She is not able to take steroids because of side effects. Patient was advised that she may worsen. Return for new or worsening issues. Otherwise, follow-up with primary care. Treatment Plan: As above Disposition: Discharge Impression: 1. Bronchitis 2. UTI This note was generated with [employer] software. It may contain incorrect words, spelling, and punctuation that were not noted in review of the chart prior to signing ED Disposition - Plan for ED Patient: Chief Complaint: Fever Referrals: Bennett Blandon DO [Primary Care Provider] -
--- NOTE | 2018-11-26 14:17 | ED.DCSUM_ITS ---
- ER Visit Summary Date of Service: 11/26/18 Chief Complaint: Cough History of Present Illness: The patient is a 43 F with a cough for 2 days. The patient had a recent episode of pneumonia and completed her antibiotic treatment. She is currently taking breathing treatments at home. She is not currently on steroids or antibiotics. She does not use home oxygen. She has a history of COPD and VT. She is not having chest pain. She does report fevers and mild shortness of breath. No history of DVT or PE. She takes aspirin and Plavix but no other blood thinners. Physical Examination: Patient has a fever and a heart rate of 106. Respiratory rate 20. Alert and oriented, sitting comfortably. Speaking in full sentences. HEENT exam unremarkable. Lungs show wheezing in all stanley with expiration. Heart tachycardic but regular. Abdomen soft and nontender. Skin unremarkable. Test Results: Chest x-ray showed sinus rhythm at a rate of [address] and T wave changes. No sign of acute ischemia or infarction pattern. Chest x-ray was normal. CBC normal. Chemistry panel unremarkable. Coags normal. Lactate normal. Troponin normal. Urinalysis showed signs of infection. Cultures pending. Influenza test negative. Emergency Department Course and Treatment: Patient treated with DuoNeb and Zofran and Tylenol while awaiting results. Her workup shows a UTI. She does have sepsis criteria but no leukocytosis. She does not have any signs of pneumonia. Patient does not have severe sepsis or shock. Patient is requesting to go home. Her vital signs have improved. She has no red flag features. Risks were discussed. She was treated with Keflex to cover her UTI. Tessalon for cough. She has breathing treatments. She is not able to take steroids because of side effects. Patient was advised that she may worsen. Return for new or worsening issues. Otherwise, follow-up with primary care. Treatment Plan: As above Disposition: Discharge Impression: 1. Bronchitis 2. UTI This note was generated with [employer] software. It may contain incorrect words, spelling, and punctuation that were not noted in review of the chart prior to signing ED Disposition - Plan for ED Patient: Chief Complaint: Fever Referrals: Bennett Blandon DO [Primary Care Provider] -
--- NOTE | 2018-11-26 14:17 | ED.DEP ---
ED Disposition - Plan for ED Patient: Chief Complaint: Fever Instructions: Acute Bronchitis, ED UTI Cystitis Female Prescriptions: Ibuprofen [Motrin] 600 mg PO Q8H PRN PRN #30 tab PRN Reason: Fever Acetaminophen 1,000 mg PO TID PRN PRN #20 tab PRN Reason: Fever Cephalexin [Keflex] 500 mg PO Q6 #40 cap Referrals: Bennett Blandon DO [Primary Care Provider] -
[2018-11-26] MEDS: Cephalexin 250 MG Capsule 500 MG PO (14:27)
== END 2018-11-26 14:43 | disposition home or self-care (01) ==
LOC: ED 13:15
PROVIDERS: Emergency Provider Emergency Medicine; Family Provider Family Medicine; PCP Family Medicine
DX: J40 Bronchitis, not specified as acute or chronic (principal); N39.0 Urinary tract infection, site not specified; J44.9 Chronic obstructive pulmonary disease, unspecified; I25.2 Old myocardial infarction; Z72.0 Tobacco use
CPT/HCPCS: 71045; 80053; 81001; 83605; 84484; 85025; 85610; 85730; 87040; 87086; 87088; 87804; 93005; 94640; 96374; 99285; J2405

== ENCOUNTER → 2019-01-01 10:39 | Outpatient (CLI) | payer MEDICAID, SELFPAY ==
[2017-12-03 11:54] VITALS: BMI 23.6
[2018-12-31 15:52] VITALS: BMI 25.6
[2019-01-01 12:47] LABS: Erythrocyte Sedimentation Rate 23 mm/hr (0-20)
[2019-01-01 13:00] LABS: AST(SGOT) 14 U/L (15-37); Alanine Aminotransfer ALT/SGPT 23 U/L (13-56); Albumin, Serum 3.4 g/dL (3.2-5.0); Alkaline Phosphatase 141 U/L (45-117); Bilirubin, Direct 0.09 mg/dL (0.00-0.30); Cholesterol 248 mg/dL (200); High Density Lipoprotein 62 mg/dL; Protein, Total 7.4 g/dL (6.4-8.2); Triglycerides 121 mg/dL; Very Low Density Lipoprotein 24 mg/dL (5-40)
[2019-01-01 13:19] LABS: CRP 9.34 mg/L (0.0-3.0); Rheumatoid Factor < 10.0 IU/mL (<15)
[2019-01-03 08:13] LABS: CCP IgG Antibodies 10 units (0-19)
[2019-01-03 10:06] LABS: ANTINUCLEAR ANTIBODIES DIRECT Negative (Negative)
== END ==
PROVIDERS: Internal Medicine Cardiovascular Disease; Family Provider Family Medicine; PCP Family Medicine; Visit Provider Nurse Practitioner Family
DX: M25.50 Pain in unspecified joint (principal); I25.10 Atherosclerotic heart disease of native coronary artery without angina pectoris; E78.5 Hyperlipidemia, unspecified
CPT/HCPCS: 36415; 80061; 80076; 85652; 86038; 86140; 86200; 86225; 86235; 86431

== ENCOUNTER → 2019-04-04 08:40 | Outpatient (CLI) | payer MEDICAID, SELFPAY ==
[2017-12-03 11:54] VITALS: BMI 23.6
[2019-04-03 15:22] VITALS: BMI 25.6
[2019-04-04 12:40] LABS: Absolute Lymphocyte Count 1.65 X10^3/ul (0.83-4.51); Absolute Neutrophil Count 3.7 X10^3/uL (2.0-7.7); Basophil# 0.01 X10^3/uL; Basophil% 0.2 % (0-1); Eosinophil# 0.23 X10^3/uL; Eosinophils% 3.6 % (0-5); Hematocrit 41.8 % (37-47); Hemoglobin 11.9 g/dl (12.0-15.0); Lymphocyte # 1.65 X10^3/ul (4.0); Lymphocyte % 25.5 % (19-41); Mean Corp Hgb Conc 28.5 g/gl (32-36); Mean Corpuscular Hgb 27.4 pg (27.0-32.0); Mean Corpuscular Volume 96.1 fL (81-99); Mean Platelet Vol. 9.4 fl (6.2-12.0); Monocyte# 0.88 X10^3/uL; Monocyte% 13.6 % (0-10); Neutrophil # 3.69 X10^3/uL (2.7-7.7); Neutrophil % 56.9 % (47-70); Platelet Count 246 K/mm3 (150-450); RBC Distribution Width CV 13.4 % (11.6-14.6); RBC Distribution Width SD 45.5 fl (35.1-43.9); Red Blood Count 4.35 M/mm3 (4.2-5.4); White Blood Count 6.5 K/mm3 (4.4-11.0)
[2019-04-04 12:46] LABS: POSITIVE COUNT NO; POSITIVE DIFFERENTIAL NO; POSITIVE MORPHOLOGY NO
[2019-04-04 12:50] LABS: AST(SGOT) 17 U/L (15-37); Alanine Aminotransfer ALT/SGPT 25 U/L (13-56); Albumin, Serum 3.5 g/dL (3.2-5.0); Alkaline Phosphatase 161 U/L (45-117); Anion Gap 5 (5-15); BUN 7 mg/dL (7-18); BUN/Creat Ratio 9.7 RATIO (10-20); Calcium,Total 8.6 mg/dL (8.5-10.1); Chloride 111 mmol/L (98-107); Creatinine, Serum 0.72 mg/dL (0.55-1.02); EST Glomerular Filtration Rate 94 mL/min (>60); Est Glom Filt Rate - Afr Amer 113 mL/min (>60); Globulin 3.5 g/dL (2.2-4.2); Glucose 83 mg/dL (74-106); Sodium Level 142 mmol/L (136-145)
== END ==
PROVIDERS: Family Provider Family Medicine; PCP Family Medicine; Visit Provider Family Medicine
DX: J44.9 Chronic obstructive pulmonary disease, unspecified (principal); R53.83 Other fatigue
CPT/HCPCS: 36415; 80053; 85025

== ENCOUNTER → 2020-06-29 | Outpatient (CLI) | payer MEDICAID, SELFPAY ==
[2017-12-03 11:54] VITALS: BMI 23.6
[2020-06-14 10:50] VITALS: BMI 26.6
[2020-06-29 11:28] LABS: AST(SGOT) 16 U/L (15-37); Alanine Aminotransfer ALT/SGPT 19 U/L (13-56); Albumin, Serum 3.6 g/dL (3.2-5.0); Alkaline Phosphatase 168 U/L (45-117); Bilirubin, Direct 0.15 mg/dL (0.00-0.30); Cholesterol 156 mg/dL (200); Globulin 3.5 g/dL (2.2-4.2); High Density Lipoprotein 43 mg/dL; Protein, Total 7.1 g/dL (6.4-8.2); Triglycerides 136 mg/dL; Very Low Density Lipoprotein 27 mg/dL (5-40)
== END | disposition home or self-care (01) ==
LOC: LAB 09:50
PROVIDERS: PCP Family Medicine; Referring Provider Internal Medicine Cardiovascular Disease; Visit Provider Internal Medicine Cardiovascular Disease
DX: E78.5 Hyperlipidemia, unspecified (principal); I25.10 Atherosclerotic heart disease of native coronary artery without angina pectoris
CPT/HCPCS: 36415; 80061; 80076

== ENCOUNTER → 2020-07-01 | Outpatient (CLI) | payer MEDICAID, SELFPAY ==
[2017-12-03 11:54] VITALS: BMI 23.6
[2020-06-14 10:50] VITALS: BMI 26.6
--- NOTE | 2020-07-01 09:04 | ECHOD_ITS ---
Reason For Study: CHF Procedure This was a 2D Doppler, Color Flow transthoracic echocardiogram. Exam performed in department. Left Ventricle Normal size and thickness. The estimated ejection fraction is 65 %. Stage 1 diastolic dysfunction. No regional wall motion abnormalities noted. Right Ventricle Normal size and thickness. Normal systolic function. Atria Normal left atrium. Normal right atrium. Normal atrial septum. Mitral Valve The mitral valve is structurally normal. No prolapse or stenosis seen. Trivial mitral valve insufficiency. Tricuspid Valve Normal tricuspid valve. Trivial tricuspid valve insufficiency. Right ventricular systolic pressure estimated to be 34 mmHg. Aortic Valve Normal aortic valve. Trisinus/trileaflet aortic valve. Pulmonic Valve Normal pulmonic valve. Great Vessels Normal aortic root. Normal arch. Normal inferior vena cava. Inferior vena cava collapse with sniff. Pericardium/Pleural No pericardial effusion. MMode/2D Measurements & Calculations LVIDd: 4.8 cm IVSd: 0.66 cm Ao root diam: 2.8 cm LVIDs: 3.4 cm LVPWd: 0.85 cm RVDd: 2.5 cm FS: 29.1 % LAV(MOD-bp): 31.9 ml LVAd ap4: 22.1 cm2 SV(MOD-sp4): 39.8 ml LAV(MOD-bp) Indexed: 19.4 ml/m2 EDV(MOD-sp4): 56.8 ml LAV(MOD-sp2): 26.8 ml EDV(sp4-el): 58.6 ml LAV(MOD-sp4): 33.1 ml LVAs ap4: 10.8 cm2 ESV(MOD-sp4): 16.9 ml ESV(sp4-el): 16.4 ml EF(MOD-sp4): 70.2 % EF(sp4-el): 72.1 % SV(sp4-el): 42.3 ml LA A4 area: 14.1 cm2 LA dimension(2D): 2.6 cm RA A4 area: 10.7 cm2 Doppler Measurements & Calculations MV E max david: 60.5 cm/sec Lat Peak E' David: 8.3 cm/sec Med Peak E' David: 8.7 cm/sec MV A max david: 96.3 cm/sec E/E' lat: 7.3 E/E' med: 6.9 MV E/A: 0.63 Ao V2 max: 114.7 cm/sec LV V1 max: 95.0 cm/sec PA V2 max: 96.3 cm/sec Ao max P.3 mmHg LV V1 max P.6 mmHg TR max david: 270.4 cm/sec TR max P.3 mmHg Interpretation Summary The estimated ejection fraction is 65 %. Stage 1 diastolic dysfunction. Trivial mitral valve insufficiency. Trivial tricuspid valve insufficiency. Right ventricular systolic pressure estimated to be 34 mmHg. There is no comparison study available. Ordering Physician: Mat Alonso Referring Physician: Delonte Blnadon M.D. Performed By: Ciera Morales RDCS
== END | disposition home or self-care (01) ==
LOC: CVS 09:04
PROVIDERS: PCP Family Medicine; Referring Provider Internal Medicine Cardiovascular Disease; Visit Provider Internal Medicine Cardiovascular Disease
DX: I25.10 Atherosclerotic heart disease of native coronary artery without angina pectoris (principal); I25.5 Ischemic cardiomyopathy; E78.5 Hyperlipidemia, unspecified; I11.0 Hypertensive heart disease with heart failure; I50.9 Heart failure, unspecified
CPT/HCPCS: 93306

== ENCOUNTER → 2020-07-05 | Outpatient (CLI) | payer MEDICAID, SELFPAY ==
[2017-12-03 11:54] VITALS: BMI 23.6
[2020-06-14 10:50] VITALS: BMI 26.6
--- NOTE | 2020-07-05 09:24 | STEWCON_ITS ---
Reason For Study: CAD, Chest Pain Stress Results Protocol: Dobutamine Stress Echo With Definity Maximum Predicted HR: 175 bpm Target HR: 149 bpm % Maximum Predicted HR: 83 % DurationHeart Rate Stage (mm:ss) (bpm) BP Comment Baseline 83 122/75No Chest Pain; 5 ML Diluted Definity DSE 10 MCG 3:45 89 123/72No Chest Pain DSE 20 MCG 3:03 123 134/70No Chest Pain DSE 30 MCG 3:00 141 140/76No Chest Pain DSE 40 MCG 3:50 146 141/79No Chest Pain Recovery 99 133/77No Chest Pain Stress Duration: 13:38 mm:ss Maximum Stress HR: 146 bpm METS: 1 Baseline Echocardiogram Findings The estimated ejection fraction is 65 %. Stress Echo Wall motion Data Resting WM Intermediate WM Stress WM Resting Wall Motion Wall Motion Stress No regional wall motion No regional wall motion abnormalities noted. abnormalities noted. EKG Data The baseline ECG displays normal sinus rhythm. The patient was titrated from 10 mcg to a maximum of 40 mcg of dobutamine during the stress. The maximum heart rate attained was 153 beats per minute. This was 87% of maximum predicted heart rate. During dobutamine infusion, there were no ST or T wave changes noted to suggest ischemia. No clinical angina was noted. Interpretation Summary The estimated ejection fraction is 65 %. Normal, adequate, dobutamine echocardiogram. Negative for ischemia by EKG and echocardiographic criteria. No anginal symptoms noted. Rare PACs and PVCs noted. Appropriate blood pressure response to dobutamine. Test terminated with attainment target heart rate. Final LVEF is 75%. Decrease sensitivity due to poor echo windows requiring Definity agent. Patient tolerated procedure well. No complications. The study was technically difficult. Contrast injection was performed. Ordering Physician: Mat Alonso Referring Physician: Bennett Blandon Performed By: Kathi Garvin, NICK, RVT
== END | disposition home or self-care (01) ==
LOC: CVS 09:24
PROVIDERS: PCP Family Medicine; Referring Provider Internal Medicine Cardiovascular Disease; Visit Provider Internal Medicine Cardiovascular Disease
DX: I25.10 Atherosclerotic heart disease of native coronary artery without angina pectoris (principal); R07.9 Chest pain, unspecified; I25.5 Ischemic cardiomyopathy
CPT/HCPCS: 93017; 93350; J7040; Q9957; A4216; C8928

== ENCOUNTER → 2020-11-04 14:01 | Outpatient (CLI) | payer MEDICAID, SELFPAY ==
[2017-12-03 11:54] VITALS: BMI 23.6
[2020-07-28 14:44] VITALS: BMI 26.6
--- NOTE | 2020-11-04 14:03 | RAD_ITS ---
STUDY: X-RAY CHEST REASON FOR EXAM: Female, 45 years old. SOB TECHNIQUE: PA and lateral views of the chest. COMPARISON: 11/26/2018 FINDINGS: The lungs are clear and expanded. There is no demonstrated pleural abnormality. Normal size heart. Normal mediastinum and kt. Normal visualized pulmonary arteries. Normal visualized aortic arch and descending thoracic aorta. Normal visualized thoracic spine. Normal visualized ribs, clavicles, and shoulders. There is no demonstrated abnormality of the visualized soft tissue structures of the upper abdomen. RAD/Chest PA and Lateral IMPRESSION: Normal x-ray examination of the chest. Electronically Signed: Aden Phelan MD at 14:21 EST Tel , Service support ,
== END ==
PROVIDERS: PCP Family Medicine; Visit Provider Internal Medicine
DX: R09.89 Other specified symptoms and signs involving the circulatory and respiratory systems (principal)
CPT/HCPCS: 71046

== ENCOUNTER → 2021-01-04 15:33 | Outpatient (CLI) | payer MEDICAID, SELFPAY ==
[2017-12-03 11:54] VITALS: BMI 23.6
[2021-01-04 11:10] VITALS: BMI 27.1
[2021-01-04 15:35] LABS: Bacteria 0 SEEN /hpf (None Seen); Red Blood Cells-Urine 0 SEEN /hpf (0-5)
[2021-01-04 17:53] LABS: Color, Urine Yellow (Yellow); Glucose, Dipstick Normal (Normal); Ketone-Dipstick 5 mg/dl (Negative); Leukocyte Esterase-Dipstick 500 /ul (Negative); Nitrite-Dipstick Negative (Negative); Occult Blood-Urine 10 /ul (Negative); Protein-Dipstick 15 mg/dl (Negative); Urine Bilirubin Dipstick Negative (Negative); Urine Clarity Sl. Cloudy (Clear); Urine Urobilinogen 1 mg/dl (Normal)
[2021-01-04 18:12] LABS: Mucous, Urine 1+ /hpf (<or=2+); Squamous Epithelial Cells - UA 0-5 SEEN /hpf (5-10); White Blood Cells 0-5 SEEN /hpf (0-5)
== END ==
PROVIDERS: PCP Family Medicine; Visit Provider Family Medicine
DX: R30.0 Dysuria (principal)
CPT/HCPCS: 81001; 87086; 87088

== ENCOUNTER 2021-02-18 05:15 | Emergency (ER) | payer MEDICAID, SELFPAY ==
[2017-12-03 11:54] VITALS: BMI 23.6
[2021-01-04 11:10] VITALS: BMI 27.1
[2021-02-18 05:16] VITALS: BP 134/69; PULSE 94; RESP 16; TEMP 36.6; O2SAT 93; BMI 27.1
--- NOTE | 2021-02-18 05:34 | RAD_ITS ---
HISTORY: cough sob copd EXAM: XR Chest 1 View: COMPARISON: November 04, 2020 FINDINGS: # of images incl. paperwork: 2 Calcific plaque within the aortic arch persists. Pulmonary hyperexpansion persists Lungs are clear. Heart is not enlarged. No acute osseous pathology perceived. Pulmonary vascularity is distinct. No effusions. RAD/Chest 1 View (Portable) IMPRESSION: No acute cardiopulmonary disease perceived. at 0637 Reported and signed by: Dalton Schuster MD Electronically Signed: Dalton Schuster MD at 6:36 EDT Tel , Service support ,
--- NOTE | 2021-02-18 05:38 | ED.DCSUM_ITS ---
History of Present Illness Chief Complaint: Sore Throat Detail of Chief Complaint: ST and SOB Informant: Patient Onset: Weeks - 2 Current Severity: Moderate Maximum Severity: Moderate Worsened by: - - swallowing Relieved by: Nothing Associated Symptoms: Cough. Negative for: Fever Chest Pain: Negative for: None Narrative: Patient presents with upper respiratory tract symptoms. She states she has had a sore throat for 2 weeks, her PCP initially prescribed her an antibiotic that she does not know the identity of, I did not help anything, she went to see urgent care yesterday and states they checked her urine is the only test, they prescribed her an antibiotic but then they called her later and change the antibiotic as a result of the urine test. She does not know what any of these antibiotics are, but after some trial and error we were able to figure out that the most recent one which she has yet to fill or take is doxycycline. She states she has been having some shortness of breath off-and-on for the past 3 days now. No other new symptoms. The shortness of breath is often exertional, and it is wheezing and she confirms that it feels like her COPD. She has oxygen at home if needed for her COPD, but she does not use it. She has duo-nebulizer vials for her nebulizer machine at home, but she is not using it for fear of becoming dependent on it. She did use her albuterol MDI however, prior to arrival here and states that it did help some. She denies any associated fevers, chills, loss of taste or smell, abdominal symptoms, chest discomfort, neck soreness, headache, vision changes, earache. She has had occasional myalgias but does not have them now. She denies contact with anyone that she knows of with COVID-19. She has not had COVID-19 for the last year. She also has not been vaccinated. When asked why, she is afraid that it is unsafe and states that it was rushed to market and not researched enough. - Past Medical History (1) Ischemic cardiomyopathy Status: Chronic (2) Atherosclerotic heart disease of [place] coronary artery without angina pectoris Status: Chronic Comment: PTCA/LIZETH of the mid LAD 2.5 x 20 mm Promus 12/03/17 (3) COPD (chronic obstructive pulmonary disease) Status: Chronic (4) Hyperlipidemia Status: Chronic (5) Hypertension Status: Chronic (6) Interstitial cystitis Status: Chronic (7) Nicotine dependence, cigarettes, uncomplicated Status: Chronic Past Medical History - Allergies and Home Meds Allergies/Adverse Reactions: Allergies Latex, Natural Rubber Allergy (Severe, Verified 01/04/21 11:14) hives nitrofurantoin [From Macrodantin] Allergy (Severe, Verified 01/04/21 11:14) Hives bupropion HCl [From Wellbutrin] Adverse Reaction (Verified 01/04/21 11:14) Other prednisone Adverse Reaction (Verified 01/04/21 11:14) Other Primary Care Physician: Bennett Blandon DO [Primary Care Provider] - 3-5 Days if not improving Surgical History: hysterectomy - with BL oophorectomy for cervical CA,, - - neurosurgery to repair a intracerebral aneurysm, left broken foot with pins Smoking Status: Current every day smoker - Family History Maternal Family History: Family History (Last Reviewed 01/04/21 @ 11:16 by Eusebia Alonso) Mother Myocardial infarction Diabetes Father Myocardial infarction Colon cancer Diabetes Grandmother CVA (cerebral vascular accident) Diabetes Family History: Reports: No pertinent history Review of Systems General: Denies: Chills, Fever, Sweats Eyes: Denies: Visual changes - bilaterally, Diplopia ENT: Reports: Sore throat. Denies: Bilateral ear pain, Rhinorrhea Cardiovascular: Denies: Chest pain, Palpitations Respiratory: Reports: Dyspnea, Cough, Sputum - Occasional, white or clear nonbloody, Dyspnea on exertion - Sometimes Gastrointestinal: Denies: Abdominal pain, Nausea, Vomiting, Diarrhea, Melena, Hematochezia Genitourinary: Denies: Dysuria, Hematuria, Frequency Musculoskeletal: Reports: Myalgias - Sometimes. Denies: Back pain, Swelling, Extremity Pain Skin: Denies: Rash, Wounds Neurological: Denies: Headache, Weakness, Numbness Physical Exam Vital Signs/Narrative: Vital Signs Temp Pulse Resp BP Pulse Ox 02/18/21 05:16 97.8 F 94 16 134/69 H 93 Inital Vital Signs reviewed: Yes General: Well nourished, Well developed, No Acute Distress - Conversive in full sentences, well-appearing Head: Normocephalic, Atraumatic Eyes: Perrl, EOMI ENT: Moist mucous membranes, No rhinorrhea, - - Posterior oropharyngeal erythema. No tonsillar asymmetry or exudates. No trismus. No thrush. Tongue normal. Neck: Supple, Nontender, No lymphadenopathy, No JVD Cardiovascular: Regular rate, Regular rhythm, No murmurs. Negative for: Tachycardia Respiratory: No distress, Chest nontender, Wheezing. Negative for: Rales, Rhonchi Abdomen: Soft, Nontender, Nondistended, Normal bowel sounds Back: Nontender, Normal Inspection. Negative for: CVA tenderness Extremities: Nontender, No edema. Negative for: Calf Tenderness Skin: Normal color, No rash, No Trauma Neurological: Alert, Oriented x3, Cranial nerves II-XII grossly intact, Normal Strength, Normal Sensation, Normal Gait Psychological: Normal affect, Normal Mood Diagnostic/Tx/Re-eval - Medical Decision Making Patient was offered a nebulizer treatment but she declined and states that she does not currently need 1. I advised a Covid test which she was amenable to. This will be sent as an outpatient since she is clinically well without hypoxemia and does not require admission. History and exam are consistent with a COPD exacerbation, the antibiotic will help prevent bacterial superinfection but may not cure her symptoms if she does not have bacterial etiology, which she probably does not. So I do think the antibiotic is appropriate in this context, and I recommend prednisone. She states she cannot take that because she is allergic to it; she gets severe leg pain. I told her so you are not allergic to it but you have unpleasant side effects so you do not want to take it. She confirms that is the case, and in addition she states that her symptoms are not severe enough to require nebulizer treatment right now, and she does not want prednisone for COPD right now. I advised her to reconsider getting a Covid vaccine since she will certainly benefit from it in my opinion. Her chest x-ray 1 view on my interpretation shows no acute infiltrates, there are chronic COPD changes. Patient discharged home to follow-up in stable condition. ED Disposition - Plan for ED Patient: Disposition: Home or Assisted Living Diagnosis: Viral URI with cough, COPD with acute exacerbation Instructions: ED COPD Flare Referrals: Bennett Blandon, [Primary Care Provider] - 3-5 Days if not improving
[2021-02-18 05:51] VITALS: BP 134/69; PULSE 94; RESP 16; O2SAT 93
== END 2021-02-18 05:52 | disposition home or self-care (01) ==
PROVIDERS: Emergency Provider Emergency Medicine; PCP Family Medicine
DX: J44.1 Chronic obstructive pulmonary disease with (acute) exacerbation (principal); J06.9 Acute upper respiratory infection, unspecified; I25.10 Atherosclerotic heart disease of native coronary artery without angina pectoris; E78.5 Hyperlipidemia, unspecified; I10 Essential (primary) hypertension; F17.200 Nicotine dependence, unspecified, uncomplicated; Z79.51 Long term (current) use of inhaled steroids; Z79.899 Other long term (current) drug therapy
CPT/HCPCS: 71045; 87635; 99282; U0002

== ENCOUNTER → 2021-08-04 | Outpatient (CLI) | payer MEDICAID, SELFPAY ==
[2017-12-03 11:54] VITALS: BMI 23.6
== END | disposition home or self-care (01) ==
LOC: LABSPEC 13:01
PROVIDERS: PCP Family Medicine; Referring Provider Physician Assistant; Visit Provider Physician Assistant
DX: Z11.52 Encounter for screening for COVID-19 (principal)
CPT/HCPCS: 87635; U0005; U0003

== ENCOUNTER → 2021-08-05 10:13 | Outpatient (CLI) | payer MEDICAID, SELFPAY ==
[2017-12-03 11:54] VITALS: BMI 23.6
== END ==
PROVIDERS: PCP Family Medicine; Referring Provider Nurse Practitioner Adult Health; Visit Provider Nurse Practitioner Adult Health
DX: R30.0 Dysuria (principal)
CPT/HCPCS: 87086; 87088

== ENCOUNTER → 2021-09-02 11:25 | Outpatient (CLI) | payer MEDICAID, SELFPAY ==
[2021-08-31 15:12] VITALS: BMI 23.6
--- NOTE | 2021-09-02 11:33 | RAD_ITS ---
STUDY: X-RAY CHEST REASON FOR EXAM: Female, 46 years old. COPD, SOB, cough TECHNIQUE: PA and lateral views of the chest. COMPARISON: 02/18/2021 FINDINGS: The lungs are clear and expanded. There is no demonstrated pleural abnormality. Normal size heart. Normal mediastinum and kt. Normal visualized pulmonary arteries. There is atherosclerotic calcification of the aortic arch with tortuosity. Normal visualized thoracic spine. Normal visualized ribs, clavicles, and shoulders. There is no demonstrated abnormality of the visualized soft tissue structures of the upper abdomen. RAD/Chest PA and Lateral IMPRESSION: Stable, nonacute x-ray examination of the chest. Electronically Signed: Isaiah Box MD ([place]) at 16:19 EDT , Service support ,
== END ==
PROVIDERS: PCP Family Medicine; Referring Provider Physician Assistant; Visit Provider Physician Assistant
DX: J44.9 Chronic obstructive pulmonary disease, unspecified (principal); R05.9 Cough, unspecified; R06.02 Shortness of breath
CPT/HCPCS: 71046

== ENCOUNTER 2021-09-18 10:34 | Emergency (ER) | payer MEDICAID, SELFPAY ==
[2021-08-31 15:12] VITALS: BMI 23.6
[2021-09-18 10:35] VITALS: BP 151/88; PULSE 90; RESP 15; TEMP 36.5; O2SAT 94; BMI 25.4
--- NOTE | 2021-09-18 10:46 | RAD_ITS ---
STUDY: X-RAY CHEST REASON FOR EXAM: Female, 46 years old. chest pain TECHNIQUE: Single AP portable view of the chest. COMPARISON: 09/02/2021 FINDINGS: The lungs are clear and expanded. There is no demonstrated pleural abnormality. Normal size heart. Normal mediastinum and kt. Normal visualized pulmonary arteries. Normal visualized aortic arch and descending thoracic aorta. Normal visualized thoracic spine. Normal visualized ribs, clavicles, and shoulders. There is no demonstrated abnormality of the visualized soft tissue structures of the upper abdomen. RAD/Chest 1 View (Portable) IMPRESSION: Normal x-ray examination of the chest. Electronically Signed: Aden Phelan MD at 11:43 EST Tel , Service support ,
--- NOTE | 2021-09-18 10:46 | EKG12_ITS ---
Test Reason : CP Blood Pressure : / mmHG Vent. Rate : 075 BPM Atrial Rate : 075 BPM P-R Int : 126 ms QRS Dur : 072 ms QT Int : 356 ms P-R-T Axes : 080 -10 010 degrees QTc Int : 397 ms Normal sinus rhythm with sinus arrhythmia Nonspecific T wave abnormality Abnormal ECG Confirmed by KASEY ANGELA, ETIENNE ([id number]), industrial editor ADDI MOREAU ([id number]) on 09/19/2021 11:04:04 AM Referred By: AMANDA/LAURA Confirmed By:ETIENNE PARKS MD
--- NOTE | 2021-09-18 10:47 | EDS_ITS ---
HPI History of Present Illness Chief Complaint: Chest Pain Informant: patient Narrative Narrative: 46-year-old female presents the emergency room with 5 days of chest pain. Patient notes a history of coronary artery disease and is on Plavix. She saw cardiology last in December of this year. She has appointment next month to be seen for her 6-month follow-up. She notes that she has developed a pain midsternal which she states is a burning pain that is made worse with certain foods like drinking pop. She is a smoker. She feels bloated and notes that she has chronic diarrhea. She denies any right upper quadrant pain. Pain does not radiate to the back. PFSH PFSH Medical History Arthritis Atherosclerotic heart disease of [place] coronary artery without angina pectoris Chest pain Chronic back pain COPD (chronic obstructive pulmonary disease) COPD (chronic obstructive pulmonary disease) history of intracerebral aneurysm Hyperlipidemia Hypertension Ischemic cardiomyopathy Non-STEMI (non-ST elevated myocardial infarction) Smoking addiction Smoking addiction Home Medications acetaminophen 1,000 mg PO TID PRN PRN #20 tab 11/26/18 [Rx Last Taken Unknown] ibuprofen 600 mg PO Q8H PRN PRN #30 tab 11/26/18 [Rx Last Taken Unknown] Nebulizer machine #1 ea 02/11/19 [Rx Last Taken Unknown] atorvastatin 80 mg tablet 80 mg PO QHS #90 tab 04/19/20 [Rx Last Taken Unknown] clopidogrel 75 mg tablet 75 mg PO DAILY #90 tab 04/19/20 [Rx Last Taken Unknown] nitroglycerin 0.4 mg sublingual tablet 0.4 mg SUBLINGUAL Q5-15M PRN #25 tab 06/14/20 [Rx Last Taken Unknown] lisinopril 10 mg tablet 10 mg PO DAILY #90 tab 12/29/20 [Rx Last Taken Unknown] aspirin 81 mg tablet,delayed release 81 mg PO DAILY #90 tab 12/31/20 [Rx Last Taken Unknown] budesonide-formoterol HFA 160 mcg-4.5 mcg/actuation aerosol inhaler 2 puff INHALATION BID #10.2 g 03/28/21 [Rx Last Taken Unknown] cetirizine 10 mg capsule 10 mg PO DAILY #30 cap 08/05/21 [Rx Last Taken Unknown] phenazopyridine 200 mg tablet 200 mg PO TID #6 tab 08/05/21 [Rx Last Taken Unknown] albuterol sulfate 90 mcg/actuation aerosol inhaler 2 puff INHALATION Q4H PRN PRN #8.5 g 08/30/21 [Rx Last Taken Unknown] ipratropium 0.5 mg-albuterol 3 mg (2.5 mg base)/3 mL nebulization soln See Rx Instructions .ROUTE .COMPLEX #90 ml 09/01/21 [Rx Last Taken Unknown] pseudoephedrine-guaifenesin ER 60 mg-600 mg tablet,extend release 12hr 1 tab PO Q12H PRN #30 tab 09/01/21 [Rx Last Taken Unknown] azithromycin 250 mg tablet See Rx Instructions PO DIRECTED #6 tab 09/06/21 [Rx Last Taken Unknown] nicotine 21 mg/24 hr daily transdermal patch 1 patch TRANSDERMAL DAILY #28 ea 09/08/21 [Rx Last Taken Unknown] pantoprazole [Protonix] 40 mg PO DAILY #30 tab 09/18/21 [Rx Last Taken Unknown] sucralfate [Carafate] 1 g PO TID 14 Days #42 tab 09/18/21 [Rx Last Taken Unknown] Allergy/AdvReac Type Severity Reaction Status Date / Time Latex, Natural Rubber Allergy Severe hives Verified 09/18/21 10:35 nitrofurantoin Allergy Severe Hives Verified 09/18/21 10:35 [From Macrodantin] bupropion HCl AdvReac Other Verified 09/18/21 10:35 [From Wellbutrin] prednisone AdvReac Other Verified 09/18/21 10:35 Family History Mother Myocardial infarction Diabetes Father Myocardial infarction Colon cancer Diabetes Grandmother CVA (cerebral vascular accident) Diabetes Surgical History History of oophorectomy History of total hysterectomy Presence of stent in coronary artery (~12/03/17) Social History Smoking Status: Current every day smoker tobacco type: cigarettes alcohol intake: former substance use type: marijuana caffeine: Yes Type: coffee what type of physical activity do you participate in: none seatbelt use: sometimes do you feel safe at home: Yes ROS ROS ED Constitutional Constitutional ED: Denies chills or weight loss Eyes Eyes: Denies change in vision or diplopia ENT ENT ED: Denies ear pain, rhinorrhea or sore throat Cardiovascular Cardiovascular: Reports chest pain; Denies orthopnea, palpitations or racing heartbeat Respiratory/Chest Respiratory/Chest: Denies cough, dyspnea or orthopnea Gastrointestinal Gastrointestinal: Reports diarrhea and other Details: Bloating ; Denies abdominal pain, nausea or vomiting Genitourinary Genitourinary ED: Denies dysuria, hematuria or urinary frequency Musculoskeletal Musculoskeletal: Denies arthralgias or myalgias Integumentary Denies abscess or rash Neurologic Neurologic: Denies headache(s) or weakness Psychiatric Psychiatric: Denies anxiety, depression, suicidal ideation or suicidal thoughts Endocrine Endocrinology: Denies polydipsia, polyphagia or polyuria Allergic/Immunologic Allergic/Immunologic ED: Denies mouth swelling, tongue swelling or urticaria EXAM Physical Exam Const Vital Signs: 09/18/21 10:35 09/18/21 10:58 09/18/21 11:00 Temperature 97.7 F L Temperature Source Temporal Pulse Rate 90 Respiratory Rate 15 Respiratory Effort Normal Non-Labored Blood Pressure 151/88 H Blood Pressure Mean 109 Pulse Ox 94 96 Oxygen Delivery Method Room Air Room Air Positive well nourished and well developed General Appearance ED: well developed HEENT Reports normocephalic, head/scalp atraumatic and moist mucous membranes Eyes PERRL and EOMs intact bilaterally Neck no lymphadenopathy, supple and no JVD Resp normal respiratory effort and clear to auscultation bilaterally Cardio regular rate, regular rhythm and no murmurs GI normal to inspection, nondistended, normoactive bowel sounds and non-tender Palpation: soft Back/Spine no CVA tenderness and normal ROM Extremity normal to inspection General Extremety ED: Negative for edema General Extremity: Negative for edema Neuro oriented x3 and CN's II-XII intact bilaterally Sensorium / Orientation: alert Motor Exam: strength 5/5 throughout Psych mental status grossly normal Mood & Affect: Negative for depressed or tearful Skin no rashes or lesions noted and no wounds Heart Score History: Slightly/Non-Suspicious ECG: Normal Age: >45 - <65 years Risk Factors: >/= 3 Risk Factors or History of CAD Troponin: </= Normal Limit Score: 3 MDM MDM MDM Narrative Medical decision making narrative: My interpretation of the chest x-ray is no acute process. CBC normal CMP alk phos 136 glucose 128. High-sensitivity troponin is 5. Clinically I think this is most likely to be esophagitis. Start her on Protonix and Carafate. I recommend that she follow-up with her doctor if continued symptoms for possible repeat EGD. Lab Data Attestation: I reviewed the patient's lab results. Labs: Laboratory Results - last 24 hr 09/18/21 09/18/21 10:50 10:50 WBC 10.0 RBC 4.24 Hgb 13.7 Hct 41.1 MCV 96.9 MCH 32.3 H MCHC 33.3 RDW Std Deviation 48.0 H RDW Coeff of Tanja 13.4 Plt Count 277 MPV 8.4 Immature Gran % (Auto) 0.300 Neut % (Auto) 64.1 Lymph % (Auto) 26.8 [place] % (Auto) 7.0 Eos % (Auto) 1.4 Baso % (Auto) 0.4 Absolute Neuts (auto) 6.4 Absolute Lymphs (auto) 2.67 Nucleated RBC % 0 Sodium 140 Potassium 3.6 Chloride 108 H Carbon Dioxide 27.0 Anion Gap 5 BUN 8 Creatinine 0.69 Estim Creat Clear Calc 79.72 Est GFR (MDRD) Af Amer 117 Est GFR (MDRD) Non-Af 97 BUN/Creatinine Ratio 11.6 Glucose 128 H Calcium 8.5 Total Bilirubin 0.40 Direct Bilirubin 0.11 AST 11 L ALT 19 Alkaline Phosphatase 136 H Troponin I High Sens 5 Total Protein 6.9 Albumin 3.3 Globulin 3.6 Lipase 126 Radiography Diagnostic Testing: Clinical Impression(s) from Imaging Studies Chest X-Ray 09/18/21 10:46 IMPRESSION: Normal x-ray examination of the chest. Electronically Signed: Aden Phelan MD at 11:43 EST Tel , Service support , EKG Initial EKG: Attestation: I personally reviewed and interpreted this EKG as follows: Comments: Normal sinus rhythm with a ventricular rate of 75 bpm. Discharge Plan Triage Chief Complaint: Chest Pain ED Provider: Mat Steel Dx/Rx/DC Orders Clinical Impression: Esophagitis Instructions: Esophagitis Prescriptions: New pantoprazole [Protonix] 40 mg tablet,delayed release (DR/EC) 40 mg PO DAILY Qty: 30 RF: 0 sucralfate [Carafate] 1 gram tablet 1 g PO TID 14 Days Qty: 42 RF: 0 No Action nitroglycerin 0.4 mg tablet, sublingual 0.4 mg sublingual Q5-15M PRN (Reason: cp) Qty: 25 RF: 3 lisinopril 10 mg tablet 10 mg PO DAILY Qty: 90 RF: 3 phenazopyridine [Pyridium] 200 mg tablet 200 mg PO TID Qty: 6 RF: 0 Zyrtec 10 mg capsule 10 mg PO DAILY Qty: 30 RF: 0 ipratropium-albuterol 0.5 mg-3 mg(2.5 mg base)/3 mL solution for nebulization See Rx Instructions .ROUTE .COMPLEX Qty: 90 RF: 3 pseudoephedrine-guaifenesin [Mucinex D] 60-600 mg tablet extended release 12 hr 1 tab PO Q12H PRN (Reason: cold symptoms) Qty: 30 RF: 0 nicotine [Nicoderm CQ] 21 mg/24 hr patch 24 hour 1 patch transdermal DAILY Qty: 28 RF: 2 acetaminophen 500 MG tablet 1,000 mg PO TID PRN PRN (Reason: Fever) Qty: 20 RF: 0 ibuprofen 200 MG tablet 600 mg PO Q8H PRN PRN (Reason: Fever) Qty: 30 RF: 0 (DME) Nebulizer machine Qty: 1 RF: 0 clopidogrel 75 mg tablet 75 mg PO DAILY Qty: 90 RF: 3 atorvastatin 80 mg tablet 80 mg PO QHS Qty: 90 RF: 3 aspirin [Adult Aspirin Regimen] 81 mg tablet,delayed release (DR/EC) 81 mg PO DAILY Qty: 90 RF: 2 budesonide-formoterol [Symbicort] 160-4.5 mcg/actuation HFA aerosol inhaler 2 puff INHALATION BID Qty: 10.2 RF: 2 albuterol sulfate 90 mcg/actuation HFA aerosol inhaler 2 puff INHALATION Q4H PRN PRN (Reason: SOB and/or wheezing) Qty: 8.5 RF: 2 azithromycin [Zithromax Z-Abdoulaye] 250 mg tablet See Rx Instructions PO DIRECTED Qty: 6 RF: 0 Primary Care Provider: Bennett Blandon Referrals: Bennett Blandon DO [Primary Care Provider] - 1-2 Weeks Disposition Disposition: Home, Self Care
[2021-09-18] MEDS: Mag Hydrox/Al Hydrox/Simeth 30 ML UDC PO (10:56)
[2021-09-18 10:58] VITALS: O2SAT 96
[2021-09-18 11:04] LABS: Absolute Lymphocyte Count 2.67 X10^3/uL (0.83-4.51); Absolute Neutrophil Count 6.4 X10^3/uL (2.0-7.7); Basophil# 0.04 X10^3/uL; Basophil% 0.4 % (0-1); Eosinophil# 0.14 X10^3/uL; Eosinophils% 1.4 % (0-5); Hematocrit 41.1 % (37-47); Hemoglobin 13.7 g/dL (12.0-15.0); Lymphocyte # 2.67 X10^3/ul (0.83-4.51); Lymphocyte % 26.8 % (19-41); Mean Corp Hgb Conc 33.3 g/dL (32-36); Mean Corpuscular Hgb 32.3 pg (27.0-32.0); Mean Corpuscular Volume 96.9 fL (81-99); Mean Platelet Vol. 8.4 fl (6.2-12.0); NRBC Flagged by Analyzer 0 % (0-5); Neutrophil # 6.39 X10^3/uL (2.7-7.7); Neutrophil % 64.1 % (47-70); Platelet Count 277 K/mm3 (150-450); RBC Distribution Width CV 13.4 % (11.6-14.6); Red Blood Count 4.24 M/mm3 (4.2-5.4)
[2021-09-18 11:23] LABS: AST(SGOT) 11 U/L (15-37); Alanine Aminotransfer ALT/SGPT 19 U/L (13-56); Albumin, Serum 3.3 g/dL (3.2-5.0); Alkaline Phosphatase 136 U/L (45-117); Anion Gap 5 (5-15); BUN 8 mg/dL (7-18); BUN/Creat Ratio 11.6 RATIO (10-20); Bilirubin, Direct 0.11 mg/dL (0.00-0.30); Calcium,Total 8.5 mg/dL (8.5-10.1); Chloride 108 mmol/L (98-107); Creatinine, Serum 0.69 mg/dL (0.55-1.02); EST Glomerular Filtration Rate 97 mL/min (>60); Est Glom Filt Rate - Afr Amer 117 mL/min (>60); Estimated Creatinine Clearance 79.72 ml/min; Globulin 3.6 g/dL (2.2-4.2); Glucose 128 mg/dL (74-106); Lipase 126 U/L (73-393); Potassium 3.6 mmol/L (3.5-5.1); Protein, Total 6.9 g/dL (6.4-8.2); Sodium Level 140 mmol/L (136-145); Troponin-I HS 5 pg/mL (3.0-54.0)
[2021-09-18 11:49] VITALS: BP 144/89; PULSE 76; RESP 18; O2SAT 94
== END 2021-09-18 11:52 | disposition home or self-care (01) ==
PROVIDERS: Emergency Provider Emergency Medicine; PCP Family Medicine
DX: K20.90 Esophagitis, unspecified without bleeding (principal); I25.10 Atherosclerotic heart disease of native coronary artery without angina pectoris; M19.90 Unspecified osteoarthritis, unspecified site; J44.9 Chronic obstructive pulmonary disease, unspecified; E78.5 Hyperlipidemia, unspecified; I10 Essential (primary) hypertension; F17.210 Nicotine dependence, cigarettes, uncomplicated; Z79.02 Long term (current) use of antithrombotics/antiplatelets; Z79.51 Long term (current) use of inhaled steroids; Z79.899 Other long term (current) drug therapy
CPT/HCPCS: 71045; 80048; 80076; 83690; 84484; 85025; 93005; 99285; A4216

== ENCOUNTER 2021-09-22 07:20 | Emergency (ER) | payer MEDICAID, SELFPAY ==
[2021-08-31 15:12] VITALS: BMI 23.6
[2021-09-22 07:21] VITALS: BP 145/84; PULSE 79; RESP 18; TEMP 36.1; O2SAT 96; BMI 25.4
[2021-09-22] MEDS: oxyCODONE 5 MG Tablet PO (08:10)
[2021-09-22] MEDS: Orphenadrine 60 MG/2 ML Ampul IM (08:11)
[2021-09-22] MEDS: Ketorolac 30 MG/ML Syringe IM (08:11)
--- NOTE | 2021-09-22 08:33 | EX.ED.DYSGE1 ---
HPI History of Present Illness Chief Complaint: Lower Extremity Injury Narrative Narrative: Patient presents with bilateral ankle pain. This is been on and off for the past few years and the etiology is unknown. This episode started 2 days ago, she is able to ambulate but continues to have the pain. No fever or chills she has no calf pain or extremity edema she has no chest pain shortness of breath or pleuritic component. This is very similar to prior episodes in the past. PFSH PFSH Medical History Arthritis Atherosclerotic heart disease of [place] coronary artery without angina pectoris Chest pain Chronic back pain COPD (chronic obstructive pulmonary disease) COPD (chronic obstructive pulmonary disease) history of intracerebral aneurysm Hyperlipidemia Hypertension Ischemic cardiomyopathy Non-STEMI (non-ST elevated myocardial infarction) Smoking addiction Smoking addiction Home Medications acetaminophen 1,000 mg PO TID PRN PRN #20 tab 11/26/18 [Rx Last Taken Unknown] ibuprofen 600 mg PO Q8H PRN PRN #30 tab 11/26/18 [Rx Last Taken Unknown] Nebulizer machine #1 ea 02/11/19 [Rx Last Taken Unknown] atorvastatin 80 mg tablet 80 mg PO QHS #90 tab 04/19/20 [Rx Last Taken Unknown] clopidogrel 75 mg tablet 75 mg PO DAILY #90 tab 04/19/20 [Rx Last Taken Unknown] nitroglycerin 0.4 mg sublingual tablet 0.4 mg SUBLINGUAL Q5-15M PRN #25 tab 06/14/20 [Rx Last Taken Unknown] lisinopril 10 mg tablet 10 mg PO DAILY #90 tab 12/29/20 [Rx Last Taken Unknown] aspirin 81 mg tablet,delayed release 81 mg PO DAILY #90 tab 12/31/20 [Rx Last Taken Unknown] budesonide-formoterol HFA 160 mcg-4.5 mcg/actuation aerosol inhaler 2 puff INHALATION BID #10.2 g 03/28/21 [Rx Last Taken Unknown] cetirizine 10 mg capsule 10 mg PO DAILY #30 cap 08/05/21 [Rx Last Taken Unknown] phenazopyridine 200 mg tablet 200 mg PO TID #6 tab 08/05/21 [Rx Last Taken Unknown] albuterol sulfate 90 mcg/actuation aerosol inhaler 2 puff INHALATION Q4H PRN PRN #8.5 g 08/30/21 [Rx Last Taken Unknown] ipratropium 0.5 mg-albuterol 3 mg (2.5 mg base)/3 mL nebulization soln See Rx Instructions .ROUTE .COMPLEX #90 ml 09/01/21 [Rx Last Taken Unknown] pseudoephedrine-guaifenesin ER 60 mg-600 mg tablet,extend release 12hr 1 tab PO Q12H PRN #30 tab 09/01/21 [Rx Last Taken Unknown] azithromycin 250 mg tablet See Rx Instructions PO DIRECTED #6 tab 09/06/21 [Rx Last Taken Unknown] nicotine 21 mg/24 hr daily transdermal patch 1 patch TRANSDERMAL DAILY #28 ea 09/08/21 [Rx Last Taken Unknown] pantoprazole [Protonix] 40 mg PO DAILY #30 tab 09/18/21 [Rx Last Taken Unknown] sucralfate [Carafate] 1 g PO TID 14 Days #42 tab 09/18/21 [Rx Last Taken Unknown] naproxen [Naprosyn] 500 mg PO BID PRN #10 tab 09/22/21 [Rx Last Taken Unknown] tizanidine 4 mg PO BID #10 tab 09/22/21 [Rx Last Taken Unknown] Allergy/AdvReac Type Severity Reaction Status Date / Time Latex, Natural Rubber Allergy Severe hives Verified 09/22/21 07:21 nitrofurantoin Allergy Severe Hives Verified 09/22/21 07:21 [From Macrodantin] bupropion HCl AdvReac Other Verified 09/22/21 07:21 [From Wellbutrin] prednisone AdvReac Other Verified 09/22/21 07:21 Family History Mother Myocardial infarction Diabetes Father Myocardial infarction Colon cancer Diabetes Grandmother CVA (cerebral vascular accident) Diabetes Surgical History History of oophorectomy History of total hysterectomy Presence of stent in coronary artery (~12/03/17) Social History Smoking Status: Current every day smoker tobacco type: cigarettes alcohol intake: former substance use type: marijuana caffeine: Yes Type: coffee what type of physical activity do you participate in: none seatbelt use: sometimes do you feel safe at home: Yes ROS ROS ED ROS Narrative Past medical history: Reviewed, it is extensive, includes COPD, heart disease, hypertension, hypercholesterolemia, aneurysm rupture, smoker Medications: Reviewed Social history: Smoker Review of systems: All systems negative except as indicated General: No fever Eyes: No visual changes ENT: No upper airway congestion, normal voice Neck: No neck pain Cardiovascular: No chest pain Respiratory: No shortness of breath or cough Gastrointestinal: No abdominal pain, nausea vomiting or diarrhea Genitourinary: No dysuria Musculoskeletal: Ankle pain as in HPI Skin: No rash Neurological: No memory loss, confusion or any focal weakness Psych: No recent behavioral changes Hematologic: No easy bleeding or easy bruising EXAM Physical Exam Narrative Exam Narrative: Physical exam General: Patient appears chronically ill, she does not appear acutely ill. She appears uncomfortable Head: Normocephalic, Atraumatic Eyes: Conjunctiva not pale ENT: Moist mucous membranes. Edentulous Neck: Supple, Nontender, No lymphadenopathy Cardiovascular: Regular rate, Regular rhythm Respiratory: No distress, CTA bilaterally Abdomen: Soft, Nontender, Nondistended Back: Nontender, Normal Inspection. Negative for: CVA tenderness Extremities: Bilateral lower extremity ankle pain, no calf pain no swelling no signs of cellulitis. Skin: Normal color, No rash Neurological: Alert, Normal Strength, Normal Sensation Psychological: Normal affect Const Vital Signs: 09/22/21 07:21 Temperature 96.9 F L Temperature Source Temporal Pulse Rate 79 Respiratory Rate 18 Blood Pressure 145/84 H Blood Pressure Mean 104 Pulse Ox 96 Oxygen Delivery Method Room Air MDM MDM MDM Narrative Medical decision making narrative: Patient has chronic recurrent pain. I treated her symptomatically evaluated her again and she improved. I will discharge her in stable condition. Discharge Plan Triage Chief Complaint: Lower Extremity Injury ED Provider: Elias Hernandez Dx/Rx/DC Orders Clinical Impression: Lower extremity pain Instructions: Complementary Care for Pain Prescriptions: New tizanidine 4 mg tablet 4 mg PO BID Qty: 10 RF: 0 naproxen [Naprosyn] 500 mg tablet 500 mg PO BID PRN (Reason: pain) Qty: 10 RF: 0 No Action nitroglycerin 0.4 mg tablet, sublingual 0.4 mg sublingual Q5-15M PRN (Reason: cp) Qty: 25 RF: 3 lisinopril 10 mg tablet 10 mg PO DAILY Qty: 90 RF: 3 phenazopyridine [Pyridium] 200 mg tablet 200 mg PO TID Qty: 6 RF: 0 Zyrtec 10 mg capsule 10 mg PO DAILY Qty: 30 RF: 0 ipratropium-albuterol 0.5 mg-3 mg(2.5 mg base)/3 mL solution for nebulization See Rx Instructions .ROUTE .COMPLEX Qty: 90 RF: 3 pseudoephedrine-guaifenesin [Mucinex D] 60-600 mg tablet extended release 12 hr 1 tab PO Q12H PRN (Reason: cold symptoms) Qty: 30 RF: 0 nicotine [Nicoderm CQ] 21 mg/24 hr patch 24 hour 1 patch transdermal DAILY Qty: 28 RF: 2 acetaminophen 500 MG tablet 1,000 mg PO TID PRN PRN (Reason: Fever) Qty: 20 RF: 0 ibuprofen 200 MG tablet 600 mg PO Q8H PRN PRN (Reason: Fever) Qty: 30 RF: 0 pantoprazole [Protonix] 40 mg tablet,delayed release (DR/EC) 40 mg PO DAILY Qty: 30 RF: 0 sucralfate [Carafate] 1 gram tablet 1 g PO TID 14 Days Qty: 42 RF: 0 (DME) Nebulizer machine Qty: 1 RF: 0 clopidogrel 75 mg tablet 75 mg PO DAILY Qty: 90 RF: 3 atorvastatin 80 mg tablet 80 mg PO QHS Qty: 90 RF: 3 aspirin [Adult Aspirin Regimen] 81 mg tablet,delayed release (DR/EC) 81 mg PO DAILY Qty: 90 RF: 2 budesonide-formoterol [Symbicort] 160-4.5 mcg/actuation HFA aerosol inhaler 2 puff INHALATION BID Qty: 10.2 RF: 2 albuterol sulfate 90 mcg/actuation HFA aerosol inhaler 2 puff INHALATION Q4H PRN PRN (Reason: SOB and/or wheezing) Qty: 8.5 RF: 2 azithromycin [Zithromax Z-Abdoulaye] 250 mg tablet See Rx Instructions PO DIRECTED Qty: 6 RF: 0 Primary Care Provider: Bennett Blandon Referrals: Benentt Blandon, [Primary Care Provider] - 2 Days Disposition Disposition: Home, Self Care
[2021-09-22 09:09] VITALS: BP 141/81; PULSE 68; RESP 16; O2SAT 98
== END 2021-09-22 09:10 | disposition home or self-care (01) ==
PROVIDERS: Emergency Provider Emergency Medicine; PCP Family Medicine
DX: M25.571 Pain in right ankle and joints of right foot (principal); M25.572 Pain in left ankle and joints of left foot; M19.90 Unspecified osteoarthritis, unspecified site; I25.10 Atherosclerotic heart disease of native coronary artery without angina pectoris; J44.9 Chronic obstructive pulmonary disease, unspecified; E78.5 Hyperlipidemia, unspecified; I10 Essential (primary) hypertension; F17.210 Nicotine dependence, cigarettes, uncomplicated; Z79.51 Long term (current) use of inhaled steroids; Z79.899 Other long term (current) drug therapy
CPT/HCPCS: 96372; 99283

== ENCOUNTER 2021-12-19 15:44 | Outpatient (CLI) | payer MEDICAID, SELFPAY ==
[2021-08-31 15:12] VITALS: BMI 23.6
--- NOTE | 2021-12-19 15:48 | US_ITS ---
EXAM: US RETROPERITONEAL LIMITED, RENAL CLINICAL INDICATION: cystic kidneys TECHNIQUE: Limited grayscale and color Doppler sonographic evaluation of the retroperitoneum was performed. This report was created using [employer] report generation technology. COMPARISON: None. FINDINGS: RIGHT KIDNEY: Unremarkable. No hydronephrosis. No shadowing calculus. No focal lesion. No perinephric collection is demonstrated. LEFT KIDNEY: Unremarkable. No hydronephrosis. No shadowing calculus. No focal lesion. No perinephric collection is demonstrated. Bladder is unremarkable. US/Kidney and Bladder IMPRESSION: Unremarkable limited retroperitoneal ultrasound. Electronically Signed: Timothy Rojas MD at 0:38 EST ,
== END 2021-12-19 23:59 | disposition home or self-care (01) ==
LOC: US 15:46
PROVIDERS: PCP Family Medicine; Referring Provider Family Medicine; Visit Provider Family Medicine
DX: N28.1 Cyst of kidney, acquired (principal)
CPT/HCPCS: 76770

== ENCOUNTER 2021-12-27 13:58 | Outpatient (CLI) | payer MEDICAID, SELFPAY ==
[2021-08-31 15:12] VITALS: BMI 23.6
[2021-12-27 13:41] LABS: Mucous, Urine 0 SEEN /hpf (<or=2+); Red Blood Cells-Urine 0 SEEN /hpf (0-5)
--- NOTE | 2021-12-27 14:00 | BI_ITS ---
MAMMOGRAPHY - BILATERAL SCREENING REASON FOR EXAM: Female, 46 years old. Routine annual screening examination. PERTINENT HISTORY: Grandmother with breast cancer. TECHNIQUE: Digital bilateral breast jamir (3D mammographic acquisition) in the CC and MLO projections. 2-D mediolateral oblique (MLO) and craniocaudad (CC) views of both breasts were obtained. CAD: Full Field Digital Mammography with Computer Added Detection was performed. COMPARISON: None. Baseline examination. FINDINGS: Breast Composition: The breasts are heterogeneously dense, which may obscure small masses. There are no dominant masses or suspicious calcifications. No other significant abnormalities are identified. BI/SCRN MAMM (CAD)W/JAMIR BILAT IMPRESSION: Negative screening mammogram. Yearly followup mammogram recommended. (A) ASSESSMENT CATEGORY: BIRADS Category 1: Negative. A letter regarding these results will be sent to the patient by the facility within 30 days. Approximately 10% of breast cancers are not detected by mammography. A normal mammogram should not delay biopsy of a clinically suspicious abnormality. [id number] Electronically Signed: Rodney Saleh MD at 14:46 EST ,
[2021-12-27 14:46] LABS: Color, Urine Yellow (Yellow); Glucose, Dipstick Normal (Normal); Ketone-Dipstick Negative (Negative); Leukocyte Esterase-Dipstick 500 /ul (Negative); Nitrite-Dipstick Negative (Negative); Occult Blood-Urine 10 /ul (Negative); Protein-Dipstick Negative (Negative); Urine Bilirubin Dipstick Negative (Negative); Urine Clarity Sl. Cloudy (Clear); Urine Urobilinogen Normal (Normal); Urine pH 6.5 (5.0 - 8.0)
[2021-12-27 14:55] LABS: Erythrocyte Sedimentation Rate 19 mm/hr (0-30)
[2021-12-27 14:59] LABS: Squamous Epithelial Cells - UA 0-5 SEEN /hpf (5-10); White Blood Cells >100 SEEN /hpf (0-5)
[2021-12-27 15:00] LABS: Bacteria RARE /hpf (None Seen)
[2021-12-27 15:02] LABS: Hemoglobin A1c 5.6 % (3.8-5.6)
[2021-12-27 15:38] LABS: AST(SGOT) 16 U/L (15-37); Alanine Aminotransfer ALT/SGPT 21 U/L (13-56); Albumin, Serum 3.5 g/dL (3.2-5.0); Alkaline Phosphatase 152 U/L (45-117); Bilirubin, Direct 0.08 mg/dL (0.00-0.30); Globulin 3.5 g/dL (2.2-4.2); LDH 223 U/L (84-246); Thyroid Stim Hormone (TSH) 1.62 uIU/mL (0.358-3.74)
[2021-12-29 15:08] LABS: Anti-Centromere B Ab <0.2 AI (0.0-0.9); Anti-Chromatin <0.2 AI (0.0-0.9); Anti-Jo <0.2 AI (0.0-0.9); Anti-Scleroderma-70 AB <0.2 AI (0.0-0.9); RNP Ab 0.4 AI (0.0-0.9); SJOGREN'S Anti-SS-A test < 0.2 AI (0.0-0.9); SJOGREN'S Anti-SS-B test < 0.2 AI (0.0-0.9); Smith Ab <0.2 AI (0.0-0.9)
[2021-12-30 12:06] LABS: Anti-dsDNA Ab <1 IU/mL (0-9)
[2022-01-01 19:07] LABS: Cytoplasmic Ab (C-ANCA) <1:20 titer (Neg:<1:20); Endomysial Antibody IgA Negative (Negative); HEPATITIS B SURFACE AG Negative (Negative); Hepatitis A IgM Antibody Negative (Negative); Hepatitis B Core AB IgM Negative (Negative); Immunoglobulin A 297 mg/dL (87-352); Immunoglobulin E 109 IU/mL (6-495); Immunoglobulin G 749 mg/dL (586-1602)
[2022-01-02 13:31] LABS: Hep C Antibodies <0.1 s/co ratio (0.0-0.9); Immunoglobulin M 36 mg/dL (26-217); Perinuclear Ab (P-ANCA) <1:20 titer (Neg:<1:20); t-Transglutaminase IgA <2 U/mL (0-3)
== END 2021-12-27 23:59 | disposition home or self-care (01) ==
LOC: OPBI 13:58
PROVIDERS: Nurse Practitioner Adult Health; PCP Family Medicine; Referring Provider Family Medicine; Visit Provider Family Medicine
DX: Z12.31 Encounter for screening mammogram for malignant neoplasm of breast (principal); R30.0 Dysuria; K52.9 Noninfective gastroenteritis and colitis, unspecified
CPT/HCPCS: 36415; 77063; 77067; 80074; 80076; 81001; 82784; 82785; 83036; 83516; 83615; 84443; 85652; 86140; 86225; 86235; 86255; 86256

== ENCOUNTER 2022-01-03 11:42 | Outpatient (CLI) | payer MEDICAID, SELFPAY ==
[2021-08-31 15:12] VITALS: BMI 23.6
[2022-01-04 17:50] LABS: Giardia Lamblia, Stool EIA Negative (Negative)
[2022-01-05 18:41] LABS: Calprotectin, Stool 51 ug/g (0-120)
== END 2022-01-03 23:59 | disposition home or self-care (01) ==
LOC: LAB 11:43
PROVIDERS: PCP Family Medicine; Referring Provider Nurse Practitioner Adult Health; Visit Provider Nurse Practitioner Adult Health
DX: K52.9 Noninfective gastroenteritis and colitis, unspecified (principal)
CPT/HCPCS: 83630; 83993; 87177; 87209; 87329; 87493; 87506

== ENCOUNTER 2022-01-19 11:11 | Outpatient (CLI) | payer MEDICAID, SELFPAY ==
[2021-08-31 15:12] VITALS: BMI 23.6
[2022-01-19 11:14] LABS: Mucous, Urine 0 SEEN /hpf (<or=2+)
[2022-01-19 12:15] LABS: Color, Urine Yellow (Yellow); Glucose, Dipstick Normal (Normal); Ketone-Dipstick Negative (Negative); Leukocyte Esterase-Dipstick 500 /ul (Negative); Nitrite-Dipstick Negative (Negative); Occult Blood-Urine 10 /ul (Negative); Protein-Dipstick 15 mg/dl (Negative); Urine Bilirubin Dipstick Negative (Negative); Urine Clarity Sl. Cloudy (Clear); Urine Urobilinogen Normal (Normal)
[2022-01-19 12:23] LABS: Red Blood Cells-Urine 0-5 SEEN /hpf (0-5); White Blood Cells 25-50 SEEN /hpf (0-5)
[2022-01-19 12:24] LABS: Bacteria 1+ /hpf (None Seen); Squamous Epithelial Cells - UA 0-5 SEEN /hpf (5-10)
== END 2022-01-19 23:59 | disposition home or self-care (01) ==
LOC: LABSPEC 11:12
PROVIDERS: PCP Family Medicine; Referring Provider Physician Assistant; Visit Provider Physician Assistant
DX: R30.0 Dysuria (principal)
CPT/HCPCS: 81001; 87086; 87088

== ENCOUNTER 2022-01-26 14:16 | Outpatient (CLI) | payer MEDICAID, SELFPAY ==
[2021-08-31 15:12] VITALS: BMI 23.6
[2022-01-26 14:19] LABS: Mucous, Urine 0 SEEN /hpf (<or=2+)
[2022-01-26 15:16] LABS: Color, Urine Yellow (Yellow); Glucose, Dipstick Normal (Normal); Ketone-Dipstick Negative (Negative); Leukocyte Esterase-Dipstick 500 /ul (Negative); Nitrite-Dipstick Negative (Negative); Occult Blood-Urine 25 /ul (Negative); Protein-Dipstick 15 mg/dl (Negative); Specific Gravity, Urine 1.015 (1.002-1.030); Urine Bilirubin Dipstick Negative (Negative); Urine Clarity Sl. Cloudy (Clear); Urine Urobilinogen Normal (Normal); Urine pH 6.5 (5.0 - 8.0)
[2022-01-26 15:25] LABS: White Blood Cells 50-100 SEEN /hpf (0-5)
[2022-01-26 15:26] LABS: Amorphous Sediment 1+ URATE; Bacteria RARE /hpf (None Seen); Red Blood Cells-Urine 0-5 SEEN /hpf (0-5); Squamous Epithelial Cells - UA 0-5 SEEN /hpf (5-10)
[2022-01-26 15:27] LABS: GGTP 27 U/L (5-55)
[2022-01-29 09:36] LABS: Anti-Smooth Muscle ABS 5 Units (0-19)
[2022-01-29 09:37] LABS: Anti-Mitochondrial AB <20.0 Units (0.0-20.0)
== END 2022-01-26 23:59 | disposition home or self-care (01) ==
LOC: BIMLAB 14:18
PROVIDERS: Nurse Practitioner Adult Health; PCP Family Medicine; Referring Provider Physician Assistant; Visit Provider Physician Assistant
DX: R74.8 Abnormal levels of other serum enzymes (principal); N39.0 Urinary tract infection, site not specified; R31.9 Hematuria, unspecified
CPT/HCPCS: 36415; 81001; 82977; 83516; 87086

== ENCOUNTER 2022-02-23 08:45 | Day surgery (SDC) | payer MEDICAID, SELFPAY ==
[2021-08-31 15:12] VITALS: BMI 23.6
[2022-02-23] VITALS (7 sets, daily range): BP systolic 114–131; BP diastolic 57–104; PULSE 79–85; RESP 8–32; TEMP 35.6–36.4; O2SAT 93–96; BMI 27.3
--- NOTE | 2022-02-23 09:13 | PCM.HP.BLA ---
History and Physical Date of Admission: 02/23/22February CANDIE, is a 46 F who presents to the office today for hx of colon polyp. She had a colonoscopy done > 3 years ago at [facility], had a polyp removed, told to get repeat colonoscopy in 3 yrs. Her biological father had colon cancer. She has chronic diarrhea x years. She reports poor appetite during the day, doesn't eat until evening. If she eats more then her BMs can be solid. She drinks more fluids than eats food--coffee, water, pop. Once a year moonshine, otherwise no alcohol. No hematochezia or melena. Crampy pain in lower abd before diarrhea. Can be urgent. No fecal incontinence. No diagnosis made. Was treated with a medication (she forgets name of it) but it didn't help. Frequent CP after eating or drinking. Taking pantoprazole daily and sucralfate TID; they help a lot with the pain; almost no pain now that she takes them. When she stopped them the pain returned. Rare nausea. Sometimes vomits when she has a BM, no pattern to that, happened a few times recently. Food has gotten stuck in esophagus, says not recent. Weight has been stable. Hx hysterectomy for pre-cancer, oophorectomy, tubal ligation ROS Const Constitutional: Positive for fatigue; No anorexia, body ache, chills, excessive sweating, fever(s), frequent falls, headache(s), decreased energy, malaise, night sweats, snoring, weakness, weight change, sleep problems, abnormal sleep pattern, change in appetite or other Eyes Eyes: Positive for blurry vision and eye pain; No change in vision, double vision, irritation, discharge, vision loss, dry eyes, bulging eyes, floaters, visual disturbances, Light sensitivity, spots in vision, tunnel vision or other ENT ENT: Positive for nasal congestion and difficulty swallowing; No abnormal hearing, ear or mastoid pain, ear discharge, ear pressure, hearing loss, tinnitus, dizziness/vertigo, balance problems, nosebleed/epistaxis, nasal obstruction, nose pain, sinus pressure, sinus pain, nasal discharge, post nasal drip, headache(s), facial pain, dental pain, dry mouth, bad breath, hoarseness, lip swelling, mouth lesions, mouth pain, neck pain, sore throat, tongue swelling, throat swelling or other Resp Respiratory: Positive for cough; No change in phlegm color, chest congestion, excessive phlegm production, hemoptysis, pain on inspiration, shortness of breath, pain with cough, snoring, stridor or other Cardio Cardiology: Positive for dyspnea on exertion; No chest pain at rest, chest pain with exertion, leg pain with exertion, excessive sweating, shortness of breath, generalized swelling, irregular heart rhythm, lightheadedness, orthopnea, radiating jaw, neck or arm pain, fast heart rate, slow heart rate, palpitations, difficulty breathing or other Gastro GI: Positive for abdominal pain, bloating, diarrhea, heartburn and difficulty swallowing; No belching, change in bowel habits, change in stool character, coffee ground emesis, constipation, cramping, feeling full early, excessive flatus, incontinent of stools, Vomiting blood/hematemesis, Blood in stool, loose stools, Black,tarry stools, nausea/dyspepsia, pain with swallowing, vomiting or other Genitourinary-Female: Positive for urinary frequency and Vaginal Itching; No difficulty urinating, burning urination, painful urination, urinary incontinence, urinary urgency, urinary hesitancy, urinary retention, blood in urine, Frequent nighttime urination/ nocturia, post void dribbling, suprapubic fullness, side pain, sexual problems, genital lesions, genital itching, hot flashes, abnormal periods, abnormal vaginal bleeding, absent period, painful periods, light periods, heavy periods, difficulty getting , painful intercourse, pelvic pain, vaginal dryness, vaginal odor or other Musc Musculoskeletal: Positive for back pain, muscle cramps and stiffness; No abnormal gait, joint pain, deformity, joint swelling, limited range of motion, loss of height, muscle weakness, decreased muscle mass, myalgias, neck pain, numbness, radiating pain into limb, tingling, Arthritis, sciatica, restless legs, leg pain at night, leg pain with exertion or other Skin Skin: No acne, hair loss in leg, change in hair, nail changes, boil, change in skin color, dry skin, redness, excessive hair growth, yellowing of the eye, lesions, itchy eyes, rash, skin pain, skin ulcer, sores, skin swelling, wounds or other Neuro Neurology: No abnormal gait, abnormal hearing, abnormal movements, abnormal speech, behavioral changes, confusion, unsteady gait/balance, dizziness, weakness, frequent falls, headache(s), lack of coordination, loss of vision, memory loss, numbness, tingling, visual disturbances, restless legs, fainting, tremor(s), Increased tone in limbs, paralysis, seizures or other Psych Psychiatric: No abnormal sleep pattern, No lack of enjoyment, No anxiety, No behavioral changes, No change in appetite, No confusion, Positive for depression, No difficulty concentrating, No hopelessness, No irritability, No memory loss, No mood swings, No panic attacks, No paranoia, No Thoughts of harming yourself/Others, No hallucinations, No Behavioral Problems, No Compulsive Behavior, No hyperactivity, No inattentiveness, No obsessions/compulsions, No Temper Tantrums, No suicidal ideation and No other Endo Endocrine: Positive for fatigue, increased thirst/drinking and increased urine leakage; No change in body appearance, cold intolerance, excessive sweating, flushing, heat intolerance, increased hunger, weight change or other Aller/Imm Allergy/Immunologic: No itchy eyes, lip swelling, throat swelling or tongue swelling Shaun/Lymp Hematologic/Lymphatic: Positive for easy bruising; No easy bleeding, enlarged lymph nodes or other Exam Const General: cooperative, comfortable, no acute distress and well developed Eyes Conjunctivae: conjunctivae normal Sclera: sclerae normal Neck Neck: normal visual inspection Resp Effort & Inspection: normal respiratory effort GI Inspection: normal to inspection Auscultation: normal bowel sounds Palpation: soft and nontender (generalized) Extrem General: no pedal edema Quality Reporting Tobacco Screening ([facility]) Smoking Status: Current every day smoker Assessment and Plan Assessment and Plan (1) Chronic diarrhea: Status: Chronic (2) Dysphagia: Status: Acute (3) Acid reflux: Status: Acute (4) Hx of colonic polyp: Status: Acute Orders: Orders: CRP Today K52.9 LDH Today K52.9 Erythrocyte Sed Rate Today K52.9 Calprotectin, Stool Today K52.9 Ova and Parasites 8623 Today K52.9 CDIFF (PCR) Today K52.9 ENTERIC PATHOGEN PANEL STOOL Today K52.9 Stool Lactoferrin/WBC Today K52.9 Hepatitis Panel Acute Today K52.9 ANCA Today K52.9 Celiac Disease Profile Today K52.9 Giardia Lamblia, Stool EIA Today K52.9 Immunoglobulin E Today K52.9 Immunoglobulin G Today K52.9 Immunoglobulin M Today K52.9 Liver Profile Today K52.9 Thyroid Stim Hormone (TSH) Today K52.9 Hemoglobin A1c Today K52.9 Plan: 46 yr old female with chronic constipation, acid reflux, dysphagia, hx of colon polyp. She declines colestipol as stopgap treatment for diarrhea while we're doing w/u. Will get blood and stool tests for the chronic diarrhea. Consider imaging. She will be scheduled for upper and lower endoscopy. I have re-examined the patient. There are no clinical changes since date of exam.
[2022-02-23] MEDS: Lactated Ringers 1,000 ML 15 ML IV (09:20)
--- NOTE | 2022-02-23 10:00 | EGD_PTH ---
PATIENT: CANDIE LOC: EN U#:[id number] AGE/SX: 46/F ROOM: RE02/23/[address]: Dr. Sylvain Chavez DO : 1975 BED: DIS: 02/23/2022 SPEC #: [id number] RECD: 02/23/22 13:15 STATUS: KOKO ANA ROSA #: [id number] ANJELICA: 02/23/22 10:[address]: Sylvain Chavez DEPT: SURGICAL PATHOLOGY RECD BY: Nivia Clement ENTERED: 02/23/22 13:41 SP TYPE: EGD BIOPSY OT DR: Dr. Bennett Blandon DO Tissues: A - Duodenum, NOS B - Pylorus C - Gastric mucous membrane D - Esophagus, NOS E - COLON BIOPSY F - Ileum, NOS G - COLON BIOPSY Procedures: Special Stain Group II Surgery Specimen Level IV Alcian Blue/PAS (control) HEADER OPERATION: Colonoscopy, EGD ([facility] [place]) with biopsies and polyp removal PRE-OP DIAGNOSIS: Chronic diarrhea, dysphagia, acid reflux, history of colonic polyp TISSUE SUBMITTED: A ? Duodenum biopsy, B ? Pylorus biopsy, C ? Gastric body biopsy, D ? Distal esophagus biopsy, E ? Splenic flexure polyp, F ? Terminal ileum biopsy, G ? Random colon biopsy MICROSCOPIC DIAGNOSIS A. Duodenum, biopsy: Fragments of duodenal mucosa, no pathologic diagnosis. B. Pylorus, biopsy: Mild gastritis. See microscopic description and comment. C. Gastric body, biopsy: Mild gastritis. See microscopic description. D. 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 Mild chronic inflammation. Negative for dysplasia. See comment. E. Splenic flexure polyp, biopsy: Fragments of tubular adenoma. Fragments of fecal material. F. Terminal ileum, biopsy: A fragment of small intestinal mucosa, no pathologic diagnosis. G. Colon, random biopsy: Fragments of colonic mucosa, no pathologic diagnosis. SJ:suleiman 02/24/2022 COMMENT B. Focal intestinal metaplasia is also noted. No evidence of dysplasia. The results of immunohistochemistry for Helicobacter pylori will be reported separately ([id number]). D. Alcian blue/PAS stain with matched control is used in the evaluation of the specimen. Immunohistochemistry ([id number]) for P53 and Ki-67 will be performed and results will be reported separately. Case has been reviewed in consultation with Dr. Guillermo who concurs with the above diagnosis. IDC:AM MICROSCOPIC DESCRIPTION Slides are reviewed. B & C. The specimen shows fragments of gastric mucosa with chronic inflammatory cell infiltrates in the lamina propria consisting of lymphocytes and plasma cells, consistent with mild chronic gastritis. GROSS DESCRIPTION A - Received in fixative is one container labeled with the patient's name and designated duodenum biopsy. The specimen consists of multiple irregular fragments of light galdamez soft tissue that in aggregate measure 1 x 0.3 x 0.1 cm. The specimen is totally submitted in one cassette. B - Received in fixative is one container labeled with the patient's name and designated pylorus biopsy. The specimen consists of two irregular fragments of light galdamez soft tissue that in aggregate measure 0.5 x 0.5 x 0.1 cm. The specimen is totally submitted in one cassette. C - Received in fixative is one container labeled with the patient's name and designated gastric body biopsy. The specimen consists of one irregular fragment of light galdamez soft tissue that measures 0.5 x 0.3 x 0.1 cm. The specimen is totally submitted in one cassette. D - Received in fixative is one container labeled with the patient's name and designated distal esophagus biopsy. The specimen consists of multiple irregular fragments of light galdamez soft tissue that in aggregate measure 1.5 x 0.5 x 0.1 cm. The specimen is totally submitted in one cassette. E - Received in fixative is one container labeled with the patient's name and designated splenic flexure. The specimen consists of multiple irregular fragments of light galdamez soft tissue mixed with fecal material that in aggregate measure 2 x 1 x 0.1 cm. The specimen is totally submitted in one cassette. F - Received in fixative is one container labeled with the patient's name and designated terminal ileum. The specimen consists of one irregular fragment of light galdamez soft tissue that measures 0.3 x 0.3 x 0.1 cm. The specimen is totally submitted in one cassette. G - Received in fixative is one container labeled with the patient's name and designated random colon biopsy. The specimen consists of multiple irregular fragments of light galdamez soft tissue that in aggregate measure 1.5 x 0.5 x 0.1 cm. The specimen is totally submitted in one cassette. / TIMOTEO:suleiman 02/23/2022 TC:3 CPT: 85302 x7, 23007
--- NOTE | 2022-02-23 10:00 | IMM_PTH ---
PATIENT: CANDIEFebruary LOC: EN U#:[id number] AGE/SX: 46/F ROOM: RE02/23/[address]: Dr. Sylvain Chavez DO : 1975 BED: DIS: 02/23/2022 SPEC #: [id number] RECD: 02/23/22 13:34 STATUS: KOKO REDelvin #: [id number] ANJELICA: 02/23/22 10:[address]: Sylvain Chavez DEPT: IMMUNOHISTOCHEMISTRY RECD BY: Linda Camacho ENTERED: 02/23/22 13:35 SP TYPE: IMMUNO OTHR DR: Dr. Bennett Blandon DO Tissues: B - Pyloric antrum D - Esophagus, NOS Procedures: H Pylori (initial) P53 (initial) KI-67 (add) PHYSICIAN & INSTITUTION [place] [id number] SPECIMEN INFORMATION: Tissue Source: B ? Pylorus biopsy, D ? Distal esophagus biopsy Clinical Info: Chronic diarrhea, dysphagia, acid reflux, history of colonic polyp Specimen Number: [id number] B & D CPT code: 40523 x2, 61118 METHODOLOGY: Deparaffinized sections of prefer/formalin-fixed tissue or PAP/DQ stained slides are incubated with monoclonal/polyclonal antibodies/oligonucleotide probes. Localization is made via biotin free immunoperoxidase method. Appropriate controls are performed and reacted as expected. Results on target cell population are indicated in the following table: RESULTS: ANTIBODY / CLONE RESULT Block B H Pylori (polyclonal) negative Block D P53 (DO-7) negative Ki-67 (30-9) positive, very low These tests were developed and their performance characteristics determined by [facility]. They may not have been cleared or approved by the U.S. Food and Drug Administration. The FDA has determined that such clearance or approval is not necessary. The above immunohistochemical/dualISH markers are ordered and reviewed by the Pathologist. INTERPRETATION: B. Pylorus, biopsy: Negative for Helicobacter pylori organisms. D. Distal esophagus, biopsy: Negative for dysplasia. SJ:suleiman 02/24/2022
--- NOTE | 2022-02-23 10:56 | OP.EGD_ITS ---
Patient Name: February Procedure Date: 02/23/2022 10:06 AM Date of : 1975 Age: 46 Procedure: Upper GI endoscopy Indications: Epigastric abdominal pain, Dysphagia, Heartburn Providers: Sylvain Chavez DO Referring MD: Bennett Blandon Medicines: Sedation Required Anesthesia Staff Assistance Patient Profile: This is a 46 year old female. Refer to note in patient chart for documentation of history and physical. Patient has symptoms of chronic dysphagia. Complications: No immediate complications. Procedure: Pre-Anesthesia Assessment: - Prior to the procedure, a History and Physical was performed, and patient medications and allergies were reviewed. The patient is competent. The risks and benefits of the procedure and the sedation options and risks were discussed with the patient. All questions were answered and informed consent was obtained. Patient identification and proposed procedure were verified by the physician in the pre-procedure area. Mental Status Examination: alert and oriented. Airway Examination: normal oropharyngeal airway and neck mobility. Respiratory Examination: clear to auscultation. CV Examination: normal. Prophylactic Antibiotics: The patient does not require prophylactic antibiotics. Prior Anticoagulants: The patient has taken no previous anticoagulant or antiplatelet agents. ASA Grade Assessment: II - A patient with mild systemic disease. After reviewing the risks and benefits, the patient was deemed in satisfactory condition to undergo the procedure. The anesthesia plan was to use moderate sedation / analgesia (conscious sedation). Immediately prior to administration of medications, the patient was re-assessed for adequacy to receive sedatives. The heart rate, respiratory rate, oxygen saturations, blood pressure, adequacy of pulmonary ventilation, and response to care were monitored throughout the procedure. The physical status of the patient was re-assessed after the procedure. After obtaining informed consent, the endoscope was passed under direct vision. Throughout the procedure, the patient's blood pressure, pulse, and oxygen saturations were monitored continuously. The pediatric colonoscope was introduced through the mouth, and advanced to the second part of duodenum. The upper GI endoscopy was accomplished without difficulty. The patient tolerated the procedure well. Moderate Sedation: Moderate (conscious) sedation was personally administered by an anesthesia professional. The following parameters were monitored: oxygen saturation, heart rate, blood pressure, and response to care. Total physician intraservice time was 15 minutes. Scope In: 10:15:40 AM Scope Out: 10:23:30 AM Total Procedure Duration Time 0 hours 7 minutes 50 seconds Findings: LA Grade B (one or more mucosal breaks greater than 5 mm, not extending between the tops of two mucosal folds) esophagitis with no bleeding was found 38 to 40 cm from the incisors. Biopsies were taken with a cold forceps for histology. Verification of patient identification for the specimen was done. Estimated blood loss was minimal. A moderate Schatzki ring was found in the lower third of the esophagus. A guidewire was placed and the scope was withdrawn. Dilation was performed with a Savary dilator with no resistance at 36 Fr. The dilation site was examined following endoscope reinsertion and showed moderate improvement in luminal narrowing. Estimated blood loss was minimal. A small hiatal hernia was present. Localized mildly erythematous mucosa without bleeding was found in the gastric antrum and at the pylorus. Biopsies were taken with a cold forceps for histology. Verification of patient identification for the specimen was done. Estimated blood loss was minimal. Patchy mildly erythematous mucosa without active bleeding and with no stigmata of bleeding was found in the duodenal bulb. Biopsies were taken with a cold forceps for histology. Verification of patient identification for the specimen was done. Estimated blood loss was minimal. Impression: - LA Grade B reflux esophagitis. Biopsied. - Moderate Schatzki ring. Dilated. - Small hiatal hernia. - Erythematous mucosa in the antrum. Biopsied. - Erythematous duodenopathy. Biopsied. Recommendation: - Written discharge instructions were provided to the patient. - The signs and symptoms of potential delayed complications were discussed with the patient. - Patient has a contact number available for emergencies. - Return to normal activities tomorrow. - Resume previous diet. - Continue present medications. - Await pathology results. - Repeat upper endoscopy in 1 year for surveillance based on pathology results. - Return to GI clinic. Procedure Code(s): --- Professional --- 04935, Esophagogastroduodenoscopy, flexible, transoral; with insertion of guide wire followed by passage of dilator(s) through esophagus over guide wire 51121, 59, Esophagogastroduodenoscopy, flexible, transoral; with biopsy, single or multiple CPT copyright 2017 [employer]. All rights reserved. The codes documented in this report are preliminary and upon nutrition services associate review may be revised to meet current compliance requirements. Sylvain Chavez DO 02/23/2022 10:55:06 AM This report has been signed electronically. Number of Addenda: 1 Note Initiated On: 02/23/2022 10:06 AM Addendum Number: 1 Addendum Date: 08/03/2022 6:28:37 AM MAC was used as sedation for this procedure. Sylvain Chavez DO 08/03/2022 6:28:41 AM This report has been signed electronically.
--- NOTE | 2022-02-23 10:56 | OP.CCLET_ITS ---
08/03/2022 Bennett Blandon Re : Upper GI endoscopy procedure for February Dear Dr. Blandon This procedure was performed on February. My impressions and recommendations are as follows: Impressions : - LA Grade B reflux esophagitis. Biopsied. - Moderate Schatzki ring. Dilated. - Small hiatal hernia. - Erythematous mucosa in the antrum. Biopsied. - Erythematous duodenopathy. Biopsied. Recommendations : - Written discharge instructions were provided to the patient. - The signs and symptoms of potential delayed complications were discussed with the patient. - Patient has a contact number available for emergencies. - Return to normal activities tomorrow. - Resume previous diet. - Continue present medications. - Await pathology results. - Repeat upper endoscopy in 1 year for surveillance based on pathology results. - Return to GI clinic. My findings are described in the full procedure note, which is enclosed. If I can be of further assistance, please feel free to contact me at . Sincerely, Sylvain Chavez DO 02/23/2022 10:55:06 AM This report has been signed electronically.
--- NOTE | 2022-02-23 11:02 | OP.COLON_ITS ---
Patient Name: February Procedure Date: 02/23/2022 10:24 AM Date of : 1975 Age: 46 Procedure: Colonoscopy Indications: Follow-up for history of adenomatous polyps in the colon Providers: Sylvain Chavez DO Referring MD: Bennett Blandon Medicines: See the Anesthesia note for documentation of the administered medications Patient Profile: This is a 46 year old female. Refer to note in patient chart for documentation of history and physical. Patient has symptoms of chronic dysphagia. Last Colonoscopy: more than 3 years ago. Complications: No immediate complications. Procedure: Pre-Anesthesia Assessment: - Prior to the procedure, a History and Physical was performed, and patient medications and allergies were reviewed. The patient is competent. The risks and benefits of the procedure and the sedation options and risks were discussed with the patient. All questions were answered and informed consent was obtained. Patient identification and proposed procedure were verified by the physician in the pre-procedure area. Mental Status Examination: alert and oriented. Airway Examination: normal oropharyngeal airway and neck mobility. Respiratory Examination: clear to auscultation. CV Examination: normal. Prophylactic Antibiotics: The patient does not require prophylactic antibiotics. Prior Anticoagulants: The patient has taken no previous anticoagulant or antiplatelet agents. ASA Grade Assessment: II - A patient with mild systemic disease. After reviewing the risks and benefits, the patient was deemed in satisfactory condition to undergo the procedure. The anesthesia plan was to use moderate sedation / analgesia (conscious sedation). Immediately prior to administration of medications, the patient was re-assessed for adequacy to receive sedatives. The heart rate, respiratory rate, oxygen saturations, blood pressure, adequacy of pulmonary ventilation, and response to care were monitored throughout the procedure. The physical status of the patient was re-assessed after the procedure. After I obtained informed consent, the scope was passed under direct vision. Throughout the procedure, the patient's blood pressure, pulse, and oxygen saturations were monitored continuously. The pediatric colonoscope was introduced through the anus and advanced to the terminal ileum. The colonoscopy was performed without difficulty. The patient tolerated the procedure well. The quality of the bowel preparation was inadequate. Moderate Sedation: Moderate (conscious) sedation was administered by the endoscopy nurse and supervised by the endoscopist. The patient's oxygen saturation, heart rate, blood pressure and response to care were monitored. Total physician intraservice time was 15 minutes. Scope In: 10:25:59 AM Scope Withdrawal Time 0 hours 10 minutes 7 seconds Scope Out: 10:48:17 AM Total Procedure Duration Time 0 hours 22 minutes 18 seconds Findings: Extensive amounts of semi-liquid stool was found in the entire colon, precluding visualization. Lavage of the area was performed using greater than 500 mL of sterile water, resulting in incomplete clearance with continued poor visualization. A 5 mm polyp was found in the splenic flexure. The polyp was sessile. The polyp was removed with a hot snare. Resection and retrieval were complete. Verification of patient identification for the specimen was done. Estimated blood loss was minimal. A patchy area of the terminal ileum was congested. Biopsies were taken with a cold forceps for histology. Verification of patient identification for the specimen was done. Estimated blood loss was minimal. An area of mildly congested mucosa was found in the sigmoid colon, at the splenic flexure, at the hepatic flexure and in the ascending colon. Biopsies were taken with a cold forceps for histology. Verification of patient identification for the specimen was done. Estimated blood loss was minimal. The exam was otherwise without abnormality on direct and retroflexion views. Hemorrhoids were found on perianal exam. Impression: - Preparation of the colon was inadequate. - Stool in the entire examined colon. - One 5 mm polyp at the splenic flexure, removed with a hot snare. Resected and retrieved. - Congested mucosa in the terminal ileum. Biopsied. - Congested mucosa in the sigmoid colon, at the splenic flexure, at the hepatic flexure and in the ascending colon. Biopsied. - The examination was otherwise normal on direct and retroflexion views. Recommendation: - Discharge patient to home. - Resume previous diet. - Continue present medications. - Await pathology results. - Repeat colonoscopy in 6 months because the bowel preparation was suboptimal. Procedure Code(s): --- Professional --- 34417, Colonoscopy, flexible; with removal of tumor(s), polyp(s), or other lesion(s) by snare technique 13084, 59, Colonoscopy, flexible; with biopsy, single or multiple G0500, Moderate sedation services provided by the same physician or other qualified health health care technician performing a gastrointestinal endoscopic service that sedation supports, requiring the presence of an independent trained observer to assist in the monitoring of the patient's level of consciousness and physiological status; initial 15 minutes of intra-service time; patient age 5 years or older (additional time may be reported with 97605, as appropriate) CPT copyright 2017 [employer]. All rights reserved. The codes documented in this report are preliminary and upon hat forming machine operator review may be revised to meet current compliance requirements. Sylvain Chavez DO 02/23/2022 11:02:13 AM This report has been signed electronically. Number of Addenda: 1 Note Initiated On: 02/23/2022 10:24 AM Addendum Number: 1 Addendum Date: 08/03/2022 6:28:48 AM MAC was used as sedation for this procedure. Sylvain Chavez DO 08/03/2022 6:28:52 AM This report has been signed electronically.
--- NOTE | 2022-02-23 11:03 | OP.CCLET_ITS ---
08/03/2022 Bennett Blandon Re : Colonoscopy procedure for February Dear Dr. Blandon This procedure was performed on February. My impressions and recommendations are as follows: Impressions : - Preparation of the colon was inadequate. - Stool in the entire examined colon. - One 5 mm polyp at the splenic flexure, removed with a hot snare. Resected and retrieved. - Congested mucosa in the terminal ileum. Biopsied. - Congested mucosa in the sigmoid colon, at the splenic flexure, at the hepatic flexure and in the ascending colon. Biopsied. - The examination was otherwise normal on direct and retroflexion views. Recommendations : - Discharge patient to home. - Resume previous diet. - Continue present medications. - Await pathology results. - Repeat colonoscopy in 6 months because the bowel preparation was suboptimal. My findings are described in the full procedure note, which is enclosed. If I can be of further assistance, please feel free to contact me at . Sincerely, Sylvain Chavez, 02/23/2022 11:02:13 AM This report has been signed electronically.
== END 2022-02-23 23:59 | disposition home or self-care (01) ==
LOC: EN 08:46 → AC 08:46
PROVIDERS: PCP Family Medicine; Referring Provider Family Medicine; Visit Provider Internal Medicine Gastroenterology
PROC: 0DJD8ZZ Inspection of Lower Intestinal Tract, Via Natural or Artificial Opening Endoscopic (ICD-10-PCS; CPT 45378; principal; 2022-02-23 09:55)
DX: K63.5 Polyp of colon (principal); K21.00 Gastro-esophageal reflux disease with esophagitis, without bleeding; K44.9 Diaphragmatic hernia without obstruction or gangrene; K29.70 Gastritis, unspecified, without bleeding; K22.70 Barrett's esophagus without dysplasia; K64.4 Residual hemorrhoidal skin tags; K22.2 Esophageal obstruction; R13.10 Dysphagia, unspecified; F17.210 Nicotine dependence, cigarettes, uncomplicated; Z80.0 Family history of malignant neoplasm of digestive organs; Z79.899 Other long term (current) drug therapy; Z86.010 Personal history of colon polyps; Z20.822 Contact with and (suspected) exposure to COVID-19
CPT/HCPCS: 45385; 45380; 43239; 43248; 87426; 88305; 88313; 88341; 88342; J7120; J2405

== ENCOUNTER → 2022-02-25 | Outpatient (CLI) | payer MEDICAID, SELFPAY ==
[2021-08-31 15:12] VITALS: BMI 23.6
--- NOTE | 2022-02-25 08:44 | US_ITS ---
EXAM: US ABDOMEN COMPLETE CLINICAL INDICATION: diarrhea TECHNIQUE: Real-time ultrasound of the abdomen with image documentation. This report was created using [employer] report generation technology. COMPARISON: None. FINDINGS: LIVER: Increased echogenicity of the liver is nonspecific but most commonly associated with hepatic steatosis. Liver measures 14.0 cm. No hepatic masses. GALLBLADDER: Unremarkable. No shadowing gallstone. No gallbladder wall thickening is demonstrated. No pericholecystic fluid. Negative sonographic Russell''s sign. COMMON BILE DUCT: Unremarkable as visualized. The proximal common bile duct is within normal limits for the patient''s age. PANCREAS: Unremarkable as visualized. No focal abnormality is demonstrated in the pancreas. No pancreatic ductal dilatation. KIDNEYS: Unremarkable. There is no hydronephrosis. No shadowing calculus. No focal lesion or perinephric collection is demonstrated. SPLEEN: Unremarkable. The spleen is normal in size and homogeneous in echotexture. AORTA: Unremarkable. Submitted longitudinal images of the intra-abdominal aorta demonstrate no gross abnormalities and are unremarkable. INFERIOR VENA CAVA: Unremarkable. The IVC is patent. FREE FLUID: There is no free fluid. US/Abdomen Complete IMPRESSION: Increased echogenicity of the liver is nonspecific but most commonly associated with hepatic steatosis. Electronically Signed: Isaiah Box MD ([place]) at 15:30 EDT ,
== END | disposition home or self-care (01) ==
LOC: US 08:43
PROVIDERS: PCP Family Medicine; Referring Provider Nurse Practitioner Adult Health; Visit Provider Nurse Practitioner Adult Health
DX: R74.8 Abnormal levels of other serum enzymes (principal); K52.9 Noninfective gastroenteritis and colitis, unspecified
CPT/HCPCS: 76700

== ENCOUNTER 2022-03-03 21:16 | Emergency (ER) | payer MEDICAID, SELFPAY ==
[2021-08-31 15:12] VITALS: BMI 23.6
[2022-03-03 21:18] VITALS: BP 158/76; PULSE 92; RESP 16; TEMP 36.3; O2SAT 95; BMI 27.8
--- NOTE | 2022-03-03 21:57 | EX.ED.DYSGE1 ---
HPI History of Present Illness Chief Complaint: Foreign Body Informant: patient Narrative Narrative: 46-year-old female presented to the emergency department out of concern for foreign body in her throat. She states that she was eating some garlic bread that had a sloppy Gino concoction on top of it when she began to cough and gag. States that she feels that there is hamburger still at the junction of her nose and throat. She states that she is tried to clear her throat but it still remains. She has been handling her secretions normally. No bleeding. PFSH PFSH Medical History Anxiety Arthritis Atherosclerotic heart disease of [place] coronary artery without angina pectoris Back pain Cardiology follow-up encounter Chronic back pain Chronic cough COPD (chronic obstructive pulmonary disease) Depression Difficulty chewing Dysuria Essential hypertension Gastric reflux Hidradenitis suppurativa High cholesterol History of echocardiogram history of intracerebral aneurysm History of stress test Hx of colonic polyp Hyperlipidemia Hypertension Interstitial cystitis Ischemic cardiomyopathy Marijuana use Migraine headache Monilial rash Non-STEMI (non-ST elevated myocardial infarction) Normal stress echocardiogram Post-menopausal Renal cysts, acquired, bilateral Seasonal allergies Seizures Shortness of breath on exertion Smoker Smoking addiction Wears dentures Home Medications acetaminophen 1,000 mg PO TID PRN PRN #20 tab 11/26/18 [Rx Last Taken Unknown] ibuprofen 600 mg PO Q8H PRN PRN #30 tab 11/26/18 [Rx Last Taken Unknown] Nebulizer machine #1 ea 02/11/19 [Rx Last Taken Unknown] nitroglycerin 0.4 mg sublingual tablet 0.4 mg SUBLINGUAL Q5-15M PRN #25 tab 06/14/20 [Rx Last Taken Unknown] aspirin 81 mg tablet,delayed release 81 mg PO DAILY #90 tab 12/31/20 [Rx Last Taken Unknown] pseudoephedrine-guaifenesin ER 60 mg-600 mg tablet,extend release 12hr 1 tab PO Q12H PRN #30 tab 09/01/21 [Rx Last Taken Unknown] naproxen [Naprosyn] 500 mg PO BID PRN #10 tab 09/22/21 [Rx Last Taken Unknown] atorvastatin 80 mg tablet 80 mg PO QHS #90 tab 12/14/21 [Rx Last Taken Unknown] clopidogrel 75 mg tablet 75 mg PO DAILY #90 tab 12/14/21 [Rx Last Taken 02/19/22] lisinopril 10 mg tablet 10 mg PO DAILY #90 tab 12/14/21 [Rx Last Taken Unknown] pantoprazole 40 mg tablet,delayed release 40 mg PO DAILY #30 tab 12/14/21 [Rx Last Taken Unknown] sucralfate 1 gram tablet 1 g PO TID 30 Days #90 tab 12/14/21 [Rx Last Taken Unknown] multivitamin 1 tab PO DAILY #30 tab 01/19/22 [Rx Last Taken Unknown] phenazopyridine 100 mg tablet 100 mg PO TID PRN #6 tab 01/19/22 [Rx Last Taken Unknown] budesonide-formoterol HFA 160 mcg-4.5 mcg/actuation aerosol inhaler 2 puff INHALATION BID #10.2 g 01/23/22 [Rx Last Taken Unknown] cetirizine [Zyrtec] 10 mg PO PRN PRN 02/21/22 [History Last Taken Unknown] Allergy/AdvReac Type Severity Reaction Status Date / Time Latex, Natural Rubber Allergy Severe hives Verified 03/03/22 21:18 nitrofurantoin Allergy Severe Hives Verified 03/03/22 21:18 [From Macrodantin] bupropion HCl AdvReac Other Verified 03/03/22 21:18 [From Wellbutrin] prednisone AdvReac Other Verified 03/03/22 21:18 Family History Mother Myocardial infarction Diabetes Father Myocardial infarction Colon cancer Diabetes Grandmother CVA (cerebral vascular accident) Diabetes Surgical History History of cardiac catheterization History of coronary artery stent placement (12/02/17) History of oophorectomy History of total hysterectomy Social History Smoking Status: Current every day smoker tobacco type: cigarettes alcohol intake: former substance use type: marijuana and other details: daily marijuana caffeine: Yes Type: coffee what type of physical activity do you participate in: none seatbelt use: sometimes do you feel safe at home: Yes ROS ROS ED Constitutional Constitutional ED: Denies chills, fever(s) or weight loss Eyes Eyes: Denies change in vision or diplopia ENT ENT ED: Denies ear pain, rhinorrhea or sore throat Cardiovascular Cardiovascular: Denies chest pain, orthopnea, palpitations or racing heartbeat Respiratory/Chest Respiratory/Chest: Denies cough, dyspnea or orthopnea Gastrointestinal Gastrointestinal: Denies abdominal pain, diarrhea, nausea or vomiting Genitourinary Genitourinary ED: Denies dysuria, hematuria or urinary frequency Musculoskeletal Musculoskeletal: Denies arthralgias or myalgias Integumentary Denies abscess or rash Neurologic Neurologic: Denies headache(s) or weakness Psychiatric Psychiatric: Denies anxiety, depression, suicidal ideation or suicidal thoughts Endocrine Endocrinology: Denies polydipsia, polyphagia or polyuria Allergic/Immunologic Allergic/Immunologic ED: Denies mouth swelling, tongue swelling or urticaria EXAM Physical Exam Const Vital Signs: 03/03/22 21:18 03/03/22 21:24 Temperature 97.3 F L Temperature Source Temporal Pulse Rate 92 Respiratory Rate 16 Respiratory Effort Normal Non-Labored Respiratory Pattern Normal Blood Pressure 158/76 H Blood Pressure Mean 103 Pulse Ox 95 Oxygen Delivery Method Room Air Positive well nourished and well developed General Appearance ED: well developed HEENT Reports normocephalic, head/scalp atraumatic, TM's clear and moist mucous membranes Negative for trauma Tympanic Membrane ED: Yes TM's clear Eyes PERRL and EOMs intact bilaterally Neck no lymphadenopathy, supple and no JVD Resp normal respiratory effort and clear to auscultation bilaterally Cardio regular rate, regular rhythm and no murmurs GI normal to inspection, nondistended, normoactive bowel sounds and non-tender Palpation: soft Back/Spine no CVA tenderness and normal ROM Extremity normal to inspection General Extremety ED: Negative for edema General Extremity: Negative for edema Neuro oriented x3 and CN's II-XII intact bilaterally Sensorium / Orientation: alert Motor Exam: strength 5/5 throughout Psych mental status grossly normal Mood & Affect: Negative for depressed or tearful Skin no rashes or lesions noted and no wounds MDM MDM MDM Narrative Medical decision making narrative: Patient was able to drink a Coke without difficulty. Patient received a GI cocktail and states it did help with her discomfort. My thought is that this is most likely a pharyngeal abrasion from the coughing and gagging/vomiting. If there is a small piece of meat I suspect that it should resolve during the night. If no improvement follow-up with ENT Discharge Plan Triage Chief Complaint: Foreign Body ED Provider: [employer] Dx/Rx/DC Orders Clinical Impression: Abrasion of pharynx Instructions: ED Pharyngeal Abrasion Prescriptions: No Action nitroglycerin 0.4 mg tablet, sublingual 0.4 mg sublingual Q5-15M PRN (Reason: cp) Qty: 25 RF: 3 pseudoephedrine-guaifenesin [Mucinex D] 60-600 mg tablet extended release 12 hr 1 tab PO Q12H PRN (Reason: cold symptoms) Qty: 30 RF: 0 atorvastatin 80 mg tablet 80 mg PO QHS Qty: 90 RF: 3 clopidogrel 75 mg tablet 75 mg PO DAILY Qty: 90 RF: 3 lisinopril 10 mg tablet 10 mg PO DAILY Qty: 90 RF: 3 pantoprazole [Protonix] 40 mg tablet,delayed release (DR/EC) 40 mg PO DAILY Qty: 30 RF: 4 sucralfate [Carafate] 1 gram tablet 1 g PO TID 30 Days Qty: 90 RF: 1 phenazopyridine 100 mg tablet 100 mg PO TID PRN (Reason: pain) Qty: 6 RF: 0 multivitamin Tablet 1 tab PO DAILY Qty: 30 RF: 3 acetaminophen 500 MG tablet 1,000 mg PO TID PRN PRN (Reason: Fever) Qty: 20 RF: 0 ibuprofen 200 MG tablet 600 mg PO Q8H PRN PRN (Reason: Fever) Qty: 30 RF: 0 naproxen [Naprosyn] 500 mg tablet 500 mg PO BID PRN (Reason: pain) Qty: 10 RF: 0 Zyrtec 10 mg capsule 10 mg PO PRN PRN (Reason: ALLERGIES) RF: 0 (DME) Nebulizer machine Qty: 1 RF: 0 aspirin [Adult Aspirin Regimen] 81 mg tablet,delayed release (DR/EC) 81 mg PO DAILY Qty: 90 RF: 2 budesonide-formoterol [Symbicort] 160-4.5 mcg/actuation HFA aerosol inhaler 2 puff INHALATION BID Qty: 10.2 RF: 2 Primary Care Provider: Bennett Blandon Referrals: Kleber Leger MD [STAFF PHYSICIAN] - 3-5 Days if not improving Bennett Blandon DO [Primary Care Provider] - Disposition Disposition: Home, Self Care
[2022-03-03] MEDS: Mag Hydrox/Al Hydrox/Simeth 30 ML UDC PO (22:11)
[2022-03-03 22:38] VITALS: BP 144/74; PULSE 73; RESP 18; O2SAT 96
== END 2022-03-03 22:38 | disposition home or self-care (01) ==
PROVIDERS: Emergency Provider Emergency Medicine; PCP Family Medicine; Visit Provider Emergency Medicine
DX: S10.11XA Abrasion of throat, initial encounter (principal); J44.9 Chronic obstructive pulmonary disease, unspecified; E78.5 Hyperlipidemia, unspecified; I10 Essential (primary) hypertension; F17.210 Nicotine dependence, cigarettes, uncomplicated; I25.5 Ischemic cardiomyopathy; I25.10 Atherosclerotic heart disease of native coronary artery without angina pectoris; M19.90 Unspecified osteoarthritis, unspecified site; I25.2 Old myocardial infarction; K21.9 Gastro-esophageal reflux disease without esophagitis; Z79.899 Other long term (current) drug therapy; Z79.02 Long term (current) use of antithrombotics/antiplatelets; Z79.82 Long term (current) use of aspirin; X58.XXXA Exposure to other specified factors, initial encounter; Y93.89 Activity, other specified; Y99.9 Unspecified external cause status; Y92.9 Unspecified place or not applicable
CPT/HCPCS: 99283

== ENCOUNTER → 2022-03-09 | Outpatient (CLI) | payer MEDICAID, SELFPAY ==
[2021-08-31 15:12] VITALS: BMI 23.6
[2022-03-09 11:56] LABS: Erythrocyte Sedimentation Rate 20 mm/hr (0-30)
[2022-03-09 11:57] LABS: Absolute Lymphocyte Count 2.63 X10^3/uL (0.83-4.51); Absolute Neutrophil Count 5.8 X10^3/uL (2.0-7.7); Basophil# 0.02 X10^3/uL; Basophil% 0.2 % (0-1); Eosinophil# 0.14 X10^3/uL; Eosinophils% 1.5 % (0-5); Hematocrit 40.8 % (37-47); Hemoglobin 13.6 g/dL (12.0-15.0); Lymphocyte # 2.63 X10^3/ul (0.83-4.51); Lymphocyte % 28.7 % (19-41); Mean Corp Hgb Conc 33.3 g/dL (32-36); Mean Corpuscular Hgb 32.5 pg (27.0-32.0); Mean Corpuscular Volume 97.6 fL (81-99); Mean Platelet Vol. 8.7 fl (6.2-12.0); Monocyte# 0.57 X10^3/uL; Monocyte% 6.2 % (0-10); NRBC Flagged by Analyzer 0 % (0-5); Neutrophil # 5.78 X10^3/uL (2.7-7.7); Neutrophil % 63.2 % (47-70); Platelet Count 267 K/mm3 (150-450); RBC Distribution Width SD 46.7 fl (35.1-43.9); Red Blood Count 4.18 M/mm3 (4.2-5.4); White Blood Count 9.2 K/mm3 (4.4-11.0)
[2022-03-09 12:03] LABS: International Normalized Ratio 0.9; Prothrombin Time (Protime)PT. 11.9 SECONDS (11.7-14.9)
[2022-03-09 12:28] LABS: AST(SGOT) 16 U/L (15-37); Alanine Aminotransfer ALT/SGPT 20 U/L (13-56); Albumin, Serum 3.6 g/dL (3.2-5.0); Alkaline Phosphatase 155 U/L (45-117); Anion Gap 5 (5-15); BUN 7 mg/dL (7-18); BUN/Creat Ratio 10.1 RATIO (10-20); Calcium,Total 8.5 mg/dL (8.5-10.1); Chloride 108 mmol/L (98-107); Creatinine, Serum 0.69 mg/dL (0.55-1.02); EST Glomerular Filtration Rate 97 mL/min (>60); Est Glom Filt Rate - Afr Amer 117 mL/min (>60); Ferritin 22 ng/mL (8-252); Globulin 3.7 g/dL (2.2-4.2); Glucose 92 mg/dL (74-106); Potassium 3.8 mmol/L (3.5-5.1); Protein, Total 7.3 g/dL (6.4-8.2); Sodium Level 140 mmol/L (136-145)
[2022-03-09 13:00] LABS: HIV - WCH Non-Reactive (Nonreactive)
[2022-03-14 08:10] LABS: Angiotensin Convert Enzyme 47 U/L (14-82); Ceruloplasmin 32.6 mg/dL (19.0-39.0); Cytoplasmic Ab (C-ANCA) <1:20 titer (Neg:<1:20)
[2022-03-14 16:41] LABS: AFP, Tumor Marker < 0.9 ng/mL (0.0-6.4); Copper, Serum or Plasma 142 ug/dL (80-158); Haptoglobin 240 mg/dL (42-296); Perinuclear Ab (P-ANCA) <1:20 titer (Neg:<1:20)
== END | disposition home or self-care (01) ==
LOC: LAB 11:28
PROVIDERS: Nurse Practitioner Adult Health; PCP Family Medicine; Visit Provider Nurse Practitioner Gerontology
DX: K76.0 Fatty (change of) liver, not elsewhere classified (principal)
CPT/HCPCS: 36415; 80053; 82105; 82140; 82164; 82390; 82525; 82728; 83010; 85025; 85610; 85652; 86140; 86256; 86703

== ENCOUNTER → 2022-03-15 | Outpatient (CLI) | payer MEDICAID, SELFPAY ==
[2021-08-31 15:12] VITALS: BMI 23.6
--- NOTE | 2022-03-15 08:29 | US_ITS ---
STUDY: ABDOMINAL ULTRASOUND - ELASTOGRAPHY REASON FOR VISIT: Female, 46 years old. Fatty infiltration of the liver. TECHNIQUE: Liver stiffness measurements were obtained on a [employer] RS 85 ultrasound machine using a CA 1-7 probe following the SRU guidelines. 3 measurements were obtained using a 2-D-SWE method. The IQR/M was 19% suggesting a quality data set. TECHNICAL QUALITY: Adequate. COMPARISON: Comparison is made with prior examination dated 02/25/2022. FINDINGS: Liver: Fatty infiltration of the liver. Median liver stiffness measured 8.4 kPa. US/Elastography Parenchyma/Organ IMPRESSION: Liver stiffness measures 8.4 kPa compatible with F2-F3 (Mild to moderate liver fibrosis) Metavir score. Electronically Signed: Rodney Saleh MD at 12:57 EDT ,
== END | disposition home or self-care (01) ==
LOC: US 08:28
PROVIDERS: PCP Family Medicine; Referring Provider Nurse Practitioner Adult Health; Visit Provider Nurse Practitioner Adult Health
DX: K76.0 Fatty (change of) liver, not elsewhere classified (principal)
CPT/HCPCS: 76981

== ENCOUNTER 2022-07-19 08:05 | Emergency (ER) | payer MEDICAID, SELFPAY ==
[2021-08-31 15:12] VITALS: BMI 23.6
[2022-07-19 08:07] VITALS: BP 150/76; PULSE 85; RESP 14; TEMP 36.8; O2SAT 93; BMI 24.7
--- NOTE | 2022-07-19 08:21 | EKG12_ITS ---
Test Reason : cp Blood Pressure : / mmHG Vent. Rate : 073 BPM Atrial Rate : 073 BPM P-R Int : 122 ms QRS Dur : 076 ms QT Int : 398 ms P-R-T Axes : 069 -05 -07 degrees QTc Int : 438 ms Normal sinus rhythm T wave abnormality, consider anterior ischemia Abnormal ECG Confirmed by KASEY ANGELA, ETIENNE ([id number]), deputy editor in chief ADDI MOREAU ([id number]) on 07/21/2022 12:40:56 PM Referred By: Confirmed By:ETIENNE PARKS MD
--- NOTE | 2022-07-19 08:22 | EDS_ITS ---
HPI History of Present Illness Chief Complaint: Chest Pain Narrative Narrative: Patient with past medical history of coronary artery disease presents with right-sided chest pain that she has had for approximately 9 days. She states its relatively constant and on the right side. It is worse with bending over and certain movements. She [facility] where [facility] was diagnosed with bronchitis. She was put on a Z-Abdoulaye and given ibuprofen. She was also diagnosed with costochondritis. She returned there, and was told she needed to come to the emergency department for chest x-ray. She denies any nausea or vomiting, no diaphoresis. She has occasional cough. Of significance, she continues to smoke but does have a stent in her LAD which was placed in 2018. She does also have problems with esophagitis and COPD. [facility] Medical History Anxiety Arthritis Atherosclerotic heart disease of [place] coronary artery without angina pectoris Back pain Dong's esophagus Cardiology follow-up encounter Chronic back pain Chronic cough COPD (chronic obstructive pulmonary disease) Depression Difficulty chewing Dysuria Essential hypertension Fatty liver Gastric reflux Gastritis GERD (gastroesophageal reflux disease) Hidradenitis suppurativa High cholesterol History of echocardiogram history of intracerebral aneurysm History of stress test Hx of colonic polyp Hyperlipidemia Hypertension Interstitial cystitis Ischemic cardiomyopathy Marijuana use Migraine headache Monilial rash Non-STEMI (non-ST elevated myocardial infarction) Normal stress echocardiogram Post-menopausal Renal cysts, acquired, bilateral Seasonal allergies Seizures Shortness of breath on exertion Smoker Smoking addiction Tubular adenoma of colon Wears dentures Home Medications ibuprofen 200 mg tablet 600 mg PO Q8H PRN PRN Fever #30 tabs 11/26/18 [Rx Last Taken Unknown] Nebulizer machine #1 ea 02/11/19 [Rx Last Taken Unknown] aspirin 81 mg tablet,delayed release (Adult Aspirin Regimen) 81 mg PO DAILY #90 tabs 12/31/20 [Rx Last Taken Unknown] pseudoephedrine-guaifenesin ER 60 mg-600 mg tablet,extend release 12hr (Mucinex D) 1 tab PO Q12H PRN cold symptoms #30 tabs 09/01/21 [Rx Last Taken Unknown] atorvastatin 80 mg tablet 80 mg PO QHS #90 tabs 12/14/21 [Rx Last Taken Unknown] clopidogrel 75 mg tablet 75 mg PO DAILY #90 tabs 12/14/21 [Rx Last Taken 02/19/22] phenazopyridine 100 mg tablet 100 mg PO TID PRN pain #6 tabs 01/19/22 [Rx Last Taken Unknown] budesonide-formoterol HFA 160 mcg-4.5 mcg/actuation aerosol inhaler (Symbicort) 2 puff inhalation BID #10.2 grams 01/23/22 [Rx Last Taken Unknown] pantoprazole 40 mg tablet,delayed release (Protonix) 40 mg PO BID #120 tabs 03/09/22 [Rx Last Taken Unknown] Allergy/AdvReac Type Severity Reaction Status Date / Time Latex, Natural Rubber Allergy Severe hives Verified 07/19/22 08:06 nitrofurantoin Allergy Severe Hives Verified 07/19/22 08:06 [From Macrodantin] bupropion HCl AdvReac Other Verified 07/19/22 08:06 [From Wellbutrin] prednisone AdvReac Other Verified 07/19/22 08:06 Family History Mother Myocardial infarction Diabetes Father Myocardial infarction Colon cancer Diabetes Grandmother CVA (cerebral vascular accident) Diabetes Surgical History History of cardiac catheterization History of coronary artery stent placement (12/02/17) History of oophorectomy History of total hysterectomy Social History Smoking Status: Current every day smoker tobacco type: cigarettes alcohol intake: former substance use type: marijuana and other details: daily marijuana caffeine: Yes Type: coffee what type of physical activity do you participate in: none seatbelt use: sometimes do you feel safe at home: Yes ROS ROS ED ROS Narrative Constitutional: No fever, no chills. HEENT: No sore throat. No neck pain. No loss of vision. No rhinorrhea. Cardiovascular: Right-sided chest pain. No palpitations. No pedal edema. Respiratory: No cough, no shortness of breath. Abdominal: No abdominal pain. No nausea. No vomiting. Genitourinary: No dysuria. No hematuria. Musculoskeletal: No myalgias. No arthralgias. Neurologic: No headaches. No dizziness. No lightheadedness. Skin: No rash. No change in color. Psychiatric: No depression. No anxiety. EXAM Physical Exam Narrative Exam Narrative: Afebrile. Vital signs noted. HEENT: Normocephalic. Atraumatic. PERRL, EOMI. Neck soft and supple. No point tenderness or step off. Cardiovascular: Regular rate and rhythm. No murmurs, rubs, or gallops appreciated. Mild reproducible right-sided chest pain and right pectoral area/parasternal, no crepitance. Respiratory: No tachypnea. Lungs clear to auscultation bilaterally. Gastrointestinal: Abdomen soft, nontender, with normoactive bowel sounds. No rebound or guarding. Neurological: Awake. Alert. Nonfocal, nonlateralizing. Skin: No rash. Normal color. No pallor. Musculoskeletal: No pedal edema. Full range of motion extremities. Const Vital Signs: 07/19/22 08:07 07/19/22 08:52 07/19/22 08:56 Temperature 98.2 F 98.2 F Temperature Source Temporal Temporal Pulse Rate 85 74 Respiratory Rate 14 21 H Respiratory Effort Blood Pressure 150/76 H 141/80 H Blood Pressure Mean 100 100 Pulse Ox 93 92 94 Oxygen Delivery Method Room Air Room Air Room Air 07/19/22 08:57 Temperature Temperature Source Pulse Rate Respiratory Rate Respiratory Effort Normal Non-Labored Blood Pressure Blood Pressure Mean Pulse Ox Oxygen Delivery Method Heart Score History: Slightly/Non-Suspicious ECG: Normal Age: >45 - <65 years Risk Factors: >/= 3 Risk Factors or History of CAD Troponin: </= Normal Limit Score: 3 MDM MDM MDM Narrative Medical decision making narrative: Chest pain work-up was pursued. I do feel that is more than likely related to costochondritis, versus intercostal muscle strain. It has been constant. I do feel that she could be ruled out with a single high-sensitivity troponin as it is greater than 6 hours. Also I feel laboratory work is indicated given her history of continued smoking and coronary artery disease with stenting. EKG interpreted by myself demonstrates normal sinus rhythm at 73 bpm without ectopy or acute ST changes. No STEMI. No significant change from EKG dated September 18, 2021. Chest x-ray in 2 views interpreted by myself shows no evidence of pneumonia or pneumothorax. CBC is grossly normal with a normal white count of 6.4, hemoglobin normal at 13.8 with a normal platelet count of 250. BMP shows glucose appropriately elevated with a normal/low anion gap of 3. Chloride slightly elevated at 109. High-sensitivity troponin is 3. This is greater than a 6-hour troponin. I do feel that the patient is experiencing more chest wall pain/costochondritis. At this point in time, I feel she can be discharged safely home to follow-up with her primary care physician. Return instructions to the emergency department were reviewed. She will continue her ibuprofen. I do not feel narcotic pain medication is indicated. Smoking cessation was discussed. Disposition is discharged home in stable condition. Lab Data Attestation: I reviewed the patient's lab results. Labs: Laboratory Results - last 24 hr 07/19/22 07/19/22 07/19/22 08:55 08:55 09:18 WBC Cancelled 6.4 Corrected WBC Cancelled RBC Cancelled 4.28 Hgb Cancelled 13.8 Hct Cancelled 42.0 MCV Cancelled 98.1 MCH Cancelled 32.2 H MCHC Cancelled 32.9 RDW Std Deviation Cancelled 50.4 H RDW Coeff of Tanja Cancelled 13.9 Plt Count Cancelled 250 MPV Cancelled 8.5 Immature Gran % (Auto) Cancelled 0.300 Neut % (Auto) Cancelled 53.8 Lymph % (Auto) Cancelled 33.6 [place] % (Auto) Cancelled 9.1 Eos % (Auto) Cancelled 2.7 Baso % (Auto) Cancelled 0.5 Absolute Neuts (auto) Cancelled 3.4 Absolute Lymphs (auto) Cancelled 2.15 Total Counted Cancelled Neutrophils % (Manual) Cancelled Band Neutrophils % Cancelled Lymphocytes % (Manual) Cancelled Monocytes % (Manual) Cancelled Eosinophils % (Manual) Cancelled Basophils % (Manual) Cancelled Metamyelocytes % Cancelled Myelocytes % Cancelled Promyelocytes % Cancelled Blast Cells % Cancelled Plasma Cell % (Manual) Cancelled Other Cells % Cancelled Nucleated RBC % Cancelled 0 Nucleated RBCs/100 WBC Cancelled Differential Comment Cancelled Diff Path Review Cancelled Hypersegmented Neuts Cancelled Atypical Lymphocytes Cancelled Reactive Lymphocytes Cancelled Smudge Cells Cancelled Toxic Granulation Cancelled Toxic Vacuolation Cancelled Dohle Bodies Cancelled Ama Rods Cancelled Platelet Estimate Cancelled Plt Morphology Comment Cancelled RBC Morphology Cancelled Polychromasia Cancelled Hypochromasia Cancelled Poikilocytosis Cancelled Basophilic Stippling Cancelled Anisocytosis Cancelled Microcytosis Cancelled Macrocytosis Cancelled Spherocytes Cancelled Sickle Cells Cancelled Target Cells Cancelled Tear Drop Cells Cancelled Ovalocytes Cancelled Stomatocytes Cancelled [place] Bodies Cancelled [place] Cells Cancelled Bite Cells Cancelled Crenated Cell Cancelled Acanthocytes (Spur) Cancelled Rouleaux Cancelled Schistocytes Cancelled Sodium 142 Potassium 4.0 Chloride 109 H Carbon Dioxide 30.0 Anion Gap 3 L BUN 10 Creatinine 0.79 Estim Creat Clear Calc 68.88 Est GFR (MDRD) Af Amer 99 Est GFR (MDRD) Non-Af 82 BUN/Creatinine Ratio 12.6 Glucose 115 H Calcium 8.8 Troponin I High Sens 3 Radiography Chest X-Ray - ED: 2 View, Read by ED Physician, Normal and No Acute Disease Diagnostic Testing: Clinical Impression(s) from Imaging Studies Chest X-Ray 07/19/22 08:55 IMPRESSION: Hyperinflation. The lungs are clear. Electronically Signed: Rodney aSleh MD at 9:29 EDT , Discharge Plan Triage Chief Complaint: Chest Pain Other Complaint: CPR ED Provider: Rich Oakley Dx/Rx/DC Orders Clinical Impression: Atherosclerotic heart disease of [place] coronary artery without angina pectoris, Intercostal pain, Chest pain Instructions: ED Chest Pain, Uncertain Cause, ED Chest Pain Wall Costochond Ch, ED Chest Wall Strain Prescriptions: No Action pseudoephedrine-guaifenesin [Mucinex D] 60-600 mg tablet extended release 12 hr 1 tab PO Q12H PRN (Reason: cold symptoms) Qty: 30 0RF atorvastatin 80 mg tablet 80 mg PO QHS Qty: 90 3RF clopidogrel 75 mg tablet 75 mg PO DAILY Qty: 90 3RF pantoprazole [Protonix] 40 mg tablet,delayed release (DR/EC) 40 mg PO BID Qty: 120 0RF Rx Instructions: take one pill twice a day for 2 months, then resume once a day dosing phenazopyridine 100 mg tablet 100 mg PO TID PRN (Reason: pain) Qty: 6 0RF ibuprofen 200 MG tablet 600 mg PO Q8H PRN PRN (Reason: Fever) Qty: 30 0RF (DME) Nebulizer machine Qty: 1 0RF Dose Instruction: As directed Rx Instructions: As directed aspirin [Adult Aspirin Regimen] 81 mg tablet,delayed release (DR/EC) 81 mg PO DAILY Qty: 90 2RF budesonide-formoterol [Symbicort] 160-4.5 mcg/actuation HFA aerosol inhaler 2 puff INHALATION BID Qty: 10.2 2RF Rx Instructions: rinse mouth out after each use Primary Care Provider: Bennett Blandon Referrals: Bennett Blandon, DO [Primary Care Provider] - As soon as possible Disposition Disposition: Home, Self Care
[2022-07-19 08:52] VITALS: O2SAT 92
--- NOTE | 2022-07-19 08:55 | RAD_ITS ---
STUDY: X-RAY CHEST REASON FOR EXAM: Female, 47 years old. Chest pain TECHNIQUE: PA and lateral views of the chest. COMPARISON: Comparison is made with prior studies dated 09/18/2021. FINDINGS: EKG electrodes are seen. Hyperinflation. The lungs are clear. There is no demonstrated pleural abnormality. Normal size heart. Normal mediastinum and kt. Normal visualized pulmonary arteries. Normal visualized aortic arch and descending thoracic aorta. There are degenerative changes of the visualized thoracic spine. Normal visualized ribs, clavicles, and shoulders. There is no demonstrated abnormality of the visualized soft tissue structures of the upper abdomen. RAD/Chest PA and Lateral IMPRESSION: Hyperinflation. The lungs are clear. Electronically Signed: Rodney Saleh MD at 9:29 EDT ,
[2022-07-19 08:56] VITALS: BP 141/80; PULSE 74; RESP 21; TEMP 36.8; O2SAT 94
[2022-07-19] MEDS: Aspirin 81 MG TAB.CHEW 324 MG PO (09:04)
--- NOTE | 2022-07-19 09:08 | NURSING ---
CBC IS TOO SHORT. PER ANDRÉS IN LAB. HE WILL REPRINT LABEL
[2022-07-19 09:21] LABS: Anion Gap 3 (5-15); BUN 10 mg/dL (7-18); BUN/Creat Ratio 12.6 RATIO (10-20); Calcium,Total 8.8 mg/dL (8.5-10.1); Chloride 109 mmol/L (98-107); Creatinine, Serum 0.79 mg/dL (0.55-1.02); EST Glomerular Filtration Rate 82 mL/min (>60); Est Glom Filt Rate - Afr Amer 99 mL/min (>60); Estimated Creatinine Clearance 68.88 ml/min; Glucose 115 mg/dL (74-106); Sodium Level 142 mmol/L (136-145); Troponin-I HS (w/2H Reflex) 3 pg/mL (3.0-54.0)
[2022-07-19 09:25] LABS: Absolute Lymphocyte Count 2.15 X10^3/uL (0.83-4.51); Absolute Neutrophil Count 3.4 X10^3/uL (2.0-7.7); Basophil# 0.03 X10^3/uL; Basophil% 0.5 % (0-1); Eosinophil# 0.17 X10^3/uL; Eosinophils% 2.7 % (0-5); Hemoglobin 13.8 g/dL (12.0-15.0); Lymphocyte # 2.15 X10^3/ul (0.83-4.51); Lymphocyte % 33.6 % (19-41); Mean Corp Hgb Conc 32.9 g/dL (32-36); Mean Corpuscular Hgb 32.2 pg (27.0-32.0); Mean Corpuscular Volume 98.1 fL (81-99); Mean Platelet Vol. 8.5 fl (6.2-12.0); Monocyte# 0.58 X10^3/uL; Monocyte% 9.1 % (0-10); NRBC Flagged by Analyzer 0 % (0-5); Neutrophil # 3.44 X10^3/uL (2.7-7.7); Neutrophil % 53.8 % (47-70); Platelet Count 250 K/mm3 (150-450); RBC Distribution Width CV 13.9 % (11.6-14.6); RBC Distribution Width SD 50.4 fl (35.1-43.9); Red Blood Count 4.28 M/mm3 (4.2-5.4); White Blood Count 6.4 K/mm3 (4.4-11.0)
[2022-07-19 09:44] VITALS: BP 134/76; RESP 17; O2SAT 94
[2022-07-19 11:02] LABS: Reflex Troponin-HS? (from REC) Y
== END 2022-07-19 09:47 | disposition home or self-care (01) ==
PROVIDERS: Emergency Provider Emergency Medicine; PCP Family Medicine; Visit Provider Emergency Medicine
DX: R07.9 Chest pain, unspecified (principal); J44.9 Chronic obstructive pulmonary disease, unspecified; F17.210 Nicotine dependence, cigarettes, uncomplicated; E78.5 Hyperlipidemia, unspecified; I25.10 Atherosclerotic heart disease of native coronary artery without angina pectoris; M94.0 Chondrocostal junction syndrome [Tietze]; I10 Essential (primary) hypertension; K20.90 Esophagitis, unspecified without bleeding; Z79.82 Long term (current) use of aspirin; Z79.899 Other long term (current) drug therapy; Z79.1 Long term (current) use of non-steroidal anti-inflammatories (NSAID)
CPT/HCPCS: 71046; 80048; 84484; 85025; 93005; 99284; A4216

== ENCOUNTER 2023-03-08 16:10 | Emergency (ER) | payer MEDICAID, SELFPAY ==
[2021-08-31 15:12] VITALS: BMI 23.6
[2023-03-08 16:11] VITALS: BP 144/87; PULSE 85; RESP 16; TEMP 36.6; O2SAT 94; BMI 26.6
--- NOTE | 2023-03-08 16:19 | CT_ITS ---
INDICATION: Severe headache, hx of aneurysm clip behind R eye EXAMINATION: CT BRAIN WITH CONTRAST TECHNIQUE: Noncontrast axial images were obtained of the brain. Subsequently, routine carotid CT angiogram protocol was performed without and with IV contrast. In addition, images were obtained of the [place]. NASCET criteria using the distal ICAs for comparison were used for evaluation of stenoses. 3D reconstructions were reviewed. A radiation dose optimization technique was used for this scan. IV Contrast dosage and agent: 73 mL [id number] COMPARISON: 11/14/2016 FINDINGS: --CT BRAIN: BRAIN PARENCHYMA: No intra- or extra-axial hemorrhage. No evidence of acute infarct. No intracranial mass or mass effect. There is preservation of the jackson/white matter interface. Posterior fossa structures are unremarkable. CSF SPACES: Appropriate for age. No hydrocephalus. Basal cisterns are patent. CALVARIUM, SKULL BASE, PARANASAL SINUSES AND MASTOID AIR CELLS: Clear. No discrete lytic or blastic abnormalities. Right pterional craniotomy redemonstrated. ASPECTS Score for Acute Strokes: 10 --CTA NECK: AORTIC ARCH AND BRANCHES: Left vertebral artery origin from the aortic arch. RIGHT CCA: No occlusion, significant stenosis or dissection. RIGHT ICA: No occlusion, significant stenosis or dissection. LEFT CCA: No occlusion, significant stenosis or dissection. LEFT ICA: No occlusion, significant stenosis or dissection. RIGHT VERTEBRAL ARTERY: No occlusion, significant stenosis or dissection. LEFT VERTEBRAL ARTERY: No occlusion, significant stenosis or dissection. NECK SOFT TISSUES: Unremarkable. --CTA HEAD: --Anterior circulation: ICAs: No significant stenosis at the intracranial/visualized segments. Right ICA/Pcomm aneurysm clip redemonstrated. ACAs: No significant stenosis at the visualized segments. ACOM: Present. MCAs: No significant stenosis at the visualized segments. --Posterior circulation: PCOMs: Present on the left imcu nurse: No significant stenosis at the visualized segments. BASILAR ARTERY: No significant stenosis. VERTEBRAL ARTERIES: No significant stenosis at the intradural/visualized segments. No evidence of new intracranial aneurysm or vascular malformation. CT/CTA Head AND Neck W/ Contrast IMPRESSION: Negative CT Brain, CTA Carotid, and CTA Brain. Right ICA/posterior communicating artery aneurysm clip redemonstrated. Electronically Signed: Elias Jaquez MD at 17:37 EDT ,
--- NOTE | 2023-03-08 16:23 | EDS_ITS ---
HPI History of Present Illness Chief Complaint: Eye Problem Detail of Chief Complaint: Headache with pain behind right eye Informant: patient Narrative Narrative: Patient presents to the emergency department with complaint of a headache that started suddenly about 2 hours ago. Patient states that she has had similar headaches in the past. 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 Patient states that she gets similar headaches off and on and has been diagnosed with migraines. She denies any falls or head injuries. She denies recent illness. She complains of photophobia and nausea. She rates her headache a 10 out of 10. [facility] Medical History Anxiety Arthritis Atherosclerotic heart disease of [place] coronary artery without angina pectoris Back pain Dong's esophagus Cardiology follow-up encounter Chronic back pain Chronic cough COPD (chronic obstructive pulmonary disease) Depression Difficulty chewing Dysuria Essential hypertension Fatty liver Gastric reflux Gastritis GERD (gastroesophageal reflux disease) Hidradenitis suppurativa High cholesterol History of echocardiogram history of intracerebral aneurysm History of stress test Hx of colonic polyp Hyperlipidemia Hypertension Interstitial cystitis Ischemic cardiomyopathy Marijuana use Migraine headache Monilial rash Non-STEMI (non-ST elevated myocardial infarction) Normal stress echocardiogram Post-menopausal Renal cysts, acquired, bilateral Seasonal allergies Seizures Shortness of breath on exertion Smoker Smoking addiction Tubular adenoma of colon Wears dentures Home Medications ibuprofen 200 mg tablet 600 mg PO Q8H PRN PRN Fever #30 tabs 11/26/18 [Rx Last Taken Unknown] Nebulizer machine #1 ea 02/11/19 [Rx Last Taken Unknown] aspirin 81 mg tablet,delayed release (Adult Aspirin Regimen) 81 mg PO DAILY #90 tabs 12/31/20 [Rx Last Taken Unknown] pseudoephedrine-guaifenesin ER 60 mg-600 mg tablet,extend release 12hr (Mucinex D) 1 tab PO Q12H PRN cold symptoms #30 tabs 09/01/21 [Rx Last Taken Unknown] atorvastatin 80 mg tablet 80 mg PO QHS #90 tabs 12/14/21 [Rx Last Taken Unknown] clopidogrel 75 mg tablet 75 mg PO DAILY #90 tabs 12/14/21 [Rx Last Taken 02/19/22] phenazopyridine 100 mg tablet 100 mg PO TID PRN pain #6 tabs 01/19/22 [Rx Last Taken Unknown] pantoprazole 40 mg tablet,delayed release (Protonix) 40 mg PO BID #120 tabs 03/09/22 [Rx Last Taken Unknown] budesonide-formoterol HFA 160 mcg-4.5 mcg/actuation aerosol inhaler (Symbicort) 2 puff inhalation BID #10.2 grams 12/28/22 [Rx Last Taken Unknown] albuterol sulfate 2.5 mg/3 mL (0.083 %) solution for nebulization 2.5 mg (3 mL) inhalation Q4H PRN PRN SOB and/or wheezing #180 mL 01/02/23 [Rx Last Taken Unknown] ondansetron 4 mg disintegrating tablet 4 mg PO Q8H PRN PRN Nausea #10 tabs 03/08/23 [Rx Last Taken Unknown] Allergy/AdvReac Type Severity Reaction Status Date / Time Latex, Natural Rubber Allergy Severe hives Verified 03/08/23 16:13 nitrofurantoin Allergy Severe Hives Verified 03/08/23 16:13 [From Macrodantin] bupropion HCl AdvReac Other Verified 03/08/23 16:13 [From Wellbutrin] prednisone AdvReac Other Verified 03/08/23 16:13 Family History Mother Myocardial infarction Diabetes Father Myocardial infarction Colon cancer Diabetes Grandmother CVA (cerebral vascular accident) Diabetes Surgical History History of cardiac catheterization History of coronary artery stent placement (12/02/17) History of oophorectomy History of total hysterectomy Social History Smoking Status: Current every day smoker tobacco type: cigarettes alcohol intake: former substance use type: marijuana and other details: daily marijuana caffeine: Yes Type: coffee what type of physical activity do you participate in: none seatbelt use: sometimes do you feel safe at home: Yes ROS ROS ED Review of Systems ROS Unobtainable: other Constitutional Constitutional ED: Reports lethargy; Denies chills, fever(s), sweats or weight loss Eyes Eyes: Denies blurry vision, change in vision or diplopia ENT ENT ED: Reports other Details: Photophobia ; Denies rhinorrhea or sore throat Cardiovascular Cardiovascular: Denies chest pain, orthopnea or racing heartbeat Respiratory/Chest Respiratory/Chest: Denies cough, dyspnea, dyspnea on exertion, orthopnea or spu kaylin Gastrointestinal Gastrointestinal: Reports nausea; Denies abdominal pain, diarrhea or vomiting Genitourinary Genitourinary ED: Denies dysuria, hematuria or urinary frequency Musculoskeletal Musculoskeletal: Denies arthralgias, back pain, myalgias or neck pain Integumentary Denies abscess, Abrasions or rash Neurologic Neurologic: Reports headache(s); Denies weakness Psychiatric Psychiatric: Denies anxiety, depression or suicidal thoughts Endocrine Endocrinology: Denies polydipsia, polyphagia or polyuria Hematologic/Lymphatic Hematologic/Lymphatic: Denies easy bleeding, easy bruising or lymphadenopathy Allergic/Immunologic Allergic/Immunologic ED: Denies mouth swelling, tongue swelling or urticaria EXAM Physical Exam Const Vital Signs: 03/08/23 16:11 Temperature 98 F Temperature Source Temporal Pulse Rate 85 Respiratory Rate 16 Blood Pressure 144/87 H Blood Pressure Mean 106 Pulse Ox 94 Oxygen Delivery Method Room Air Positive well nourished and well developed General Appearance ED: well developed and NAD HEENT Reports TM's clear and moist mucous membranes normocephalic and atraumatic; Negative for trauma or tenderness Tympanic Membrane ED: Yes TM's clear Eyes PERRL and EOMs intact bilaterally General Eye ED: Negative for pale conjunctiva or scleral icterus Neck no lymphadenopathy, supple and no JVD General: Negative for tenderness Chest Wall inspection of chest normal and palpation of chest normal Chest: Negative for tenderness Resp normal respiratory effort and clear to auscultation bilaterally Effort and Inspection: Negative for respiratory distress or pain with movement Auscultation: Negative for rhonchi, wheezes or diminished lung sounds Cardio regular rate, regular rhythm, S1 normal heart sound, S2 normal heart sound and no murmurs Peripheral Pulses: pulses 2+ throughout GI normal to inspection, nondistended, normoactive bowel sounds, soft to palpation, non-tender, non-distended and no masses Back/Spine no CVA tenderness and no thoracic nor lumbar tenderness Extremity normal to inspection General Extremety ED: Negative for edema General Extremity: Negative for edema Neuro oriented x3, CN's II-XII intact bilaterally, no sensory deficits noted and gait normal Neuro Narrative: Finger-nose and heel hernandez testing within normal limits, negative Romberg, negative for drift, fundi benign Sensorium / Orientation: awake, alert, oriented to person, oriented to place and oriented to time Motor Exam: strength 5/5 throughout and strength abnormal Psych mental status grossly normal Skin no rashes or lesions noted and no wounds MDM MDM MDM Narrative Medical decision making narrative: We will establish on arrival. Patient medicated with Reglan, Benadryl, and Toradol. She had a CTA of the head and neck that was unremarkable and did show the prior clipping of the right anterior communicating artery aneurysm. Patient had a CBC with differential and chemistries that were unremarkable. On reevaluation at 1740 she is feeling significantly improved. This point she will be discharged to home. Advised to follow-up with her primary care physician 3 to 5 days. She will be given a prescription for Zofran. Lab Data Attestation: I reviewed the patient's lab results. Discharge Plan Triage Chief Complaint: Eye Problem ED Provider: Franco Woody Dx/Rx/DC Orders Clinical Impression: Migraine headache Instructions: ED, Migraine (Classical) Prescriptions: New ondansetron [ondansetron] 4 mg tablet,disintegrating 4 mg PO Q8H PRN PRN (Reason: Nausea) Qty: 10 0RF No Action pseudoephedrine-guaifenesin [Mucinex D] 60-600 mg tablet extended release 12 hr 1 tab PO Q12H PRN (Reason: cold symptoms) Qty: 30 0RF atorvastatin 80 mg tablet 80 mg PO QHS Qty: 90 3RF clopidogrel 75 mg tablet 75 mg PO DAILY Qty: 90 3RF pantoprazole [Protonix] 40 mg tablet,delayed release (DR/EC) 40 mg PO BID Qty: 120 0RF Rx Instructions: take one pill twice a day for 2 months, then resume once a day dosing phenazopyridine 100 mg tablet 100 mg PO TID PRN (Reason: pain) Qty: 6 0RF ibuprofen 200 MG tablet 600 mg PO Q8H PRN PRN (Reason: Fever) Qty: 30 0RF (DME) Nebulizer machine Qty: 1 0RF Dose Instruction: As directed Rx Instructions: As directed aspirin [Adult Aspirin Regimen] 81 mg tablet,delayed release (DR/EC) 81 mg PO DAILY Qty: 90 2RF budesonide-formoterol [Symbicort] 160-4.5 mcg/actuation HFA aerosol inhaler 2 puff INHALATION BID Qty: 10.2 2RF Rx Instructions: rinse mouth out after each use albuterol sulfate 2.5 mg /3 mL (0.083 %) solution for nebulization 2.5 mg INHALATION Q4H PRN PRN (Reason: SOB and/or wheezing) Qty: 180 0RF Primary Care Provider: Benentt Blandon Referrals: Bennett Blandon, [Primary Care Provider] - 3-5 Days Disposition Disposition: Home, Self Care
[2023-03-08] MEDS: 0.9% Normal Saline 1,000 ML 1000 ML IV (16:34)
[2023-03-08] MEDS: Metoclopramide 10 MG/2 ML Vial IV (16:34)
[2023-03-08] MEDS: DiphenhydrAMINE 50 MG/ML Syringe 25 MG IV (16:34)
[2023-03-08] MEDS: Ketorolac 15 MG/ML Vial IV (16:35)
[2023-03-08 16:51] LABS: Absolute Lymphocyte Count 4.31 X10^3/uL (0.83-4.51); Absolute Neutrophil Count 6.5 X10^3/uL (2.0-7.7); Basophil# 0.06 X10^3/uL; Basophil% 0.5 % (0-1); Eosinophil# 0.21 X10^3/uL; Eosinophils% 1.7 % (0-5); Hematocrit 46.4 % (37-47); Hemoglobin 15.1 g/dL (12.0-15.0); Lymphocyte # 4.31 X10^3/ul (0.83-4.51); Lymphocyte % 35.6 % (19-41); Mean Corp Hgb Conc 32.5 g/dL (32-36); Mean Corpuscular Volume 98.3 fL (81-99); Mean Platelet Vol. 8.9 fl (6.2-12.0); Monocyte# 0.99 X10^3/uL; Monocyte% 8.2 % (0-10); NRBC Flagged by Analyzer 0 % (0-5); Neutrophil # 6.48 X10^3/uL (2.7-7.7); Neutrophil % 53.6 % (47-70); POSITIVE MORPHOLOGY YES; Platelet Count 292 K/mm3 (150-450); RBC Distribution Width CV 12.8 % (11.6-14.6); RBC Distribution Width SD 46.2 fl (35.1-43.9); Red Blood Count 4.72 M/mm3 (4.2-5.4); White Blood Count 12.1 K/mm3 (4.4-11.0)
[2023-03-08 16:55] LABS: Anion Gap 7 (5-15); BUN 7 mg/dL (7-18); BUN/Creat Ratio 8.8 RATIO (10-20); Calcium,Total 9.2 mg/dL (8.5-10.1); Chloride 105 mmol/L (98-107); EST Glomerular Filtration Rate 82 mL/min (>60); Est Glom Filt Rate - Afr Amer 99 mL/min (>60); Estimated Creatinine Clearance 68.02 ml/min; Glucose 113 mg/dL (74-106); Potassium 4.2 mmol/L (3.5-5.1); Sodium Level 142 mmol/L (136-145)
[2023-03-08 17:16] LABS: Differential Indicated SCAN CRITERIA MET
[2023-03-08 17:40] VITALS: PULSE 67; RESP 16; O2SAT 99
[2023-03-08 17:41] LABS: Differential Comment SCANNED
== END 2023-03-08 17:54 | disposition home or self-care (01) ==
PROVIDERS: Emergency Provider Emergency Medicine; PCP Family Medicine; Visit Provider Emergency Medicine
DX: G43.909 Migraine, unspecified, not intractable, without status migrainosus (principal); J44.9 Chronic obstructive pulmonary disease, unspecified; I25.10 Atherosclerotic heart disease of native coronary artery without angina pectoris; I10 Essential (primary) hypertension; F17.210 Nicotine dependence, cigarettes, uncomplicated; E78.00 Pure hypercholesterolemia, unspecified
CPT/HCPCS: 70496; 70498; 80048; 85025; 96361; 96374; 96375; 99283; J7030; Q9967; A4216

== ENCOUNTER → 2023-11-22 | Outpatient (CLI) | payer MEDICAID, SELFPAY ==
[2021-08-31 15:12] VITALS: BMI 23.6
== END | disposition home or self-care (01) ==
PROVIDERS: PCP Family Medicine; Referring Provider Physician Assistant; Visit Provider Physician Assistant
DX: J06.9 Acute upper respiratory infection, unspecified (principal)
CPT/HCPCS: 87635

== ENCOUNTER → 2023-12-13 | Outpatient (CLI) | payer MEDICAID, SELFPAY ==
[2021-08-31 15:12] VITALS: BMI 23.6
== END | disposition home or self-care (01) ==
LOC: LABSPEC 14:28
PROVIDERS: PCP Family Medicine; Visit Provider Nurse Practitioner
DX: N89.8 Other specified noninflammatory disorders of vagina (principal)
CPT/HCPCS: 87070; 87205

== ENCOUNTER 2025-01-21 10:26 | Emergency (ER) | payer MEDICAID, SELFPAY ==
[2021-08-31 15:12] VITALS: BMI 23.6
[2025-01-21 10:28] VITALS: BP 153/87; PULSE 77; RESP 16; TEMP 36.1; O2SAT 97; BMI 24.2
--- NOTE | 2025-01-21 11:04 | EDS_ITS ---
HPI History of Present Illness Chief Complaint: Headache Narrative Narrative: Patient is a 49-year-old female with past medical history of migraine headache, depression, anxiety, hypercholesteremia, seizures, hypertension, hyperlipidemia, COPD who presents to the emergency department with a chief complaint of headache. Patient states that she woke up this morning with a headache had nausea vomiting. States that this feels like her typical migraine headache she tried to take Tylenol this morning without any symptomatic relief. She states that normally they give Toradol and her symptoms improve. PFSH PFSH Medical History Tubular adenoma of colon Dong's esophagus Gastritis GERD (gastroesophageal reflux disease) Fatty liver Wears dentures Post-menopausal Depression Anxiety Marijuana use High cholesterol Back pain Migraine headache Seizures Difficulty chewing Gastric reflux Smoker Shortness of breath on exertion Chronic cough Normal stress echocardiogram History of echocardiogram History of stress test Hypertension Cardiology follow-up encounter Essential hypertension Hx of colonic polyp Renal cysts, acquired, bilateral Seasonal allergies Dysuria Monilial rash Hyperlipidemia Hidradenitis suppurativa Interstitial cystitis Arthritis history of intracerebral aneurysm Atherosclerotic heart disease of [place] coronary artery without angina pectoris Chronic back pain Ischemic cardiomyopathy Non-STEMI (non-ST elevated myocardial infarction) COPD (chronic obstructive pulmonary disease) Smoking addiction Home Medications ?Medication ?Instructions ?Recorded ?Last Taken ?Type Nebulizer machine #1 ea 02/11/19 Unknown Rx pantoprazole 40 mg tablet,delayed 40 mg PO BID #120 ta bs 03/09/22 Unknown Rx release (Protonix) ondansetron 4 mg disintegrating 4 mg PO Q8H PRN PRN Na usea #10 tabs 03/08/23 Unknown Rx tablet pseudoephedrine-guaifenesin ER 60 1 tab PO Q12H PRN co ld symptoms 11/22/23 Unknown Rx mg-600 mg tablet,extend release #30 tabs 12hr (Mucinex D) aspirin 81 mg tablet,delayed 81 mg PO DAILY #90 tabs 0 12/13/23 Unknown Rx release (Adult Aspirin Regimen) atorvastatin 80 mg tablet 80 mg PO QHS #90 tabs Unknown Rx clopidogrel 75 mg tablet 75 mg PO DAILY #90 tabs 0206/28 Unknown Rx fluconazole 150 mg tablet 150 mg PO Q3D 2 doses #2 tab s 12/13/23 Unknown Rx albuterol sulfate 2.5 mg/3 mL 2.5 mg (3 mL) inhalation Q4H PRN 01/15/24 Unknown Rx (0.083 %) solution for nebulization PRN SOB and/or whe ezing #180 mL budesonide-formoterol HFA 160 2 puff PO BID #10.2 GMS 11/28/24 Unknown Rx mcg-4.5 mcg/actuation aerosol inhaler (Symbicort) Allergy/AdvReac Type Severity Reaction Status Date / Time Latex, Natural Rubber Allergy Severe hives Verified 01/21/25 10:29 nitrofurantoin (From Allergy Severe Hives Verified 01/21/25 10:29 Macrodantin) bupropion HCl (From AdvReac Other Verified 01/21/25 10:29 Wellbutrin) prednisone AdvReac Other Verified 01/21/25 10:29 Family History Mother Myocardial infarction Diabetes Father Myocardial infarction Colon cancer Diabetes Grandmother CVA (cerebral vascular accident) Diabetes Surgical History History of cardiac catheterization History of coronary artery stent placement (12/02/17) History of oophorectomy History of total hysterectomy Social History Smoking Status: Current every day smoker tobacco type: cigarettes alcohol intake: former substance use type: marijuana and other details: daily marijuana caffeine: Yes Type: coffee what type of physical activity do you participate in: none seatbelt use: sometimes do you feel safe at home: Yes ROS ROS ED ROS Narrative Constitutional: Complains of headache as noted above denies lightheadedness dizziness fevers or chills Eyes: Patient states that she does have some change in vision and notes that this is blurry but states that this is associate with her typical migraine headache Cardiovascular: Denies chest pain or palpitations Respiratory: Denies coughing wheezing shortness of breath Abdomen: Complains of nausea vomiting denies abdominal pain : Denies urinary symptoms Neurological: Denies numbness, discomfort going Musculoskeletal: Denies back pain Skin: Denies rashes or lesions EXAM Physical Exam Narrative Exam Narrative: General: Patient lying in bed rest comfortably did not appear to be in acute distress Head: Atraumatic, normocephalic Eyes: PERRL bilaterally, EOMI bilateral, no conjunctival injection noted Neck: Soft, supple, trachea midline Cardiovascular: Regular rate and rhythm no murmurs gallops rubs noted Respiratory: Clear to auscultation bilaterally no rales rhonchi or wheezes noted Abdomen: Soft, nondistended, nontender to palpation Extremities: +5/5 strength noted in the bilateral upper and lower extremities, radial pulses +2/4 in the bilateral extremities, no pedal edema on exam Neurological: Patient following commands knew that she was at [facility] year is 2024. NIH of 0 GCS 15 Skin: Warm, dry, intact Const Vital Signs: 01/21/25 10:28 Temperature 97 F L Temperature Source Oral Pulse Rate 77 Respiratory Rate 16 Blood Pressure 153/87 H Blood Pressure Mean 109 Pulse Ox 97 Oxygen Delivery Method Room Air MDM MDM MDM Narrative Medical decision making narrative: Patient is a 49-year-old female who presents to the emerged part with a chief complaint of migraine headache. States that this feels like her typical migraine headache. On the differential diagnose includes but not limited to migraine headache, tension headache, dehydration, intracranial hemorrhage although do feel this less likely as she states that this does feel like her typical migraine headaches. Patient be given Reglan, Tylenol, IV fluids. She will be reevaluated. Patient refused her CT head. Patient notified the nursing staff that she is feeling better and wants to go home this point in time. I went discussed with the patient and advised her the necessity of the CT head as was concern for potential intracranial hemorrhage although she states that this felt similar to her migraine headaches. I advised her since this woke her up out of his sleep and she had persistent nausea and vomiting that there was a chance that she has a head bleed. I discussed that there is a chance that we missed a intracranial hemorrhage of this case this could worsen leading to her . She verbalized understanding of this and still would like to leave. Patient will sign out AGAINST MEDICAL ADVICE. She is advised to follow-up with her primary care physician return with worsening symptoms or other concerns. All question concerns answered at bedside. Discharge Plan Triage Chief Complaint: Headache ED Provider: Vladimir Pascual Dx/Rx/DC Orders Clinical Impression: Headache Prescriptions: No Action pantoprazole [Protonix] 40 mg tablet,delayed release (DR/EC) 40 mg PO BID Qty: 120 0RF Rx Instructions: take one pill twice a day for 2 months, then resume once a day dosing pseudoephedrine-guaifenesin [Mucinex D] 60-600 mg tablet extended release 12 hr 1 tab PO Q12H PRN (Reason: cold symptoms) Qty: 30 0RF fluconazole 150 mg tablet 150 mg PO Q3D Qty: 2 1RF clopidogrel 75 mg tablet 75 mg PO DAILY Qty: 90 0RF atorvastatin 80 mg tablet 80 mg PO QHS Qty: 90 0RF aspirin [Adult Aspirin Regimen] 81 mg tablet,delayed release (DR/EC) 81 mg PO DAILY Qty: 90 0RF albuterol sulfate 2.5 mg /3 mL (0.083 %) solution for nebulization 2.5 mg INHALATION Q4H PRN PRN (Reason: SOB and/or wheezing) Qty: 180 3RF ondansetron [ondansetron] 4 mg tablet,disintegrating 4 mg PO Q8H PRN PRN (Reason: Nausea) Qty: 10 0RF (DME) Nebulizer machine Qty: 1 0RF Dose Instruction: As directed Rx Instructions: As directed budesonide-formoterol [Symbicort] 160-4.5 mcg/actuation HFA aerosol inhaler 2 puff PO BID Qty: 10.2 0RF Primary Care Provider: Bennett Blandon Referrals: Bennett Blandon DO [Primary Care Provider] - Print Language: Albanian Disposition Disposition: Against Medical Advice Discharge Date/Time: 01/21/25 12:04
[2025-01-21] MEDS: 0.9% Normal Saline (1000mL) 1,000 ML 999 ML IV (11:09)
[2025-01-21] MEDS: Acetaminophen 500 MG Tablet 1000 MG PO (11:10)
[2025-01-21] MEDS: Metoclopramide 10 MG/2 ML Vial IV (11:10)
--- NOTE | 2025-01-21 11:33 | ED.RN ---
pT. MOANING AND YELLING IN PAIN, THIS RN WENT TO BEDSIDE TO ASSESS AND LET HER KNOW THAT SHE WAS JUST MEDICATED AND THAT THOSE MEDS NEEDED TIME TO WORK. IF IN TIME THEY DID NOT HELP WE COULD TRY TO GET MORE MEDICATION. PT. REFUSED CT SCAN AT THIS TIME D/T MY INSURANCE DOES NOT COVER IT. NOTIFIED
--- NOTE | 2025-01-21 12:00 | ED.RN ---
PT REFUSED CT SCAN D/T CONCERN ABOUT INSURANCE COVERAGE. DR. STONER AWARE. PT WISHES TO LEAVE. DR. STONER INFORMED, PT TO SIGN OUT AMA.
== END 2025-01-21 12:04 | disposition left against medical advice (07) ==
LOC: ED 11:18
PROVIDERS: Emergency Provider Emergency Medicine; PCP Family Medicine; Visit Provider Emergency Medicine
DX: R51.9 Headache, unspecified (principal); J44.9 Chronic obstructive pulmonary disease, unspecified; I25.10 Atherosclerotic heart disease of native coronary artery without angina pectoris; E78.00 Pure hypercholesterolemia, unspecified; I10 Essential (primary) hypertension; K21.9 Gastro-esophageal reflux disease without esophagitis; F17.210 Nicotine dependence, cigarettes, uncomplicated; Z53.29 Procedure and treatment not carried out because of patient's decision for other reasons
CPT/HCPCS: 96361; 96374; 99283; A4216

== ENCOUNTER 2025-10-22 09:14 | Emergency (ER) | payer MEDICAID, SELFPAY ==
[2021-08-31 15:12] VITALS: BMI 23.6
[2025-10-22 09:16] VITALS: BP 176/72; PULSE 102; RESP 16; TEMP 36.6; O2SAT 98; BMI 24.7
--- NOTE | 2025-10-22 09:49 | EX.ED.DYSGE1 ---
HPI History of Present Illness Chief Complaint: Headache Narrative Narrative: Patient is a 50-year-old female with a past medical history of GERD, Dong's esophagus, anxiety, depression, migraine headaches, seizure, hypertension, aneurysm with intracranial hemorrhage, COPD who presented to the emergency department the chief complaint headache. States that her headache has been going on now for approximately 3 weeks she states that this feels like one of her migraine headaches however she cannot fully get rid of this headache. She denies any head injury or trauma. She notes that my family will not leave me alone and wanted me to get evaluated. She states that she was taking ibuprofen for headache. Patient states that she has been eating and drinking. PFSH PFSH Medical History Right ankle pain Tubular adenoma of colon Dong's esophagus Gastritis GERD (gastroesophageal reflux disease) Fatty liver Wears dentures Post-menopausal Depression Anxiety Marijuana use High cholesterol Back pain Migraine headache Seizures Difficulty chewing Gastric reflux Smoker Shortness of breath on exertion Chronic cough Normal stress echocardiogram History of echocardiogram History of stress test Hypertension Cardiology follow-up encounter Essential hypertension Hx of colonic polyp Renal cysts, acquired, bilateral Seasonal allergies Dysuria Monilial rash Hyperlipidemia Hidradenitis suppurativa Interstitial cystitis Arthritis history of intracerebral aneurysm Atherosclerotic heart disease of [place] coronary artery without angina pectoris Chronic back pain Ischemic cardiomyopathy Non-STEMI (non-ST elevated myocardial infarction) COPD (chronic obstructive pulmonary disease) Smoking addiction Home Medications ?Medication ?Instructions ?Recorded ?Last Taken ?Type Nebulizer machine #1 ea 02/11/19 Unknown Rx aspirin 81 mg tablet,delayed 81 mg PO DAILY #90 tabs 12/13/23 Unknown Rx release (Adult Aspirin Regimen) atorvastatin 80 mg tablet 80 mg PO QHS #90 tabs 12/13/23 Unknown Rx clopidogrel 75 mg tablet 75 mg PO DAILY #90 tabs 12/13/23 Unknown Rx albuterol sulfate 2.5 mg/3 mL 2.5 mg (3 mL) inhalation Q4H PRN 01/15/24 10/08/25 Rx (0.083 %) solution for nebulization PRN SOB and/or wheezing #180 mL budesonide-formoterol HFA 160 2 puff PO BID #10.2 GMS 02/11/25 10/19/25 Rx mcg-4.5 mcg/actuation aerosol inhaler (Symbicort) ibuprofen 600 mg tablet 600 mg PO Q8H PRN pain #100 tabs 02/11/25 10/21/25 Rx Allergy/AdvReac Type Severity Reaction Status Date / Time Latex, Natural Rubber Allergy Severe hives Verified 10/22/25 09:16 nitrofurantoin (From Allergy Severe Hives Verified 10/22/25 09:16 Macrodantin) bupropion HCl (From AdvReac Other Verified 10/22/25 09:16 Wellbutrin) prednisone AdvReac Other Verified 10/22/25 09:16 Family History Mother Myocardial infarction Diabetes Father Myocardial infarction Colon cancer Diabetes Grandmother CVA (cerebral vascular accident) Diabetes Surgical History History of cardiac catheterization History of coronary artery stent placement (12/02/17) History of oophorectomy History of total hysterectomy Social History Smoking Status: Current every day smoker tobacco type: cigarettes alcohol intake: former substance use type: marijuana and other details: daily marijuana caffeine: Yes Type: coffee what type of physical activity do you participate in: none seatbelt use: sometimes do you feel safe at home: Yes ROS ROS ED ROS Narrative Constitutional: Complains of headache as noted above denies lightheadedness or dizziness Eyes: Denies double vision Cardiovascular: Denies chest pain Respiratory: Denies shortness of breath Abdomen: Denies abdominal pain nausea vomiting : Denies urinary symptoms Neurological: Denies numbness, weakness, tingling Musculoskeletal: Denies back pain Skin: Denies any rashes or lesions EXAM Physical Exam Narrative Exam Narrative: General: Patient was lying in bed rest comfortably did not appear to be in acute distress Head: Atraumatic, normocephalic Eyes: PERRL bilaterally, EOMI bilaterally, no conjunctival injection noted Neck: Soft, supple, trachea midline Cardiovascular: Patient tachycardic with a regular rhythm Respiratory: Clear to auscultation bilaterally Extremities: +5/5 strength noted in the bilateral upper and lower extremities Neurological: Patient following commands knew that she was at [facility] year is 2024 NIH of 0 GCS 15 Skin: Warm, dry, intact Const Vital Signs: 10/22/25 09:16 Temperature 98 F Temperature Source Temporal Pulse Rate 102 H Respiratory Rate 16 Blood Pressure 176/72 H Blood Pressure Mean 106 Pulse Ox 98 Oxygen Delivery Method Room Air MDM MDM MDM Narrative Medical decision making narrative: Patient is a 50-year-old female who presented to the emergency department with a chief complaint of headache. On the differential diagnose includes but not limited to migraine headache, tension headache, headache secondary to her hypertension, intracranial hemorrhage although do feel less likely as this has been going on 3 weeks this has been constant and does feel typical of her migraine headaches. Patient will be given IV fluids, 10 mg Reglan, a gram of Tylenol and be reevaluated. On reevaluation the patient states that she feels significantly improved and would like to go home at this point in time. She was advised to follow-up with her doctor in the outpatient setting and return with worsening symptoms or other concerns. She was encouraged to keep a close eye on her blood pressure as this was elevated here in the emergency department. All question concerns answered she was discharged home in stable condition Discharge Plan Triage Chief Complaint: Headache ED Provider: Vladimir Pascual Dx/Rx/DC Orders Clinical Impression: Headache, migraine, History of gastroesophageal reflux (GERD), Hypertension Prescriptions: No Action clopidogrel 75 mg tablet 75 mg PO DAILY Qty: 90 0RF atorvastatin 80 mg tablet 80 mg PO QHS Qty: 90 0RF aspirin [Adult Aspirin Regimen] 81 mg tablet,delayed release (DR/EC) 81 mg PO DAILY Qty: 90 0RF albuterol sulfate 2.5 mg /3 mL (0.083 %) solution for nebulization 2.5 mg INHALATION Q4H PRN PRN (Reason: SOB and/or wheezing) Qty: 180 3RF budesonide-formoterol [Symbicort] 160-4.5 mcg/actuation HFA aerosol inhaler 2 puff PO BID Qty: 10.2 6RF ibuprofen 600 mg tablet 600 mg PO Q8H PRN (Reason: pain) Qty: 100 1RF (DME) Nebulizer machine Qty: 1 0RF Dose Instruction: As directed Rx Instructions: As directed Primary Care Provider: Bennett Blandon Referrals: Bennett Blandon, DO [Primary Care Provider, Internal Medicine] Activity Restrictions/Additional Instructions: Follow-up with your doctor in the outpatient setting. Keep a close eye in your blood pressure as it was elevated here in the emergency department. Continue supportive care rotate Tylenol and ibuprofen [id number] when you do this you can take something every 3 hours for pain with a max dose of Tylenol in 24 hours 4000 mg max dose of ibuprofen 24 hours 3200 mg. Return with worsening symptoms or any other concerns Print Language: [place]ish Disposition Disposition: Home, Self Care
[2025-10-22] MEDS: 0.9% Normal Saline (1000mL) 1,000 ML 999 ML IV (10:49)
[2025-10-22 11:34] VITALS: BP 121/78; PULSE 87; RESP 16; TEMP 36.6; O2SAT 99
== END 2025-10-22 11:38 | disposition home or self-care (01) ==
PROVIDERS: Emergency Provider Emergency Medicine; PCP Family Medicine; Visit Provider Emergency Medicine
DX: G43.909 Migraine, unspecified, not intractable, without status migrainosus (principal); J44.9 Chronic obstructive pulmonary disease, unspecified; I10 Essential (primary) hypertension; I25.10 Atherosclerotic heart disease of native coronary artery without angina pectoris; F41.9 Anxiety disorder, unspecified; E78.00 Pure hypercholesterolemia, unspecified; K21.9 Gastro-esophageal reflux disease without esophagitis; F17.210 Nicotine dependence, cigarettes, uncomplicated
CPT/HCPCS: 96360; 99283